=== PATIENT | male | born 1940 | race Caucasian/White ===

== ENCOUNTER → 2020-07-05 11:55 | Outpatient (CLI) | payer MEDICARE, SELFPAY ==
--- NOTE | ~2020-07-05 | XR_ITS ---
EXAMINATION: XR hip RT min 2V DATE: 07/05/2020 12:54 INDICATION: Right hip pain. TECHNIQUE: 2 views of right hip were obtained. COMPARISON: None. FINDINGS: Bone alignment is normal. No fracture. There is mild right hip osteoarthritis. Osteitis pub is is noted. There is a penile prosthesis. IMPRESSION: 1. Mild right hip osteoarthritis. Reviewed, dictated and finalized at location A. 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
== END ==
PROVIDERS: Visit Provider Physician Assistant
DX: M16.11 Unilateral primary osteoarthritis, right hip (principal)
CPT/HCPCS: 73502

== ENCOUNTER 2020-10-23 08:02 | Outpatient (CLI) | payer MEDICARE, SELFPAY | END 2020-10-23 08:03 | disposition home or self-care (01) | LOC: ANHCOVIDVC 08:02 | DX: Z23 Encounter for immunization (principal) | CPT/HCPCS: 0001A; 91300 ==

== ENCOUNTER 2020-11-13 08:30 | Outpatient (CLI) | payer MEDICARE, SELFPAY | END 2020-11-13 08:31 | LOC: ANHCOVIDVC 08:30 | DX: Z23 Encounter for immunization (principal) | CPT/HCPCS: 0002A; 91300 ==

== ENCOUNTER → 2021-04-08 10:25 | Outpatient (CLI) | payer MEDICARE, SELFPAY ==
--- NOTE | ~2021-04-08 | DEXA_ITS ---
Bone Density Report Name: Bigg Gonzalez Age: 80 Sex: Male Ethnicity: White Date of : 1940 Indication: screening for osteoporosis; history of glucocorticoids; Referring Provider: Drew, [place] Study: Bone densitometry was performed. Exam Date: April 08, 2021 Accession number: [id number] Bone Density: Region BMD T-score Z-score Classification AP Spine (L1, L2, L4) 0.947 -1.3 -0.1 Osteopenia Femoral Neck (Left) 0.877 -0.4 1.2 Normal Total Hip (Left) 1.067 0.2 1.3 Normal Femoral Neck (Right) 0.856 -0.5 1.0 Normal Total Hip (Right) 1.022 -0.1 1.0 Normal Total Hip Mean 1.045 0.1 1.2 Normal World Health Organization criteria for BMD impression classify patients as: Normal (T-score at or above -1.0), Osteopenia (T-score between -1.0 and -2.5), or Osteoporosis (T-score at or below -2.5). 10-year Fracture Risk(1): Major Osteoporotic Fracture 7.0% Hip Fracture 2.0% Reported Risk Factors: [place] (), Neck BMD=0.856, BMI=37.4, glucocorticoids (1) FRAX(R) Version 3.08. Fracture probability calculated for an untreated patient. Fracture probability may be lower if the patient has received treatment. Previous Exams: Region Exam Age BMD T-score BMD Change BMD Change Date g/cm2 vs Baseline vs Previous AP Spine(L1, L2, L4) 04/08/2021 80 0.947 -1.3 -0.097* -0.097* 09/30/2018 78 1.044 -0.4 Total Hip(Left) 04/08/2021 80 1.067 0.2 -0.014 -0.014 09/30/2018 78 1.081 0.3 Total Hip(Right) 04/08/2021 80 1.022 -0.1 -0.010 -0.010 09/30/2018 78 1.032 0.0 *Denotes significance at 95% confidence level, LSC for AP Spine = 0.022 g/cm2, LSC for Total Hip = 0.027 g/cm2 Clinical Information Provided by Patient: Has taken Glucocorticoids Has used the following medications: Vitamin D, Calcium, PREDNIZONE Patient maximum height was 71 No regular weight bearing exercise Does not regularly consume dairy products Drinks caffeinated beverages Impression: The patient has low bone mass, based on the Total Spine T-score. The patient has an estimated ten-year risk of hip fracture of 2% and an estimated ten-year risk of major fracture of 7%, based on the WHO FRAX algorithm. The patient has risk factors, including: history of glucocorticoid therapy. The BMD for the AP Spine(L1, L2, L4) decreased, changing by -0.097 since the last DXA exam. Discussion: BONE DENSITY I
== END ==
PROVIDERS: Visit Provider Physician Assistant
DX: Z51.81 Encounter for therapeutic drug level monitoring (principal); Z79.52 Long term (current) use of systemic steroids
CPT/HCPCS: 77080

== ENCOUNTER → 2021-05-09 08:38 | Outpatient (CLI) | payer MEDICARE, SELFPAY ==
--- NOTE | ~2021-05-09 | XR_ITS ---
EXAMINATION: XR lumbar spine 2-3V EXAM DATE: 05/09/2021 09:04 INDICATION: Chronic bilateral low back pain without sciatica. Right hip and right buttock pain. TECHNIQUE: Lumber spine frontal, lateral, lateral L5-S1 projections for interpretation. There is no prior study for comparison. FINDINGS: There is mild thoracolumbar dextrocurvature, lumbar levocurvature. Sacrum, sacroiliac joint s, sacral arcuate lines are intact. There is moderate abdominal aortic arteriosclerosis. Mild diffuse lumbar disc disease. The vertebral body heights appear maintained. There is moderate mid and lower l umbar facet arthropathy. Sacrum, sacroiliac joints, sacral arcuate lines are intact. IMPRESSION: 1. Moderate lumbar facet arthropathy. 2. Mild thoracolumbar scoliosis. Reviewed, dictated and finalized at location B.
== END ==
PROVIDERS: Visit Provider Physician Assistant
DX: M47.816 Spondylosis without myelopathy or radiculopathy, lumbar region (principal); M41.9 Scoliosis, unspecified; I70.0 Atherosclerosis of aorta
CPT/HCPCS: 72100

== ENCOUNTER 2023-09-08 05:42 | Inpatient (IN) | payer MEDICARE, SELFPAY ==
[2023-09-08] VITALS (31 sets, daily range): BP systolic 118–178; BP diastolic 65–109; PULSE 82–113; RESP 16–26; TEMP 36.5–37.3; O2SAT 90–97; BMI 33.7
--- NOTE | ~2023-09-08 | CT_ITS ---
EXAMINATION: CT chst ab clementine nazario w DATE: 09/08/2023 08:32 INDICATION: Left-sided chest pain and abdominal pain TECHNIQUE: Computed tomography (CT) of the chest, abdomen, pelvis, thoracic and lumbar spine was perf ormed with 100 cc Omnipaque 350 intravenous contrast. The dose-length product was 1627.95 mGy-cm. Aut omated exposure control and iterative reconstruction technique were employed. COMPARISON: None FINDINGS: CHEST: There is atherosclerosis of the aorta without aneurysm or dissection. Large hiatal hernia. The re is borderline mediastinal lymphadenopathy, likely reactive. No significant pleural or pericardial effusion. Heart there is dependent atelectasis. There is bilateral lower lobe consolidation, left gre ater than right, most likely atelectasis although superimposed pneumonia is not excluded. No endobron chial lesions. No pneumothorax. No suspicious pulmonary nodules or masses. Abdomen/pelvis: Fatty infiltration of the liver. The spleen, pancreas, adrenal glands and right kidne y are unremarkable. There is a small subcentimeter left renal cyst. Nonobstructive bowel pattern. No lymphadenopathy. There is a penile prosthetic reservoir in the right pelvis. There is a fat-containin g periumbilical hernia. Thoracic/lumbar spine: Vertebral body heights are maintained. There is disc narrowing at L5-S1. There is multilevel facet hypertrophy. No acute fracture or traumatic malalignment. There is mild symmetri c degenerative change of the sacroiliac joints. There are wedge compression deformities of T6-T10 wit h accentuated kyphosis, likely chronic. There is dextroscoliosis of the thoracic spine centered at T1 2. No significant paraspinal soft tissue abnormality. IMPRESSION: 1. Dependent consolidation lower lobes, left greater than right, atelectasis versus pneumonia. 2: No acute abnormality of the abdomen or pelvis. 3: Moderate thoracic and lumbar spondylosis with chronic appearing wedge compression deformities of T6-T10. Reviewed, dictated and finalized at location B. ING SPECIALIST IMPRESSION: 1. Dependent consolidation lower lobes, left greater than right, atelectasis ve rsus pneumonia. 2: No acute abnormality of the abdomen or pelvis. 3: Moderate thoracic and lumbar spondylosis with chronic appearing wedge compr ession deformities of T6-T10.
--- NOTE | ~2023-09-08 | CT_ITS ---
CT head without contrast Indication: Head injury Technique: Serial scans were obtained through the brain without the administration of contrast. Dose reduction technique was used on this scan by utilizing automated exposure control and iterative recon struction technique. The dose-length product (DLP) was 756.67 mGy-cm. Findings: There is no evidence of intracranial hemorrhage, mass lesion, or acute infarct. The ventri cles and subarachnoid spaces are dilated, consistent with mild atrophy. Low attenuation regions are seen within the periventricular white matter bilaterally, likely representing changes from chronic mi crovascular ischemic disease. There is no evidence of edema, mass effect or midline shift. The visu alized paranasal sinuses and mastoid air cells are clear. Impression: No intracranial hemorrhage, mass, or acute infarct. Atrophy and chronic white matter changes, as above. Reviewed, dictated and finalized at location . AL FRONT OFFICE ASSISTANT Impression: No intracranial hemorrhage, mass, or acute infarct. Atrophy and chronic white matter changes, as above.
--- NOTE | ~2023-09-08 | XR_ITS ---
Right Knee Technique: AP, lateral, and sunrise views were obtained. Clinical History: Pain Findings: No fracture or dislocation is seen. Osseous alignment is anatomic. There is mild to moderat e tricompartmental degenerative spurring. Chondrocalcinosis of the menisci noted. Moderate to large j oint effusion noted. Impression: No acute fracture or dislocation seen. [id number] degenerative change with moderate to large joint effusion. Chondrocalcinosis of the menisci. Reviewed, dictated and finalized at location M. D CARE Impression: No acute fracture or dislocation seen. [id number] degenerative change with moderate to large joint effusion. Chondrocalcinosis of the menisci.
--- NOTE | ~2023-09-08 | XR_ITS ---
Left Knee Technique: AP, lateral, and sunrise views were obtained. Clinical History: Pain Findings: No fracture or dislocation is seen. Osseous alignment is anatomic. There is mild spurring o f the patella and lateral joint line. Chondrocalcinosis of the menisci noted. No joint effusion is se en. Impression: Mild degenerative change, as above. Chondrocalcinosis of the menisci. Reviewed, dictated and finalized at location M. WOOD CONTRACTOR Impression: Mild degenerative change, as above. Chondrocalcinosis of the menisci.
--- NOTE | ~2023-09-08 | CT_ITS ---
Noncontrast CT scan of the cervical spine Technique: Multiple contiguous axial [address] images of the cervical spine were obtained and rec onstructed in 2D sagittal and coronal planes on the acquisition scanner. Dose reduction technique was used on this scan by utilizing automated exposure control, adjustment of the mA and/or kV according to patient size. The dose-length product (DLP) was 633.31 mGy-cm. Clinical History: Pain Findings: No fractures or dislocations. There are minimal degenerative changes in the cervical spine . The intervertebral disc spaces are preserved. No prevertebral soft tissue swelling. Impression: No fracture or subluxation of the cervical spine. Reviewed, dictated and finalized at location . ITY MAINTENANCE WORKER Impression: No fracture or subluxation of the cervical spine.
--- NOTE | ~2023-09-08 | XR_ITS ---
AP and oblique views of the left ribs Clinical History: Pain Findings: No rib fracture is seen. Osseous alignment is anatomic. Probable retrocardiac consolidation present. Cardiomediastinal contour is enlarged, with pacemaker device. Soft tissues are unremarkable . Impression: No rib fracture is seen. Probable retrocardiac consolidation. Correlate for pneumonia, atelectasis, or possibly mass lesion. C onsider chest CT as indicated. Cardiomegaly with pacemaker device. Reviewed, dictated and finalized at location M. P MANAGER Impression: No rib fracture is seen. Probable retrocardiac consolidation. Correlate for pneumonia, atelectasis, or p ossibly mass lesion. Consider chest CT as indicated. Cardiomegaly with pacemaker device.
--- NOTE | 2023-09-08 05:50 | ECG_ITS ---
Measurements Intervals [place] Rate: 81 P: OR: 0 QRS: -61 QRSD: 142 T: 83 QT: 391 QTc: 454 Interpretive Statements ATRIAL FIBRILLATION WITH NORMAL VENTRICULAR RESPONSE FREQUENT VENTRICULAR PREMATURE COMPLEXES LEFT BUNDLE BRANCH BLOCK ABNORMAL ECG NO PREVIOUS ECG AVAILABLE FOR COMPARISON Electronically Signed On 09-08-2023 6:52:18 TOOL AND DIE TECHNICIAN by Eleazar España D.O.
--- NOTE | 2023-09-08 07:33 | ED.FALL ---
HPI - Fall General Chief Complaint: Fall Stated Complaint: LEFT SIDE & BILATERAL KNEE PAIN S/P FALL Time Seen by Provider: 09/08/23 06:53 History of Present Illness HPI Narrative: 83-year-old male presenting to the emergency department for evaluation after having a ground level fall on Wednesday. Patient slipped on the ice. Patient is complaining of left-sided chest and abdominal pain along with right hip and right knee pain. Patient did strike his head but denies any loss of consciousness. Patient does have history of atrial fibrillation and is on Eliquis. Related Data Home Medications Medication Instructions Recorded Confirmed allopurinol 300 mg tablet 300 mg PO BID 09/08/23 09/08/23 apixaban 5 mg tablet (Eliquis) 5 mg PO BID 09/08/23 09/08/23 ascorbate calcium (vitamin C) 500 1,000 mg PO BID 09/08/23 09/08/23 mg capsule aspirin 81 mg capsule 81 mg PO DAILY 09/08/23 09/08/23 atorvastatin 20 mg tablet 20 mg PO BID 09/08/23 09/08/23 cholecalciferol (vitamin D3) 25 1,000 unit PO BID 09/08/23 09/08/23 mcg (1,000 unit) tablet (Vitamin D3) furosemide 20 mg tablet 20 mg PO BID 09/08/23 09/08/23 gabapentin 600 mg tablet 600 mg PO TID 09/08/23 09/08/23 glipizide 5 mg tablet 5 mg PO BID 09/08/23 09/08/23 insulin glargine 100 unit/mL (3 100 unit subcut BID 09/08/23 09/08/23 mL) subcutaneous pen (Lantus Solostar U-100 Insulin) metformin 500 mg tablet 500 mg PO BID 09/08/23 09/08/23 omega 5-yam-yat-fish oil 1,200 mg 1 cap PO BID 09/08/23 09/08/23 (144 mg-216 mg) capsule (Fish Oil) omeprazole 40 mg capsule,delayed 40 mg PO BID 09/08/23 09/08/23 release oxybutynin chloride 10 mg 10 mg PO BID 09/08/23 09/08/23 tablet,extended release 24 hr pen needle, diabetic 31 gauge x 09/08/23 09/08/23/ (BD Ultra-Fine Mini Pen Needle) potassium chloride 10 mEq 10 meq PO BID 09/08/23 09/08/23 tablet,extended release(part/cryst) sitagliptin phosphate 100 mg 100 mg PO DAILY 09/08/23 09/08/23 tablet (Januvia) Allergies Allergy/AdvReac Type Severity Reaction Status Date / Time No Known Allergies Allergy Verified 09/08/23 05:58 Review of Systems Review of Systems: All systems reviewed & are unremarkable except as noted in HPI and below [facility] Family History Family History (Updated 09/08/23 @ 17:40 by Jenny Thornton RN) Other Breast cancer Social History Social History Smoking status: Never smoker Alcohol intake: never Substance use: never Do You Feel Safe in your Home?: Yes Lack of Transportation: No Lack of Food: Never True Current Housing: I Have Housing Concerned About Future Housing: No Difficulty Paying Gas/Electric Bills: No Difficulty Paying for Meds: No Currently Unemployed: No Education: Associate Degree Difficulty w/ Childcare or Family Care: No Spiritual care concerns: No Exam Narrative: APPEARANCE: Ill-appearing HEAD: normocephalic, atraumatic. EYES: PERRLA/EOMI, conjunctivae clear. NOSE: Normal no drainage NECK: Supple. No adenopathy, no masses. RESPIRATORY: Decreased breath sounds bilaterally CARDIOVASCULAR: Regular rate and rhythm without murmurs rubs or gallops. ABDOMINAL: Soft, nontender, nondistended, normal bowel sounds MUSCULOSKELETAL: Bilateral knee effusions with no overlying erythema, no midline back tenderness to palpation NEURO: Alert. Cranial nerves II through XII intact. Good gait. Good coordination SKIN: Warm, dry. Normal Color Course Course Emergency Course: 83-year-old male presenting to the emergency department for evaluation after a fall on Wednesday. Patient was increasingly lethargic today. Patient had negative head cervical spine thoracic spine and lumbar spine imaging. Patient had no abnormalities his CTA chest abdomen pelvis other than possible pneumonia. Patient had negative imaging of his knees bilaterally. Patient and family are updated on the results of the possible pneumonia and patient prefers to be dischar
[2023-09-08 08:02] LABS: Basophils Percent Auto 0.2 % (0.2-1.2); Hematocrit 43.7 % (42.0-52.0); Hemoglobin 14.1 g/dL (14.0-18.0); Immature Granulocyte Absolute 0.06 K/mm3 (0.00-0.031); Immature Granulocyte Percent A 0.4 % (0-0.5); Immature Platelet Fraction Pct 11.1 % (0.9-11.2); Lymphocytes Absolute Auto 0.85 K/mm3 (0.9-3.2); Lymphocytes Percent Auto 6.3 % (18.3-44.2); Mean Corpuscular HGB Conc 32.3 g/dl (32-36); Mean Corpuscular Hemoglobin 31.4 pg (26-34); Mean Corpuscular Volume 97.3 fl (80-100); Mean Platelet Volume 12.9 fl (7.4-10.4); Monocytes Absolute Auto 1.6 K/mm3 (0.1-0.6); Monocytes Percent Auto 11.9 % (2.6-8.5); Neutrophils Percent Auto 81.2 % (45.5-73.1); Platelet Count Result 113 k/mm3 (150-375); Red Blood Count 4.49 M/mm3 (4.6-6.20); Red Cell Distribution Width 14.7 % (11.5-14.5); White Blood Count 13.5 K/mm3 (4.5-10.0)
[2023-09-08 08:08] LABS: Alanine Aminotransferase 19 U/L (6-50); Albumin Level 4.4 g/dL (3.5-5.1); Alkaline Phosphatase 105 U/L (38-126); Anion Gap 13 mmol/L (8-16); Aspartate Amino Transferase 24 U/L (17-59); Bilirubin,Total 1.9 mg/dL (0.2-1.3); Blood Urea Nitrogen 21 mg/dL (9-20); Calcium 9.7 mg/dL (8.4-10.2); Carbon Dioxide 26 mmol/L (22-30); Chloride 98 mmol/L (98-107); Estimated CRCL calculation 56 ml/min; Estimated Glomerular Filt Rate > 60; Glucose 176 mg/dL (65-110); Lipase 35 U/L (23-300); Potassium 3.7 mmol/L (3.4-5.0); Sodium 137 mmol/L (137-145)
[2023-09-08 08:16] LABS: INR 1.5; Partial Thromboplastin Time 39.6 SECONDS (22.3-36.8); Prothrombin Time 18.4 Seconds (11.1-14.7)
[2023-09-08 08:34] LABS: Influenza A QL RT-PCR Negative (Negative); Influenza B QL RT-PCR Negative (Negative); RSV RNA, RT-PCR Negative (Negative); SARS-CoV-2 RNA PCR Negative (Negative)
--- NOTE | 2023-09-08 10:45 | PC.NURSE ---
Unsuccessful attempt at ambulating pt
[2023-09-08 12:05] LABS: Troponin I 0.049 ng/mL (0.000-0.034)
--- NOTE | 2023-09-08 12:06 | PC.NURSE ---
Pt unable to urinate to provide urine sample at this time.
--- NOTE | 2023-09-08 12:08 | ECG_ITS ---
Measurements Intervals [place] Rate: 85 P: [place]: 0 QRS: -60 QRSD: 125 T: 87 QT: 390 QTc: 465 Interpretive Statements ATRIAL FIBRILLATION WITH NORMAL VENTRICULAR RESPONSE VENTRICULAR PREMATURE COMPLEXES LEFT ANTERIOR FASCICULAR BLOCK BORDERLINE ST-T WAVE ABNORMALITY- HIGH LATERAL LEADS ABNORMAL ECG COMPARED TO ECG 09/08/2023 06:03:54 LEFT ANTERIOR FASCICULAR BLOCK NOW PRESENT Electronically Signed On 09-08-2023 12:45:04 PUNCH OPERATOR by Eleazar España D.O.
[2023-09-08] MEDS: AZITHROMYCIN 500 MG/NS 250 ML 500 MG/250 ML BAG 250 MG IVPB (12:17)
[2023-09-08 12:50] LABS: NT Pro B Type Natriuretic Pept 3190 pg/mL (19.9-100)
[2023-09-08 13:19] LABS: Troponin I 0.058 ng/mL (0.000-0.034)
[2023-09-08] MEDS: FUROSEMIDE INJ 40 MG/4 ML VIAL IV PUSH (13:45)
[2023-09-08 14:02] LABS: Appearance Urine Clear (Clear); Bacteria Urine None Seen /hpf; Bilirubin Urine Negative (Negative); Blood Urine Negative (Negative); Color Urine Yellow (Yellow); Glucose Urine UA Negative (Negative); Ketones Urine Trace mg/dL (Negative); Leukocyte Esterase Ur Negative LEU/UL (Negative); Nitrate Urine Negative (Negative); Protein Urine 2+ mg/dL (Negative); RBC Urine 0-2 /hpf (0-2); Squamous Epithelial Cell Urine None seen /hpf (Few); WBC Urine 0-5 /hpf; pH Urine 5.5 (5.0-9.0)
[2023-09-08 14:10] LABS: Add Urine Microscopic? YES
[2023-09-08 16:34] LABS: Troponin I 0.058 ng/mL (0.000-0.034)
--- NOTE | 2023-09-08 17:00 | ADMGEN ---
This patient, Bigg Gonzalez, was admitted to IMU Room 201-01. Patient/family oriented to hospital policies and general routines including ID bracelet, bed and alarms, visiting hours, pain management, procedures, bathroom and other care routines, personal items, smoking policy, room service/diet, and visiting hours. Information on how to activate the Rapid Response Team has been discussed. Patient/Family are encouraged to report perceived risks to care and to ask questions if they do not understand what they are told or what they should do.
--- NOTE | 2023-09-08 21:05 | PM.IMHP ---
H&P: HPI History of Present Illness Date/Time: 09/08/23 14:30 Chief Complaint: Left chest and knee pain after fall. Narrative: This is a very pleasant 83-year-old gentleman with paroxysmal atrial fibrillation on chronic anticoagulation, coronary artery disease with history of coronary artery bypass graft, valvular heart disease status post valve replacement, cardiomyopathy status post ICD insertion, hypertension, hyperlipidemia, and type 2 diabetes mellitus who presented to the emergency department via EMS from home for evaluation of left chest and knee pain after a fall. The patient provides the following history. On Wednesday he went outside to get something out of the car when he slipped on the ice and fell to the ground, striking his right hip and knee before rolling over and hitting the left side of his chest and then his head on the ground. He was able to get himself up into the house though he has had increasing pain and stiffness since that time. His knees hurt, right much worse than the left, and he has significant swelling in that knee. He also has left-sided chest pain and is barely even able to sit himself up as it makes that pain worse. His oral intake has not been good since yesterday. Overall he feels weak and unwell. Family members report that he seems to be a bit lethargic. While I was in the room he was noted to have a bit of a cough. With further questioning he has had a cough productive of yellowish phlegm and some congestion. He denies loss of consciousness in the fall, fever, chills, sweats, sore throat, exertional chest pain, pleuritic pain, vomiting, diarrhea, and dysuria. He was afebrile on arrival to the emergency department. Labs were significant for WBC count of 13.5, platelet 113, troponin 0.049, proBNP 3190. He tested negative for influenza, RSV, and COVID. Brain and cervical spine CT showed no acute findings. Chest and rib x-rays showed no fracture. CT of this chest, abdomen, and pelvis showed nothing chronic but did note dependent consolidation the lower lobes which could represent atelectasis versus pneumonia. Right knee x-ray showed a moderate to large joint effusion. He was started on antibiotics for possible pneumonia he is being admitted in this setting for further treatment and supportive care. Review of Systems Review of Systems: Twelve systems were reviewed and are negative except for as per HPI. PMFSH Past Medical History Medical History (Updated 09/08/23 @ 21:22 by Enedelia Diehl PA-C) Arthritis Atrial fibrillation Chronic anticoagulation Congestive heart failure Coronary artery disease Hypertension Insulin dependent type 2 diabetes mellitus Obstructive sleep apnea on CPAP Surgical History Surgical History (Updated 09/08/23 @ 21:15 by Enedelia Diehl PA-C) History of ankle surgery History of cardiac defibrillator placement History of coronary artery bypass graft History of heart valve replacement Family History Family History Other Breast cancer Social History Social History (Updated 09/08/23 @ 21:16 by Enedelia Diehl PA-C) Social History: Surrogate medical decision maker: Tennille Gonzalez, spouse. Code status: Full code. Smoking status: Never smoker Alcohol intake: never Substance use: never Do You Feel Safe in your Home?: Yes Lack of Transportation: No Lack of Food: Never True Current Housing: I Have Housing Concerned About Future Housing: No Difficulty Paying Gas/Electric Bills: No Difficulty Paying for Meds: No Currently Unemployed: No Education: Associate Degree Difficulty w/ Childcare or Family Care: No Additional living arrangements comments: Lives with spouse in [place]. Additional occupation/education comments: Continues to work. 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 Spiritual care concerns: No Meds Home Medications and Allergies Home Me
[2023-09-08 22:09] LABS: Hemoglobin A1C 6.4 % (<5.7)
[2023-09-09] VITALS (17 sets, daily range): BP systolic 123–160; BP diastolic 56–78; PULSE 60–108; RESP 16–28; TEMP 36.4–37.8; O2SAT 93–98
[2023-09-09 05:14] LABS: Hematocrit 39.8 % (42.0-52.0); Hemoglobin 12.9 g/dL (14.0-18.0); Mean Corpuscular HGB Conc 32.4 g/dl (32-36); Mean Corpuscular Hemoglobin 31.4 pg (26-34); Mean Corpuscular Volume 96.8 fl (80-100); Mean Platelet Volume 12.8 fl (7.4-10.4); Platelet Count Result 118 k/mm3 (150-375); Red Blood Count 4.11 M/mm3 (4.6-6.20); Red Cell Distribution Width 14.9 % (11.5-14.5); White Blood Count 13.2 K/mm3 (4.5-10.0)
[2023-09-09 05:33] LABS: Anion Gap 9 mmol/L (8-16); Blood Urea Nitrogen 30 mg/dL (9-20); Calcium 9.3 mg/dL (8.4-10.2); Carbon Dioxide 27 mmol/L (22-30); Chloride 101 mmol/L (98-107); Estimated CRCL calculation 44 ml/min; Estimated Glomerular Filt Rate 48; Glucose 151 mg/dL (65-110); Magnesium 1.9 mg/dL (1.6-2.3); Potassium 3.5 mmol/L (3.4-5.0); Sodium 137 mmol/L (137-145)
[2023-09-09] MEDS: AZITHROMYCIN 500 MG/NS 250 ML 500 MG/250 ML BAG 250 MG IVPB ×2 (06:04→12:14)
[2023-09-09] MEDS: INSULIN ASPART (*BKC) 100 UNITS/ML SUB-Q (08:24)
[2023-09-09] MEDS: ASPIRIN 81 MG ENTERIC TABLET PO (08:35)
[2023-09-09] MEDS: CHOLECALCIFEROL 1,000 UNITS TABLET 1000 UNITS PO ×2 (08:35→17:52)
[2023-09-09] MEDS: OMEGA 3 POLYUNSAT FATTY ACIDS 1 GM CAP PO ×2 (08:35→17:51)
[2023-09-09] MEDS: GABAPENTIN 300 MG CAPSULE 600 MG PO ×3 (08:36→17:51)
[2023-09-09] MEDS: allopurinoL 300 MG TABLET PO ×2 (08:37→17:52)
[2023-09-09] MEDS: ASCORBIC ACID 500 MG TABLET 1000 MG PO ×2 (08:40→17:51)
[2023-09-09] MEDS: POTASSIUM CHLORIDE 10 MEQ ER TABLET PO ×2 (08:42→17:52)
[2023-09-09] MEDS: PANTOPRAZOLE 40 MG TABLET PO ×2 (08:42→20:03)
[2023-09-09] MEDS: APIXABAN 5 MG TABLET PO ×2 (08:43→20:03)
[2023-09-09] MEDS: FUROSEMIDE 20 MG TABLET PO (08:46)
[2023-09-09 08:51] LABS: Glucose Point of Care 211 mg/dl (65-105)
[2023-09-09] MEDS: INSULIN GLARGINE (*BKC) 100 UNITS/ML 10 UNITS SUB-Q ×2 (09:00→17:58)
[2023-09-09] MEDS: oxyBUTYnin CHLORIDE XL 5 MG TAB.ER.24 10 MG PO (10:49)
[2023-09-09] MEDS: ATORVASTATIN 20 MG TABLET PO (10:50)
[2023-09-09 11:41] LABS: Glucose Point of Care 99 mg/dl (65-105)
--- NOTE | 2023-09-09 11:41 | PM.IMPN ---
Progress Note: A&P Assessment and Plan (1) Pneumonia: Code(s): J18.9 - Pneumonia, unspecified organism Status: Acute Assessment and Plan: Acute; CAP Azithromycin, Ceftriaxone (2) Elevated troponin: Code(s): R79.89 - Other specified abnormal findings of blood chemistry Status: Acute Assessment and Plan: maybe 2/2 underlying CAD or stress of acute illness Will consult Cardiology (3) Knee effusion: Code(s): M25.469 - Effusion, unspecified knee Status: Acute Assessment and Plan: Traumatic, post-fall Post-tap. Seemed hemorrhagic will consult orthopedic surgery (4) Insulin dependent type 2 diabetes mellitus: Code(s): E11.9 - Type 2 diabetes mellitus without complications; Z79.4 - prison (current) use of insulin Status: Acute Assessment and Plan: Insulin, Basal+correctional (5) Obstructive sleep apnea on CPAP: Code(s): G47.33 - Obstructive sleep apnea (adult) (pediatric) Status: Acute (6) Hypertension: Code(s): I10 - Essential (primary) hypertension Status: Acute (7) Atrial fibrillation: Code(s): I48.91 - Unspecified atrial fibrillation Status: Acute Assessment and Plan: on Eliquis (8) Chronic anticoagulation: Code(s): Z79.01 - intermediate school teacher (current) use of anticoagulants Status: Acute (9) Congestive heart failure: Code(s): I50.9 - Heart failure, unspecified Status: Acute Assessment and Plan: Elevated BNP IV Lasix; Cardiology consulted (10) Physical deconditioning: Code(s): R53.81 - Other malaise Status: Acute Assessment and Plan: PT/OT eval and Rx (11) Chest pain: Code(s): R07.9 - Chest pain, unspecified Status: Acute Plan The patient presented to the emergency department via EMS from home for evaluation of left-sided knee pain after a fall on Wednesday as detailed in HPI. Labs, imaging, EKG, and all reports were personally reviewed. Multiple CTs and imaging were taken and did not show any acute fractures. He has reproducible tenderness to palpation over the left anterior chest wall which is likely related to the fall. Right knee is swollen due to an effusion from the fall as well. Analgesics available as needed. He was encouraged to elevate that right knee. Cooling pad ordered. In addition to pain from the falls, he has had congestion and cough with generalized malaise and he has evidence of pneumonia thus he has been started on azithromycin and ceftriaxone. Incidentally his troponin is elevated. Again, his chest pain is likely musculoskeletal in etiology it is unlikely related to acute coronary syndrome. Given his cardiac history, troponin will be trended to peak. He is clinically compensated with regards to a CHF standpoint and we will avoid over-hydration. Monitor volume status closely. He is in chronic atrial fibrillation is rate controlled. Continue apixaban for stroke prophylaxis. Continue basal insulin. Initiate sliding scale insulin, Accu-Cheks, and hypoglycemic protocol. Check hemoglobin A1c. CPAP will be provided for the patient to use while hospitalized. Blood pressures were reviewed and they are stable. His home medications will be reviewed and resumed as appropriate. Assessment and plan (1) Pneumonia: ?Code(s): J18.9 - Pneumonia, unspecified organism ?Status:?Acute (2) Elevated troponin: ?Code(s): R79.89 - Other specified abnormal findings of blood chemistry ?Status:?Acute (3) Knee effusion: ?Code(s): M25.469 - Effusion, unspecified knee ?Status:?Acute (4) Insulin dependent type 2 diabetes mellitus: ?Code(s): E11.9 - Type 2 diabetes mellitus without complications; Z79.4 - prison (current) use of insulin ?Status:?Acute (5) Obstructive sleep apnea on CPAP: ?Code(s): G47.33 - Obstructive sleep apnea (adult) (pediatric) ?Status:?Acute (6) Hypertension: ?Code(
[2023-09-09] MEDS: CYCLOBENZAPRINE HCL 10 MG TABLET PO (12:06)
[2023-09-09] MEDS: KETOROLAC 15 MG/ML VIAL (*BKC) IV PUSH (12:09)
[2023-09-09 12:52] LABS: Troponin I 0.065 ng/mL (0.000-0.034)
--- NOTE | 2023-09-09 13:24 | PM.CNCAR ---
Assessment and Plan Assessment and plan (1) Elevated troponin: Code(s): R79.89 - Other specified abnormal findings of blood chemistry Status: Acute Assessment and Plan: Troponin levels are 0.049, 0.058, 0.058, and 0.065. Mildly elevated and flat. This may represent direct cardiac injury as a result of recent chest trauma with his fall. This does not represent ACS/acute plaque rupture. His chest pain is atypical and clearly related to recent injury. Will order echo, but aside from this no further cardiac workup indicated or recommended. (2) Congestive heart failure: Code(s): I50.9 - Heart failure, unspecified Status: Acute Assessment and Plan: He does not appear to be in any decompensated heart failure. Would shift him back to his home dose of furosemide. (3) Chronic anticoagulation: Code(s): Z79.01 - halfway (current) use of anticoagulants Status: Acute Assessment and Plan: Continue apixaban. No significant bleeding following his fall. (4) Hypertension: Code(s): I10 - Essential (primary) hypertension Status: Acute Assessment and Plan: Generally above goal. Will start lisinopril 5mg daily. (5) Atrial fibrillation: Code(s): I48.91 - Unspecified atrial fibrillation Status: Acute Assessment and Plan: Chronic atrial fibrillation. On apixaban. (6) Pacemaker: Code(s): Z95.0 - Presence of cardiac pacemaker Status: Acute Assessment and Plan: Will have device interrogated History of Present Illness History of Present Illness Consult date/time: 09/09/23 13:24 Requesting physician: David Ignacio MD Consult reason: Other (elevated troponin) Reason For Visit: LEFT SISDED CHEST PAIN,ELEVATED TROPONIN,HEAD INJU Narrative: Bigg Gonzalez is an 83-year-old male with hypertension, hyperlipidemia, diabetes mellitus type 2, atrial fibrillation with symptomatic bradycardia and now with permanent pacemaker in place, and history of severe aortic stenosis status post bioprosthetic aortic valve replacement. This is a patient who comes to the hospital after sustaining a ground level fall. Patient slipped on the ice on Wednesday and according to patient's daughter he landed directly on his chest. He also injured his knee. His workup has been negative for any fractures. He does endorse left-sided chest pain which is reproducible. He does not have any chest pain at rest. Denies any chest pain or pressure prior to his fall but does note that intermittently he will feel a zap in his chest. Prior to the fall on Wednesday he was in his usual state of health and despite his age is still very active and still works every day. Review of Systems Review of Systems: All systems reviewed & are unremarkable except as noted in HPI and below PMFSH Past Medical History Medical History Arthritis Atrial fibrillation Chronic anticoagulation Congestive heart failure Coronary artery disease Hypertension Insulin dependent type 2 diabetes mellitus Obstructive sleep apnea on CPAP Surgical History Surgical History History of ankle surgery History of cardiac defibrillator placement History of coronary artery bypass graft History of heart valve replacement Family History Family History Other Breast cancer Social History Social History Social History: Surrogate medical decision maker: Tennille Gonzalez, spouse. Code status: Full code. Smoking status: Never smoker Alcohol intake: never Substance use: never Do You Feel Safe in your Home?: Yes Lack of Transportation: No Lack of Food: Never True Current Housing: I Have Housing Concerned About Future Housing: No Difficulty Paying Gas/Electric
--- NOTE | 2023-09-09 16:10 | PM.PNORT ---
Progress Note: A&P Assessment and Plan (1) Osteoarthritis of right knee: Code(s): M17.11 - Unilateral primary osteoarthritis, right knee Status: Acute Assessment and Plan: Patient has an arthritic right knee. I believe he probably contused did when he fell. He has degenerative changes. I will see him as an outpatient after his other symptoms have resolved. If the knee still hurts could consider an injection. He is mainly complaining of left rib pain at this point. Subjective Subjective Date/Time Seen: 09/09/23 16:10 Principal diagnosis: Painful swollen right knee. Review of Systems Review of Systems: All systems reviewed & are unremarkable except as noted in HPI and below Exam Narrative: Patient has pain with manipulation of his right knee. I can easily moved from 10? lacking short of straight to 90? without too much pain. He does have swelling in the knee. He is quite somnolent and unable to stand at this point. Objective Data Vital Signs Vital Signs: Vital Signs - 24 hr 09/08/23 17:14 09/08/23 18:00 09/08/23 17:15 Temperature 99.2 F Pulse Rate 93 93 Respiratory Rate 20 Blood Pressure 145/81 H Pulse Oximetry 96 Oxygen Delivery Room Air 09/08/23 19:44 09/08/23 22:50 09/08/23 23:11 Temperature 98.6 F 97.7 F Pulse Rate 82 108 H Respiratory Rate 20 20 Blood Pressure 150/65 H 145/79 H Pulse Oximetry 96 96 97 Oxygen Delivery 09/08/23 20:00 09/08/23 20:00 09/08/23 22:00 Temperature Pulse Rate 90 108 H 98 Respiratory Rate 20 Blood Pressure Pulse Oximetry 97 Oxygen Delivery Room Air 09/09/23 00:00 09/09/23 00:00 09/09/23 03:31 Temperature 97.7 F Pulse Rate 100 108 H 93 Respiratory Rate 20 20 Blood Pressure 160/76 H Pulse Oximetry 97 94 Oxygen Delivery Room Air 09/09/23 04:00 09/09/23 02:00 09/09/23 04:00 Temperature Pulse Rate 93 97 96 Respiratory Rate 20 Blood Pressure Pulse Oximetry 94 Oxygen Delivery Room Air 09/09/23 06:00 09/09/23 07:38 09/09/23 11:42 Temperature 100.0 F H 98.3 F Pulse Rate 94 94 89 Respiratory Rate 16 24 H Blood Pressure 136/70 140/78 Pulse Oximetry 93 95 Oxygen Delivery 09/09/23 08:00 09/09/23 08:00 09/09/23 10:00 Temperature Pulse Rate 101 H 98 Respiratory Rate Blood Pressure Pulse Oximetry Oxygen Delivery Room Air Intake/Output Intake/Output: Intake & Output 09/06/23 09/07/23 09/08/23 09/09/23 23:59 23:59 23:59 23:59 Intake Total 300 970 Output Total 500 Balance 300 470 Meds/Results Medications: Active Medications Generic Name Dose Route Start Last Admin Trade Name Freq PRN Reason Stop Dose Admin Acetaminophen 650 mg 09/08/23 13:38 Acetaminophen 325 Mg Tablet PO Q4H PRN Mild Pain (1-3) or Fever Allopurinol 300 mg 09/09/23 09:00 09/09/23 08:37 Allopurinol 300 Mg Tablet PO 300 mg BID DAYSI Administration Apixaban 5 mg 09/09/23 09:00 09/09/23 08:43 Apixaban 5 Mg Tablet PO 5 mg Q12HR DAYSI Administration Ascorbic Acid 1,000 mg 09/09/23 09:00 09/09/23 08:40 Ascorbic Acid 500 Mg Tablet PO 10/09/23 08:59 1,000 mg BID DAYSI Administration Aspirin 81 mg 09/09/23 09:00 09/09/23 08:35 Aspirin 81 Mg Enteric Tablet PO 10/09/23 08:59 81 mg DAILY DAYSI Administration Atorvastatin Calcium 20 mg 09/09/23 09:00 09/09/23 10:50 Atorvastatin 20 Mg Tablet PO 20 mg DAILY DAYSI Administration Dextrose 12.5 gm 09/08/23 21:25 Dextrose 50% 25 Gm/50 Ml Syringe IV PUSH PRN PRN Hypoglycemia Protocol Fish Oil 1 gm 09/09/23 09:00 09/09/23 08:35 Uvalda 3 Polyunsat Fatty Acids 1 Gm Cap PO 1 gm BID DAYSI Administration Furosemide 20 mg 09/09/23 09:00 09/09/23 08:46 Furosemide 20 Mg Tablet PO 20 mg BID DAYSI Administration Furosemide 20 mg 09/09/23 17:00 Furosemide Inj 40 Mg/4 Ml Vial IV PUSH BID DAYSI Gabapentin 600 mg
--- NOTE | 2023-09-09 16:24 | PCOTNOTE ---
Attempted occupational therapy evaluation, RN cleared however patient was asleep and daughter was present stating that the medication he is on knocked him out and she prefers for therapy to check in tomorrow. Following.
--- NOTE | 2023-09-09 16:30 | PC.NURSE ---
On 09/09/23, the student, [ Ghassan Dhaliwal], provided care and completed [facility] documentation on this patient. I have reviewed the student's documentation and agree with the findings.
[2023-09-09 16:51] LABS: Glucose Point of Care 84 mg/dl (65-105)
[2023-09-09] MEDS: DOCUSATE SODIUM 100 MG CAPSULE PO (17:51)
[2023-09-09] MEDS: FUROSEMIDE INJ 40 MG/4 ML VIAL 20 MG IV PUSH (17:52)
[2023-09-09] MEDS: polyethylene glycoL 3350 17 GM POWD.PACK PO (17:52)
[2023-09-09] MEDS: ACETAMINOPHEN 325 MG TABLET 650 MG PO (20:15)
[2023-09-09 20:22] LABS: Glucose Point of Care 135 mg/dl (65-105)
[2023-09-10] VITALS (17 sets, daily range): BP systolic 102–134; BP diastolic 53–90; PULSE 77–100; RESP 18–20; TEMP 36.1–36.8; O2SAT 93–97; BMI 10.0
--- NOTE | 2023-09-10 | ECHO_ITS ---
Patient Info Name: Bigg Gonzalez Age: 83 years : 1940 Gender: Male Ht: 71 in Wt: 235 lbs BSA: 2.34 m2 HR: 79 bpm BP: 126 / 85 mmHg Heart Rhythm: Sinus Rhythm Technical Quality: Fair Exam Date: 09/10/2023 9:41 AM Exam Location: Echo Lab Patient Status: Inpatient Admit Date: 09/09/2023 Staff Ordering Physician: Mily Callahan Technical Photographer: Beth Bender RDCS Attending Provider: Veronica Martinez MD Referring Physician: Sindy LAY; Exam Type: CA echo dop color flow w con Study Info Indications - chest tramua Complete two-dimensional, color flow and Doppler transthoracic echocardiogram is performed with contrast to opacify the left ventricle and to improve the deliniation of the left ventricle endocardial borders. Contrast/Agitated Saline Contrast/Ag. Saline: Definity Amount: 3.00 ml Summary 1. Technically somewhat challenging echocardiogram. 2. Moderate biatrial dilation. 3. Left ventricular hypertrophy with normal LV size and overall normal systolic function. 4. Abnormal septal motion likely related to bundle branch block. 5. Normally functioning bioprosthetic aortic valve(valve type and size not specified). Left Ventricle Left ventricular chamber dimension is normal. Left ventricular systolic function is normal, estimated at 55-60%. There is mild concentric increased left ventricular wall thickness. Left ventricular septal wall motion is abnormal with septal motion related to bundle branch block. The left ventricular diastolic function is indeterminate. Right Ventricle Right ventricular chamber dimension is normal. Left Atria Left atrial chamber dimension is moderately enlarged. Right Atria Right atrial chamber dimension is moderately enlarged. Pulmonic Valve The pulmonic valve is not well visualized. Mitral Valve The mitral valve has normal leaflets. The mitral valve annulus is mildly calcified. Tricuspid Valve The tricuspid valve leaflets are normal. Pericardium/Pleural The pericardium appears normal. Aorta The aortic root size at the sinus of Valsalva is normal. Left Ventricular Outflow Tract Name Value Normal LVOT 2D LVOT Diameter 2.13 cm LVOT Doppler LVOT Peak Gradient 4 mmHg LVOT Mean Gradient 2 mmHg LVOT VTI 22.62 cm LVOT VTI/AV VTI Ratio 0.50 LVOT Stroke Volume 80.40 ml LVOT CO 2.51 l/min LVOT CI 1.07 L/min/m2 Pulmonic Valve Name Value Normal RVOT Doppler RVOT Peak Gradient 2 mmHg PV Doppler PV Peak Gradient 4 mmHg Mitral Valve Name Valu
[2023-09-10] MEDS: WATER FOR IRRIGATION, STERILE 1,000 ML BOTTLE 1000 ML (04:00)
[2023-09-10] MEDS: ACETAMINOPHEN 325 MG TABLET 650 MG PO (04:02)
[2023-09-10 04:59] LABS: Basophils Absolute Auto 0.1 K/mm3 (0.0-0.1); Basophils Percent Auto 0.5 % (0.2-1.2); Eosinophils Absolute Auto 0.2 K/mm3 (0-0.3); Eosinophils Percent Auto 1.9 % (0-4.4); Hematocrit 37.5 % (42.0-52.0); Hemoglobin 11.9 g/dL (14.0-18.0); Immature Granulocyte Absolute 0.05 K/mm3 (0.00-0.031); Immature Granulocyte Percent A 0.5 % (0-0.5); Lymphocytes Percent Auto 17.4 % (18.3-44.2); Mean Corpuscular HGB Conc 31.7 g/dl (32-36); Mean Corpuscular Hemoglobin 30.9 pg (26-34); Mean Corpuscular Volume 97.4 fl (80-100); Mean Platelet Volume 12.4 fl (7.4-10.4); Monocytes Percent Auto 10.7 % (2.6-8.5); Neutrophils Absolute Auto 6.7 K/mm3 (1.3-6.7); Platelet Count Result 122 k/mm3 (150-375); Red Blood Count 3.85 M/mm3 (4.6-6.20); Red Cell Distribution Width 14.8 % (11.5-14.5); White Blood Count 9.8 K/mm3 (4.5-10.0)
[2023-09-10 05:23] LABS: Alanine Aminotransferase 21 U/L (6-50); Albumin Level 3.3 g/dL (3.5-5.1); Alkaline Phosphatase 82 U/L (38-126); Anion Gap 9 mmol/L (8-16); Aspartate Amino Transferase 50 U/L (17-59); Bilirubin,Total 1.5 mg/dL (0.2-1.3); Blood Urea Nitrogen 44 mg/dL (9-20); Calcium 9.2 mg/dL (8.4-10.2); Carbon Dioxide 26 mmol/L (22-30); Chloride 101 mmol/L (98-107); Estimated CRCL calculation 40 ml/min; Estimated Glomerular Filt Rate 41; Glucose 124 mg/dL (65-110); Potassium 3.6 mmol/L (3.4-5.0); Sodium 136 mmol/L (137-145)
[2023-09-10 08:54] LABS: Glucose Point of Care 141 mg/dl (65-105)
[2023-09-10] MEDS: PERFLUTREN LIPID MICROSPHERES 1.5 ML VIAL DILUTED TO 10 ML TOTAL VOLUME IV PUSH (09:20)
[2023-09-10] MEDS: INSULIN GLARGINE (*BKC) 100 UNITS/ML 10 UNITS SUB-Q ×2 (10:33→17:52)
[2023-09-10] MEDS: PANTOPRAZOLE 40 MG TABLET PO ×2 (10:38→20:31)
[2023-09-10] MEDS: POTASSIUM CHLORIDE 10 MEQ ER TABLET PO ×2 (10:38→17:51)
[2023-09-10] MEDS: APIXABAN 5 MG TABLET PO ×2 (10:38→20:31)
[2023-09-10] MEDS: allopurinoL 300 MG TABLET PO ×2 (10:38→17:51)
[2023-09-10] MEDS: ASCORBIC ACID 500 MG TABLET 1000 MG PO ×2 (10:38→17:51)
[2023-09-10] MEDS: ASPIRIN 81 MG ENTERIC TABLET PO (10:38)
[2023-09-10] MEDS: GABAPENTIN 300 MG CAPSULE 600 MG PO ×3 (10:39→17:52)
[2023-09-10] MEDS: ATORVASTATIN 20 MG TABLET PO (10:39)
[2023-09-10] MEDS: oxyBUTYnin CHLORIDE XL 5 MG TAB.ER.24 10 MG PO (10:39)
[2023-09-10] MEDS: OMEGA 3 POLYUNSAT FATTY ACIDS 1 GM CAP PO ×2 (10:39→17:51)
[2023-09-10] MEDS: lisinopriL 5 MG TABLET PO (10:39)
[2023-09-10] MEDS: CHOLECALCIFEROL 1,000 UNITS TABLET 1000 UNITS PO ×2 (10:39→17:52)
[2023-09-10] MEDS: FUROSEMIDE INJ 40 MG/4 ML VIAL 20 MG IV PUSH ×2 (10:40→17:52)
[2023-09-10 11:46] LABS: Glucose Point of Care 267 mg/dl (65-105)
--- NOTE | 2023-09-10 11:48 | IVDEFINITY ---
Prior to administration of IV Definity the patient was educated on the risks and benefits of the imaging enhancing agent including potential adverse side effects. The patient verbalized understanding. Allergies were verified. No exclusion criteria were identified and at least one of the following inclusion criteria were met: 1) physician request, 2) patient technically difficult to image (per the [employer]chocardi[employer] guidelines of two or more segments not discernable within the apical view), or 3) questionable left ventricular function. ?
[2023-09-10] MEDS: AZITHROMYCIN 500 MG/NS 250 ML 500 MG/250 ML BAG 250 MG IVPB (13:25)
[2023-09-10] MEDS: INSULIN ASPART (*BKC) 100 UNITS/ML SUB-Q (13:26)
--- NOTE | 2023-09-10 14:51 | PM.IMPN ---
Progress Note: A&P Assessment and Plan (1) Pneumonia: Code(s): J18.9 - Pneumonia, unspecified organism Status: Acute Assessment and Plan: Acute; CAP Azithromycin, Ceftriaxone (2) Elevated troponin: Code(s): R79.89 - Other specified abnormal findings of blood chemistry Status: Acute Assessment and Plan: maybe 2/2 underlying CAD or stress of acute illness Will consult Cardiology Per Cardiology: Troponin levels are 0.049, 0.058, 0.058, and 0.065.? Mildly elevated and flat.? This may represent direct cardiac injury as a result of recent chest trauma with his fall.? This does not represent ACS/acute plaque rupture.? His chest pain is atypical and clearly related to recent injury.? Will order echo, but aside from this no further cardiac workup indicated or recommended. (3) Knee effusion: Code(s): M25.469 - Effusion, unspecified knee Status: Acute Assessment and Plan: Traumatic, post-fall Post-tap. Seemed hemorrhagic will consult orthopedic surgery Orthopedic surgery: Patient has an arthritic right knee.? I believe he probably contused did when he fell.? He has degenerative changes.? I will see him as an outpatient after his other symptoms have resolved.? If the knee still hurts could consider an injection.? He is mainly complaining of left rib pain at this point.? (4) Insulin dependent type 2 diabetes mellitus: Code(s): E11.9 - Type 2 diabetes mellitus without complications; Z79.4 - termite helper (current) use of insulin Status: Acute Assessment and Plan: Insulin, Basal+correctional (5) Obstructive sleep apnea on CPAP: Code(s): G47.33 - Obstructive sleep apnea (adult) (pediatric) Status: Acute Assessment and Plan: nightly CPAP PRN (6) Hypertension: Code(s): I10 - Essential (primary) hypertension Status: Acute (7) Atrial fibrillation: Code(s): I48.91 - Unspecified atrial fibrillation Status: Acute Assessment and Plan: on Eliquis (8) Chronic anticoagulation: Code(s): Z79.01 - termite helper (current) use of anticoagulants Status: Acute Assessment and Plan: Eliquis due to A-fiib (9) Congestive heart failure: Code(s): I50.9 - Heart failure, unspecified Status: Acute Assessment and Plan: Elevated BNP IV Lasix; Cardiology consulted (10) Physical deconditioning: Code(s): R53.81 - Other malaise Status: Acute Assessment and Plan: PT/OT eval and Rx (11) Chest pain: Code(s): R07.9 - Chest pain, unspecified Status: Acute Assessment and Plan: Will provide analgesia; PRN Plan The patient presented to the emergency department via EMS from home for evaluation of left-sided knee pain after a fall on Wednesday as detailed in HPI. Labs, imaging, EKG, and all reports were personally reviewed. Multiple CTs and imaging were taken and did not show any acute fractures. He has reproducible tenderness to palpation over the left anterior chest wall which is likely related to the fall. Right knee is swollen due to an effusion from the fall as well. Analgesics available as needed. He was encouraged to elevate that right knee. Cooling pad ordered. In addition to pain from the falls, he has had congestion and cough with generalized malaise and he has evidence of pneumonia thus he has been started on azithromycin and ceftriaxone. Incidentally his troponin is elevated. Again, his chest pain is likely musculoskeletal in etiology it is unlikely related to acute coronary syndrome. Given his cardiac history, troponin will be trended to peak. He is clinically compensated with regards to a CHF standpoint and we will avoid over-hydration. Monitor volume status closely. He is in chronic atrial fibrillation is rate controlled. Continue apixaban for stroke prophylaxis. Continue basal insulin. Initiate sliding scale insulin, Accu-Cheks, and hypoglycemic protocol. Check hemogl
[2023-09-10 16:22] LABS: Glucose Point of Care 139 mg/dl (65-105)
[2023-09-10] MEDS: KETOROLAC 15 MG/ML VIAL (*BKC) IV PUSH (17:50)
[2023-09-10] MEDS: DOCUSATE SODIUM 100 MG CAPSULE PO (20:33)
[2023-09-10 20:38] LABS: Glucose Point of Care 150 mg/dl (65-105)
[2023-09-11] VITALS (16 sets, daily range): BP systolic 107–131; BP diastolic 64–77; PULSE 69–91; RESP 16–18; TEMP 36.4–37.1; O2SAT 93–97
[2023-09-11 04:09] LABS: Basophils Percent Auto 0.5 % (0.2-1.2); Eosinophils Absolute Auto 0.2 K/mm3 (0-0.3); Eosinophils Percent Auto 2.3 % (0-4.4); Hemoglobin 11.8 g/dL (14.0-18.0); Immature Granulocyte Absolute 0.04 K/mm3 (0.00-0.031); Immature Granulocyte Percent A 0.5 % (0-0.5); Immature Platelet Fraction Pct 7.1 % (0.9-11.2); Lymphocytes Absolute Auto 1.54 K/mm3 (0.9-3.2); Lymphocytes Percent Auto 18.8 % (18.3-44.2); Mean Corpuscular HGB Conc 31.9 g/dl (32-36); Mean Corpuscular Volume 97.1 fl (80-100); Monocytes Absolute Auto 0.8 K/mm3 (0.1-0.6); Monocytes Percent Auto 9.7 % (2.6-8.5); Neutrophils Absolute Auto 5.6 K/mm3 (1.3-6.7); Neutrophils Percent Auto 68.2 % (45.5-73.1); Platelet Count Result 128 k/mm3 (150-375); Red Blood Count 3.81 M/mm3 (4.6-6.20); Red Cell Distribution Width 14.8 % (11.5-14.5); White Blood Count 8.2 K/mm3 (4.5-10.0)
[2023-09-11 04:17] LABS: Alanine Aminotransferase 26 U/L (6-50); Albumin Level 3.3 g/dL (3.5-5.1); Alkaline Phosphatase 82 U/L (38-126); Anion Gap 7 mmol/L (8-16); Aspartate Amino Transferase 44 U/L (17-59); Bilirubin,Total 0.9 mg/dL (0.2-1.3); Blood Urea Nitrogen 53 mg/dL (9-20); Calcium 8.9 mg/dL (8.4-10.2); Carbon Dioxide 27 mmol/L (22-30); Chloride 102 mmol/L (98-107); Estimated CRCL calculation 35 ml/min; Estimated Glomerular Filt Rate 36; Glucose 131 mg/dL (65-110); Potassium 3.6 mmol/L (3.4-5.0); Sodium 136 mmol/L (137-145)
[2023-09-11 08:20] LABS: Glucose Point of Care 163 mg/dl (65-105)
[2023-09-11] MEDS: ASCORBIC ACID 500 MG TABLET 1000 MG PO ×2 (09:19→17:11)
[2023-09-11] MEDS: lisinopriL 5 MG TABLET PO (09:19)
[2023-09-11] MEDS: allopurinoL 300 MG TABLET PO ×2 (09:19→17:13)
[2023-09-11] MEDS: oxyBUTYnin CHLORIDE XL 5 MG TAB.ER.24 10 MG PO (09:19)
[2023-09-11] MEDS: POTASSIUM CHLORIDE 10 MEQ ER TABLET PO ×2 (09:19→17:12)
[2023-09-11] MEDS: OMEGA 3 POLYUNSAT FATTY ACIDS 1 GM CAP PO ×2 (09:19→17:12)
[2023-09-11] MEDS: APIXABAN 5 MG TABLET PO ×2 (09:19→20:43)
[2023-09-11] MEDS: CHOLECALCIFEROL 1,000 UNITS TABLET 1000 UNITS PO ×2 (09:19→17:11)
[2023-09-11] MEDS: GABAPENTIN 300 MG CAPSULE 600 MG PO ×3 (09:19→17:12)
[2023-09-11] MEDS: PANTOPRAZOLE 40 MG TABLET PO ×2 (09:19→20:43)
[2023-09-11] MEDS: ASPIRIN 81 MG ENTERIC TABLET PO (09:20)
[2023-09-11] MEDS: ATORVASTATIN 20 MG TABLET PO (09:20)
[2023-09-11] MEDS: FUROSEMIDE INJ 40 MG/4 ML VIAL 20 MG IV PUSH (09:20)
[2023-09-11] MEDS: INSULIN GLARGINE (*BKC) 100 UNITS/ML 10 UNITS SUB-Q ×2 (09:20→17:13)
[2023-09-11] MEDS: polyethylene glycoL 3350 17 GM POWD.PACK PO (09:45)
[2023-09-11 12:01] LABS: Glucose Point of Care 185 mg/dl (65-105)
[2023-09-11] MEDS: AZITHROMYCIN 500 MG/NS 250 ML 500 MG/250 ML BAG 250 MG IVPB (12:47)
[2023-09-11 16:59] LABS: Glucose Point of Care 139 mg/dl (65-105)
--- NOTE | 2023-09-11 18:07 | PM.IMPN ---
Progress Note: A&P Assessment and Plan (1) Pneumonia: Code(s): J18.9 - Pneumonia, unspecified organism Status: Acute Assessment and Plan: Acute; CAP Azithromycin, Ceftriaxone (2) Elevated troponin: Code(s): R79.89 - Other specified abnormal findings of blood chemistry Status: Acute Assessment and Plan: maybe 2/2 underlying CAD or stress of acute illness Will consult Cardiology Per Cardiology: Troponin levels are 0.049, 0.058, 0.058, and 0.065.? Mildly elevated and flat.? This may represent direct cardiac injury as a result of recent chest trauma with his fall.? This does not represent ACS/acute plaque rupture.? His chest pain is atypical and clearly related to recent injury.? Will order echo, but aside from this no further cardiac workup indicated or recommended. (3) Knee effusion: Code(s): M25.469 - Effusion, unspecified knee Status: Acute Assessment and Plan: Traumatic, post-fall Post-tap. Seemed hemorrhagic will consult orthopedic surgery Orthopedic surgery: Patient has an arthritic right knee.? I believe he probably contused did when he fell.? He has degenerative changes.? I will see him as an outpatient after his other symptoms have resolved.? If the knee still hurts could consider an injection.? He is mainly complaining of left rib pain at this point.? (4) Insulin dependent type 2 diabetes mellitus: Code(s): E11.9 - Type 2 diabetes mellitus without complications; Z79.4 - extermination inspector (current) use of insulin Status: Acute Assessment and Plan: Insulin, Basal+correctional (5) Obstructive sleep apnea on CPAP: Code(s): G47.33 - Obstructive sleep apnea (adult) (pediatric) Status: Acute Assessment and Plan: nightly CPAP PRN (6) Hypertension: Code(s): I10 - Essential (primary) hypertension Status: Acute (7) Atrial fibrillation: Code(s): I48.91 - Unspecified atrial fibrillation Status: Acute Assessment and Plan: on Eliquis (8) Chronic anticoagulation: Code(s): Z79.01 - extermination inspector (current) use of anticoagulants Status: Acute Assessment and Plan: Eliquis due to A-fiib (9) Congestive heart failure: Code(s): I50.9 - Heart failure, unspecified Status: Acute Assessment and Plan: Elevated BNP IV Lasix; Cardiology consulted (10) Physical deconditioning: Code(s): R53.81 - Other malaise Status: Acute Assessment and Plan: PT/OT eval and Rx (11) Chest pain: Code(s): R07.9 - Chest pain, unspecified Status: Acute Assessment and Plan: Will provide analgesia; PRN Plan The patient presented to the emergency department via EMS from home for evaluation of left-sided knee pain after a fall on Wednesday as detailed in HPI. Labs, imaging, EKG, and all reports were personally reviewed. Multiple CTs and imaging were taken and did not show any acute fractures. He has reproducible tenderness to palpation over the left anterior chest wall which is likely related to the fall. Right knee is swollen due to an effusion from the fall as well. Analgesics available as needed. He was encouraged to elevate that right knee. Cooling pad ordered. In addition to pain from the falls, he has had congestion and cough with generalized malaise and he has evidence of pneumonia thus he has been started on azithromycin and ceftriaxone. Incidentally his troponin is elevated. Again, his chest pain is likely musculoskeletal in etiology it is unlikely related to acute coronary syndrome. Given his cardiac history, troponin trended and now back to baseline. 2D echo was done which showed preserved left ventricular function with EF 55-60%. Cardiology evaluated patient and to not recommend any further cardiac work up. He is clinically compensated with regards to a CHF standpoint and we will avoid over-hydration. Monitor volume status closely. He is in chronic atrial fibrillati
[2023-09-11] MEDS: SODIUM CHLORIDE 0.9% IV 1,000 ML 100 ML IV CONT (19:25)
--- NOTE | 2023-09-11 19:50 | PC.NURSE ---
This patient, Bigg Gonzalez, was transferred to [facility] on 09/11/23 at 1614. Personal belongings sent with patient. Report given to Simona. Appropriate documentation sent with patient.
[2023-09-11 20:10] LABS: Pneumococcal Antigen Urine Not Detected (Not Detected)
[2023-09-11 21:04] LABS: Glucose Point of Care 168 mg/dl (65-105)
[2023-09-12] VITALS (12 sets, daily range): BP systolic 123–141; BP diastolic 66–72; PULSE 7–84; RESP 18–20; TEMP 36.5–36.7; O2SAT 95–100
[2023-09-12 05:53] LABS: Basophils Percent Auto 0.3 % (0.2-1.2); Eosinophils Absolute Auto 0.2 K/mm3 (0-0.3); Eosinophils Percent Auto 2.8 % (0-4.4); Hematocrit 36.5 % (42.0-52.0); Hemoglobin 11.6 g/dL (14.0-18.0); Immature Granulocyte Absolute 0.05 K/mm3 (0.00-0.031); Immature Granulocyte Percent A 0.7 % (0-0.5); Lymphocytes Absolute Auto 1.17 K/mm3 (0.9-3.2); Lymphocytes Percent Auto 15.4 % (18.3-44.2); Mean Corpuscular HGB Conc 31.8 g/dl (32-36); Mean Corpuscular Hemoglobin 31.2 pg (26-34); Mean Corpuscular Volume 98.1 fl (80-100); Mean Platelet Volume 11.7 fl (7.4-10.4); Monocytes Absolute Auto 0.8 K/mm3 (0.1-0.6); Monocytes Percent Auto 10.1 % (2.6-8.5); Neutrophils Absolute Auto 5.4 K/mm3 (1.3-6.7); Neutrophils Percent Auto 70.7 % (45.5-73.1); Platelet Count Result 150 k/mm3 (150-375); Red Blood Count 3.72 M/mm3 (4.6-6.20); Red Cell Distribution Width 14.6 % (11.5-14.5); White Blood Count 7.6 K/mm3 (4.5-10.0)
[2023-09-12 06:11] LABS: Alanine Aminotransferase 31 U/L (6-50); Albumin Level 3.4 g/dL (3.5-5.1); Alkaline Phosphatase 91 U/L (38-126); Anion Gap 10 mmol/L (8-16); Aspartate Amino Transferase 48 U/L (17-59); Bilirubin,Total 0.8 mg/dL (0.2-1.3); Blood Urea Nitrogen 49 mg/dL (9-20); Carbon Dioxide 23 mmol/L (22-30); Chloride 102 mmol/L (98-107); Estimated CRCL calculation 45 ml/min; Estimated Glomerular Filt Rate 48; Glucose 143 mg/dL (65-110); Phosphorus 3.8 mg/dL (2.5-4.5); Potassium 3.6 mmol/L (3.4-5.0); Sodium 135 mmol/L (137-145)
[2023-09-12 06:16] LABS: Legionella pneumophila Ag Ur Not Detected (Not Detected)
[2023-09-12 08:35] LABS: Glucose Point of Care 133 mg/dl (65-105)
[2023-09-12] MEDS: allopurinoL 300 MG TABLET PO ×2 (08:44→17:35)
[2023-09-12] MEDS: ASCORBIC ACID 500 MG TABLET 1000 MG PO ×2 (08:44→17:36)
[2023-09-12] MEDS: APIXABAN 5 MG TABLET PO ×2 (08:44→20:28)
[2023-09-12] MEDS: ATORVASTATIN 20 MG TABLET PO (08:45)
[2023-09-12] MEDS: GABAPENTIN 300 MG CAPSULE 600 MG PO ×3 (08:45→17:35)
[2023-09-12] MEDS: CHOLECALCIFEROL 1,000 UNITS TABLET 1000 UNITS PO ×2 (08:45→17:35)
[2023-09-12] MEDS: ASPIRIN 81 MG ENTERIC TABLET PO (08:45)
[2023-09-12] MEDS: PANTOPRAZOLE 40 MG TABLET PO ×2 (08:46→20:28)
[2023-09-12] MEDS: OMEGA 3 POLYUNSAT FATTY ACIDS 1 GM CAP PO ×2 (08:46→17:36)
[2023-09-12] MEDS: lisinopriL 5 MG TABLET PO (08:46)
[2023-09-12] MEDS: oxyBUTYnin CHLORIDE XL 5 MG TAB.ER.24 10 MG PO (08:46)
[2023-09-12] MEDS: POTASSIUM CHLORIDE 10 MEQ ER TABLET PO ×2 (08:47→17:36)
[2023-09-12] MEDS: INSULIN GLARGINE (*BKC) 100 UNITS/ML 10 UNITS SUB-Q ×2 (08:49→17:37)
[2023-09-12] MEDS: FUROSEMIDE 20 MG TABLET PO ×2 (10:21→17:36)
[2023-09-12 12:05] LABS: Glucose Point of Care 194 mg/dl (65-105)
[2023-09-12] MEDS: AZITHROMYCIN 500 MG/NS 250 ML 500 MG/250 ML BAG 250 MG IVPB (12:18)
[2023-09-12 12:21] LABS: Magnesium 2.3 mg/dL (1.6-2.3)
--- NOTE | 2023-09-12 16:13 | PM.IMPN ---
Progress Note: A&P Assessment and Plan (1) Pneumonia: Code(s): J18.9 - Pneumonia, unspecified organism Status: Acute Assessment and Plan: Acute; CAP Azithromycin, Ceftriaxone Leukocytosis resolved (2) Elevated troponin: Code(s): R79.89 - Other specified abnormal findings of blood chemistry Status: Acute Assessment and Plan: maybe 2/2 underlying CAD or stress of acute illness Will consult Cardiology Per Cardiology: Troponin levels are 0.049, 0.058, 0.058, and 0.065.? Mildly elevated and flat.? This may represent direct cardiac injury as a result of recent chest trauma with his fall.? This does not represent ACS/acute plaque rupture.? His chest pain is atypical and clearly related to recent injury.? Will order echo, but aside from this no further cardiac workup indicated or recommended. (3) Knee effusion: Code(s): M25.469 - Effusion, unspecified knee Status: Acute Assessment and Plan: Traumatic, post-fall Post-tap. Seemed hemorrhagic will consult orthopedic surgery Orthopedic surgery: Patient has an arthritic right knee.? I believe he probably contused did when he fell.? He has degenerative changes.? I will see him as an outpatient after his other symptoms have resolved.? If the knee still hurts could consider an injection.? He is mainly complaining of left rib pain at this point.? (4) Insulin dependent type 2 diabetes mellitus: Code(s): E11.9 - Type 2 diabetes mellitus without complications; Z79.4 - rodent exterminator (current) use of insulin Status: Acute Assessment and Plan: Insulin, Basal+correctional (5) Obstructive sleep apnea on CPAP: Code(s): G47.33 - Obstructive sleep apnea (adult) (pediatric) Status: Acute Assessment and Plan: nightly CPAP PRN (6) Hypertension: Code(s): I10 - Essential (primary) hypertension Status: Acute (7) Atrial fibrillation: Code(s): I48.91 - Unspecified atrial fibrillation Status: Acute Assessment and Plan: on Eliquis (8) Chronic anticoagulation: Code(s): Z79.01 - rodent exterminator (current) use of anticoagulants Status: Acute Assessment and Plan: Eliquis due to A-fiib (9) Congestive heart failure: Code(s): I50.9 - Heart failure, unspecified Status: Acute Assessment and Plan: Elevated BNP IV Lasix; Cardiology consulted (10) Physical deconditioning: Code(s): R53.81 - Other malaise Status: Acute Assessment and Plan: PT/OT eval and Rx (11) Chest pain: Code(s): R07.9 - Chest pain, unspecified Status: Acute Assessment and Plan: Will provide analgesia; PRN Plan The patient presented to the emergency department via EMS from home for evaluation of left-sided knee pain after a fall on Wednesday as detailed in HPI. Labs, imaging, EKG, and all reports were personally reviewed. Multiple CTs and imaging were taken and did not show any acute fractures. He has reproducible tenderness to palpation over the left anterior chest wall which is likely related to the fall. Right knee is swollen due to an effusion from the fall as well. Analgesics available as needed. He was encouraged to elevate that right knee. Cooling pad ordered. In addition to pain from the falls, he has had congestion and cough with generalized malaise and he has evidence of pneumonia thus he has been started on azithromycin and ceftriaxone. Incidentally his troponin is elevated. Again, his chest pain is likely musculoskeletal in etiology it is unlikely related to acute coronary syndrome. Given his cardiac history, troponin trended and now back to baseline. 2D echo was done which showed preserved left ventricular function with EF 55-60%. Cardiology evaluated patient and to not recommend any further cardiac work up. He is clinically compensated with regards to a CHF standpoint and we will avoid over-hydration. Monitor volume status closely. He is in
[2023-09-12 17:30] LABS: Glucose Point of Care 135 mg/dl (65-105)
[2023-09-12 21:24] LABS: Glucose Point of Care 156 mg/dl (65-105)
[2023-09-13] VITALS: PULSE 69
[2023-09-13 04:00] VITALS: PULSE 85
[2023-09-13 04:51] VITALS: BP 144/83; PULSE 75; RESP 20; TEMP 36.7; O2SAT 97
[2023-09-13 06:13] LABS: Basophils Percent Auto 0.4 % (0.2-1.2); Eosinophils Absolute Auto 0.2 K/mm3 (0-0.3); Eosinophils Percent Auto 1.7 % (0-4.4); Hematocrit 40.2 % (42.0-52.0); Hemoglobin 13.3 g/dL (14.0-18.0); Immature Granulocyte Absolute 0.05 K/mm3 (0.00-0.031); Immature Granulocyte Percent A 0.5 % (0-0.5); Lymphocytes Absolute Auto 0.99 K/mm3 (0.9-3.2); Lymphocytes Percent Auto 9.7 % (18.3-44.2); Mean Corpuscular HGB Conc 33.1 g/dl (32-36); Mean Corpuscular Hemoglobin 31.9 pg (26-34); Mean Corpuscular Volume 96.4 fl (80-100); Mean Platelet Volume 11.6 fl (7.4-10.4); Monocytes Percent Auto 9.9 % (2.6-8.5); Neutrophils Percent Auto 77.8 % (45.5-73.1); Platelet Count Result 172 k/mm3 (150-375); Red Blood Count 4.17 M/mm3 (4.6-6.20); Red Cell Distribution Width 14.5 % (11.5-14.5); White Blood Count 10.2 K/mm3 (4.5-10.0)
[2023-09-13 06:31] LABS: Alanine Aminotransferase 37 U/L (6-50); Albumin Level 3.6 g/dL (3.5-5.1); Alkaline Phosphatase 109 U/L (38-126); Anion Gap 9 mmol/L (8-16); Aspartate Amino Transferase 46 U/L (17-59); Bilirubin,Total 0.8 mg/dL (0.2-1.3); Blood Urea Nitrogen 42 mg/dL (9-20); Calcium 9.3 mg/dL (8.4-10.2); Carbon Dioxide 22 mmol/L (22-30); Chloride 104 mmol/L (98-107); Estimated CRCL calculation 51 ml/min; Estimated Glomerular Filt Rate 58; Glucose 167 mg/dL (65-110); Potassium 3.7 mmol/L (3.4-5.0); Sodium 135 mmol/L (137-145)
[2023-09-13 08:00] VITALS: BP 138/85; PULSE 62; PULSE 85; RESP 17; TEMP 36.6; O2SAT 96
[2023-09-13 08:25] LABS: Glucose Point of Care 157 mg/dl (65-105)
[2023-09-13] MEDS: ASCORBIC ACID 500 MG TABLET 1000 MG PO ×2 (10:32→17:13)
[2023-09-13] MEDS: lisinopriL 5 MG TABLET PO (10:32)
[2023-09-13] MEDS: ASPIRIN 81 MG ENTERIC TABLET PO (10:32)
[2023-09-13] MEDS: ATORVASTATIN 20 MG TABLET PO (10:32)
[2023-09-13] MEDS: oxyBUTYnin CHLORIDE XL 5 MG TAB.ER.24 10 MG PO (10:33)
[2023-09-13] MEDS: OMEGA 3 POLYUNSAT FATTY ACIDS 1 GM CAP PO ×2 (10:33→17:13)
[2023-09-13] MEDS: GABAPENTIN 300 MG CAPSULE 600 MG PO ×3 (10:33→17:13)
[2023-09-13] MEDS: CHOLECALCIFEROL 1,000 UNITS TABLET 1000 UNITS PO ×2 (10:34→17:13)
[2023-09-13] MEDS: allopurinoL 300 MG TABLET PO ×2 (10:34→17:13)
[2023-09-13] MEDS: APIXABAN 5 MG TABLET PO (10:34)
[2023-09-13] MEDS: FUROSEMIDE 20 MG TABLET PO ×2 (10:34→17:13)
[2023-09-13] MEDS: POTASSIUM CHLORIDE 10 MEQ ER TABLET PO ×2 (10:34→17:13)
[2023-09-13] MEDS: INSULIN GLARGINE (*BKC) 100 UNITS/ML 10 UNITS SUB-Q ×2 (10:35→17:18)
[2023-09-13] MEDS: PANTOPRAZOLE 40 MG TABLET PO (10:38)
[2023-09-13 11:40] LABS: Mycoplasma IgM Antibody Titer 11 U/mL (<770)
[2023-09-13 11:55] LABS: Glucose Point of Care 167 mg/dl (65-105)
[2023-09-13 12:00] VITALS: PULSE 90
--- NOTE | 2023-09-13 15:32 | PM.DS ---
DS: Admitting Diagnosis Discharge Date 09/13/2023: Admitting Diagnosis Community-acquired pneumonia Elevated troponins DS: Discharge Diagnosis Discharge Diagnosis (1) Osteoarthritis of right knee: Code(s): M17.11 - Unilateral primary osteoarthritis, right knee Status: Acute (2) Chest pain: Code(s): R07.9 - Chest pain, unspecified Status: Acute (3) Physical deconditioning: Code(s): R53.81 - Other malaise Status: Acute (4) Pacemaker: Code(s): Z95.0 - Presence of cardiac pacemaker Status: Acute (5) Elevated troponin: Code(s): R79.89 - Other specified abnormal findings of blood chemistry Status: Acute (6) Congestive heart failure: Code(s): I50.9 - Heart failure, unspecified Status: Acute (7) Insulin dependent type 2 diabetes mellitus: Code(s): E11.9 - Type 2 diabetes mellitus without complications; Z79.4 - intermediate manager (current) use of insulin Status: Acute (8) Obstructive sleep apnea on CPAP: Code(s): G47.33 - Obstructive sleep apnea (adult) (pediatric) Status: Acute (9) Hypertension: Code(s): I10 - Essential (primary) hypertension Status: Acute (10) Chronic anticoagulation: Code(s): Z79.01 - longterm (current) use of anticoagulants Status: Acute (11) Atrial fibrillation: Code(s): I48.91 - Unspecified atrial fibrillation Status: Acute (12) Head injury: Code(s): S09.90XA - Unspecified injury of head, initial encounter Status: Acute (13) Pneumonia: Code(s): J18.9 - Pneumonia, unspecified organism Status: Acute (14) Acute chest wall pain: Code(s): R07.89 - Other chest pain Status: Acute (15) Weakness: Code(s): R53.1 - Weakness Status: Acute DS: Summary Hospital Course Reason for hospitalization: Patient admitted with left chest and knee pain after fall Hospital Course: H&P: HPI History of Present Illness Date/Time: 09/08/23? 14:30 Chief Complaint: Left chest and knee pain after fall. Narrative: This is a very pleasant 83-year-old gentleman with paroxysmal atrial fibrillation on chronic anticoagulation, coronary artery disease with history of coronary artery bypass graft, valvular heart disease status post valve replacement, cardiomyopathy status post ICD insertion, hypertension, hyperlipidemia, and type 2 diabetes mellitus who presented to the emergency department via EMS from home for evaluation of left chest and knee pain after a fall. The patient provides the following history. On Wednesday he went outside to get something out of the car when he slipped on the ice and fell to the ground, striking his right hip and knee before rolling over and hitting the left side of his chest and then his head on the ground. He was able to get himself up into the house though he has had increasing pain and stiffness since that time. His knees hurt, right much worse than the left, and he has significant swelling in that knee. He also has left-sided chest pain and is barely even able to sit himself up as it makes that pain worse. His oral intake has not been good since yesterday. Overall he feels weak and unwell.? Family members report that he seems to be a bit lethargic. While I was in the room he was noted to have a bit of a cough. With further questioning he has had a cough productive of yellowish phlegm and some congestion. He denies loss of consciousness in the fall, fever, chills, sweats, sore throat, exertional chest pain, pleuritic pain, vomiting, diarrhea, and dysuria. He was afebrile on arrival to the emergency department. Labs were significant for WBC count of 13.5, platelet 113, troponin 0.049, proBNP 3190. He tested negative for influenza, RSV, and COVID. Brain and cervical spine CT showed no acute findings. Chest and rib x-rays showed no fracture. CT of this chest, abdomen, and pelvis showed nothing chronic but did note dependent consolidatio
[2023-09-13 16:00] VITALS: BP 136/81; PULSE 84; PULSE 89; RESP 17; TEMP 36.4; O2SAT 95
[2023-09-13 16:40] LABS: SARS-CoV-2 RNA PCR Negative (Negative)
[2023-09-13 17:04] LABS: Glucose Point of Care 132 mg/dl (65-105)
[2023-09-13] MEDS: ACETAMINOPHEN 325 MG TABLET 650 MG PO (17:22)
== END 2023-09-13 17:45 | DRG 195 ==
LOC: ANHED 12:11 → ANHIMU 17:14 → ANH2MED 09-11 15:57
PROVIDERS: Internal Medicine; Physician Assistant; Admitting Provider Family Medicine; Emergency Provider Emergency Medicine; Visit Provider Family Medicine
DX: J18.9 Pneumonia, unspecified organism (principal); I48.0 Paroxysmal atrial fibrillation; I11.0 Hypertensive heart disease with heart failure; I50.9 Heart failure, unspecified; I25.10 Atherosclerotic heart disease of native coronary artery without angina pectoris; E78.5 Hyperlipidemia, unspecified; E11.9 Type 2 diabetes mellitus without complications; M25.461 Effusion, right knee; M17.11 Unilateral primary osteoarthritis, right knee; R07.89 Other chest pain; S29.9XXA Unspecified injury of thorax, initial encounter; W00.0XXA Fall on same level due to ice and snow, initial encounter; G47.33 Obstructive sleep apnea (adult) (pediatric); Z20.822 Contact with and (suspected) exposure to COVID-19; Z11.52 Encounter for screening for COVID-19; Z79.01 Long term (current) use of anticoagulants; Z79.82 Long term (current) use of aspirin; Z95.1 Presence of aortocoronary bypass graft; Z79.4 Long term (current) use of insulin; Z95.2 Presence of prosthetic heart valve; Z95.0 Presence of cardiac pacemaker
CPT/HCPCS: 36415; 70450; 71101; 71260; 72125; 72129; 72132; 73562; 74177; 80048; 80053; 81001; 82948; 83036; 83690; 83735; 83880; 84100; 84484; 85025; 85027; 85055; 85610; 85730; 86738; 87040; 87449; 87635; 87637; 87899; 93005; 96365; 96367; 96375; 96376; 97110; 97161; 97165; 97530; 97535; 99285; A9270; C8929; G0378; J0456; J0696; J1815; J1885; J1940; J7030; Q9957; Q9967

== ENCOUNTER 2024-10-06 11:06 | Emergency (ER) | payer MEDICARE, SELFPAY ==
--- NOTE | ~2024-10-06 | XR_ITS ---
EXAMINATION: XR pelvis 1-2V DATE: 10/06/2024 12:04 INDICATION: Suprapubic pain post fall 4 weeks prior. TECHNIQUE: An anteroposterior view of the pelvis was obtained. COMPARISON: Right hip radiographs dated 07/05/[address] dated 09/08/2023 FINDINGS: Bone alignment is normal. Then curvilinear sclerosis projecting over the medial left inferior pubic r amus which appears unchanged from the prior radiograph and corresponds to a chronic buckle fracture o n the intervening CT. No acute fractures identified. Moderate osteitis pubis. Polyarticular osteoarth ritis which is mild to moderate severity at the bilateral hip and sacroiliac joints. Penile prosthesi s with reservoir in the right pelvis. Moderate to severe lower lumbar facet osteoarthritis. IMPRESSION: 1. 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 No acute osse ous abnormality. Reviewed, dictated and finalized at location A. ANALYST IMPRESSION: 1. Degenerative skeletal change in the pelvis and lower lumbar spine as detaile d above. No acute osseous abnormality.
[2024-10-06 11:25] VITALS: BP 142/63; PULSE 90; RESP 18; TEMP 36.3; O2SAT 98
--- NOTE | 2024-10-06 11:28 | ED.GENADULT ---
HPI - General Adult General Chief complaint: Extremity Problem,Nontraumatic Stated complaint: Xray Time Seen by Provider: 10/06/24 11:29 Source: patient Mode of arrival: ambulatory Limitations: no limitations History of Present Illness HPI narrative: 84 yo M presents with c/o pain to pubic, groin area for approx. 4 wks. Pt slipped on ice and landed on his butt and then land on his back for 1 hr before neighbors saw him outside and called ambulance. Pt states after slipping and falling he was not able to get up on his own. did not hit his head, no LOC. ambulance came and helped him up. He had no pain at that time so he refused transport to hospital. Pain started next day when getting up out of bed. Since then has had pain to pubic/groin when walking. Saw his urologist because he thought it might be a urinary or kidney issue and was cleared by his urlogist. Called PCP office for appt and was told if you hurt then go to an for an xray . Pt ambulatory with steady gait. all systems reviewed and negative except as noted above. Related Data Home Medications ?Medication ?Instructions ?Recorded ?Confirmed ?Last Taken ?Type allopurinol 300 mg tablet 300 mg PO BID 09/08/23 09/16/23 Unknown History apixaban 5 mg tablet (Eliquis) 5 mg PO BID 09/08/23 09/16/23 Unknown History ascorbate calcium (vitamin C) 500 1,000 mg PO BID 09/08/23 09/16/23 Unknown History mg capsule aspirin 81 mg capsule 81 mg PO DAILY 09/08/23 09/16/23 Unknown History atorvastatin 20 mg tablet 20 mg PO DAILY 09/08/23 09/16/23 Unknown History cholecalciferol (vitamin D3) 25 1,000 unit PO BID 09/08/23 09/16/23 Unknown History mcg (1,000 unit) tablet (Vitamin D3) furosemide 20 mg tablet 20 mg PO BID 09/08/23 09/16/23 Unknown History gabapentin 600 mg tablet 600 mg PO TID 09/08/23 09/16/23 Unknown History glipizide 5 mg tablet 5 mg PO BID 09/08/23 09/16/23 Unknown History insulin glargine 100 unit/mL (3 10 unit subcut BID 09/08/23 09/16/23 Unknown History mL) subcutaneous pen (Lantus Solostar U-100 Insulin) metformin 500 mg tablet 500 mg PO BID 09/08/23 09/16/23 Unknown History omega 3-wli-cmm-fish oil 1,200 mg 1 cap PO BID 09/08/23 09/16/23 Unknown History (144 mg-216 mg) capsule (Fish Oil) omeprazole 40 mg capsule,delayed 40 mg PO BID 09/08/23 09/16/23 Unknown History release oxybutynin chloride 10 mg 10 mg PO DAILY 09/08/23 09/16/23 Unknown History tablet,extended release 24 hr pen needle, diabetic 31 gauge x 09/08/23 09/16/23 Unknown History 3/16 (BD Ultra-Fine Mini Pen Needle) potassium chloride 10 mEq 10 meq PO BID 09/08/23 09/16/23 Unknown History tablet,extended release(part/cryst) sitagliptin phosphate 100 mg 100 mg PO DAILY 09/08/23 09/16/23 Unknown History tablet (Januvia) Allergies Allergy/AdvReac Type Severity Reaction Status Date / Time No Known Allergies Allergy Verified 10/06/24 11:10 Review of Systems Review of Systems: CONSTITUTIONAL: Denies fever, chills, or sweats. EYES: Denies visual changes, redness, or discharge. ENT: Denies rhinorrhea, congestion, sore throat, or otalgia. CARDIOVASCULAR: Denies chest pain, palpitations, or edema. RESPIRATORY: Denies cough or dyspnea. GASTROINTESTINAL: Denies abdominal pain, nausea, vomiting, or diarrhea. GENITOURINARY: Denies dysuria or hematuria. SKIN: Denies rash or itching. MUSCULOSKELETAL: Denies back pain, joint pain, or myalgia. Reports pubic/groin pain. NEUROLOGIC: Denies headache, numbness, or weakness. PSYCHIATRIC: Denies anxiety or depression. All other systems reviewed are negative, except as documented in HPI. [facility] Past Medical History Medical History Arthritis Atrial fibrillation Chronic anticoagulation Congestive heart failure Coronary artery disease Hypertension Insulin dependent type 2 diabetes mellitus Obstructive sleep apnea on CPAP Surgical History Surgical History History of ankle surgery History of cardiac defibrillator placement History of coronary artery bypass graft History of heart valve replacement Family History Family History Other Breast cancer Social History Social History Social History: Surrogate medical decision maker: Tennille Gonzalez, spouse. Code status: Full code. Smoking status: Never smoker Alcohol intake: never Substance use: never Do You Feel Safe in your Home?: Yes Lack of Transportation: No Lack of Food: Never True Current Housing: I Have Housing Concerned About Future Housing: No Difficulty Paying Gas/Electric Bills: No Difficulty Paying for Meds: No Currently Unemployed: No Education: Associate Degree Difficulty w/ Childcare or Family Care: No Additional living arrangements comments: Lives with spouse in [place]. Additional occupation/education comments: Continues to work. 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 Spiritual care concerns: No Comments At time of signature, agree with nursing past medical, surgical, social and family history. There is no relevant family history pertinent to the presenting complaint. Exam Narrative: GENERAL: This is a well-nourished, well-developed patient, in no apparent distress. HEAD: normocephalic, atraumatic. EYES: PERRL. Sclera clear/white. Vision is grossly intact. EARS: External ears normal NOSE: External nose normal NECK: Neck supple, non-tender without lymphadenopathy, masses or thyromegaly. CARDIOVASCULAR: Regular rate and rhythm without murmurs, gallops, or rubs. RESPIRATORY: Clear to auscultation. Breath sounds equal bilaterally. No wheezes, rales, or rhonchi. SKIN: warm, Dry, intact with no suspicious lesions or rash, good texture and turgor. NEURO: awake, alert, and oriented to person, place and time. There were no obvious focal neurologic abnormalities. EXTREMITIES: No tenderness to bilateral hips. Full range of motion to hips. tenderness to bilateral grion, pubic bone BACK: No midline tenderness or deformity. No tenderness to SI joints. Course Course Level of Care: Express Care Visit Vital Signs Vital signs: Vital Signs Temperature 36.3 C L 10/06/24 11:25 Pulse Rate 90 10/06/24 11:25 Respiratory Rate 18 10/06/24 11:25 Blood Pressure 142/63 H 10/06/24 11:25 Pulse Oximetry 98 10/06/24 11:25 Oxygen Delivery Room Air 10/06/24 11:25 Temperature 36.3 C L 10/06/24 11:25 Pulse Rate 90 10/06/24 11:25 Respiratory Rate 18 10/06/24 11:25 Blood Pressure 142/63 H 10/06/24 11:25 Pulse Oximetry 98 10/06/24 11:25 Oxygen Delivery Room Air 10/06/24 11:25 Reviewed Medical Decision Making MDM Narrative Medical decision making narrative: discussed x-ray results with patient and his . x-ray shows osteitis pubis which could be causining pt's symptoms. REcommend follow up wtih PCP. Will prescribe tylenol. Recommend ice and rest. Please be advised this is a medical document. It is intended for xrqr-[id number] communication. It is written in medical language and may contain unfamiliar abbreviations or verbiage. Medical documents are intended to carry relevant information, facts as evident, and the clinical opinion of the practitioner at the time of the encounter. This report may have been done utilizing a voice recognition system. Attempts have been made to correct errors. However, there may be uncorrected grammatical, spelling, and recognition errors present. The file time of this note does not necessarily represent the time of service. Vital Signs Vital Signs: Vital Signs Temperature 36.3 C L 10/06/24 11:25 Pulse Rate 90 10/06/24 11:25 Respiratory Rate 18 10/06/24 11:25 Blood Pressure 142/63 H 10/06/24 11:25 Pulse Oximetry 98 10/06/24 11:25 Oxygen Delivery Room Air 10/06/24 11:25 Temperature 36.3 C L 10/06/24 11:25 Pulse Rate 90 10/06/24 11:25 Respiratory Rate 18 10/06/24 11:25 Blood Pressure 142/63 H 10/06/24 11:25 Pulse Oximetry 98 10/06/24 11:25 Oxygen Delivery Room Air 10/06/24 11:25 Imaging Data My impression: agree with radiologist Radiologist's impression: EXAMINATION: XR pelvis 1-2V DATE: 10/06/2024 12:04 INDICATION: Suprapubic pain post fall 4 weeks prior. TECHNIQUE: An anteroposterior view of the pelvis was obtained. COMPARISON: Right hip radiographs dated 07/05/[address] dated 09/08/2023 FINDINGS: Bone alignment is normal. Then curvilinear sclerosis projecting over the medial left inferior pubic ramus which appears unchanged from the prior radiograph and corresponds to a chronic buckle fracture on the intervening CT. No acute fractures identified. Moderate osteitis pubis. Polyarticular osteoarthritis which is mild to moderate severity at the bilateral hip and sacroiliac joints. Penile prosthesis with reservoir in the right pelvis. Moderate to severe lower lumbar facet osteoarthritis. IMPRESSION: 1. 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 No acute osseous abnormality. Discharge Plan Discharge Clinical Impression: Osteitis pubis Patient Disposition: Home, Self-Care Condition: Stable Instructions: General Patient Instructions Patient Language: Macedonian Prescriptions: New acetaminophen 325 mg capsule 650 mg PO Q6H PRN (Reason: pain) Qty: 60 0RF No Action metformin 500 mg tablet 500 mg PO BID gabapentin 600 mg tablet 600 mg PO TID atorvastatin 20 mg tablet 20 mg PO DAILY oxybutynin chloride 10 mg tablet extended release 24hr 10 mg PO DAILY omeprazole 40 mg capsule,delayed release(DR/EC) 40 mg PO BID allopurinol 300 mg tablet 300 mg PO BID furosemide 20 mg tablet 20 mg PO BID glipizide 5 mg tablet 5 mg PO BID potassium chloride 10 mEq tablet,ER particles/crystals 10 meq PO BID (DME) pen needle, diabetic [BD Ultra-Fine Mini Pen Needle] 31 gauge x 3/16 needle MISCELLANEOUS Januvia 100 mg tablet 100 mg PO DAILY insulin glargine [Lantus Solostar U-100 Insulin] 100 unit/mL (3 mL) insulin pen 10 unit SUBCUT BID Eliquis 5 mg tablet 5 mg PO BID aspirin 81 mg Capsule 81 mg PO DAILY ascorbate calcium (vitamin C) 500 mg Capsule 1,000 mg PO BID cholecalciferol (vitamin D3) [Vitamin D3] 25 mcg (1,000 unit) Tablet 1,000 unit PO BID omega 1-uvd-zqp-fish oil [Fish Oil] 1,200 (144-216) mg Capsule 1 cap PO BID Follow-up/Referrals: UNKNOWN,DOCTOR [Non-Staff] - Time of Disposition: 12:33
--- OUTSIDE RECORDS SUMMARY | 2024-10-06 11:37 | XMS_ITS | Encounter Summary ---
Author Organization [facility] Address [address] [place] [address] Care Team Providers Care Lab Systems Analyst Name Role Phone Ant Meyer MD Primary Care Provider [phone] Reason for Visit * Reason Comments Clinical Consult Before Scheduling Clinical Consult Before Scheduling Encounter Details Date Type Department Care Team (Late st Contact Info) Description 09/18/2024 Telephone [facility] Primary Care - [address] [facility] [address] [address] Ant Meyer MD [address] [place] [address] Clinical Consult Before Scheduling; Clinical Consult Before Scheduling Social History Tobacco Use Types Packs/Day Years Used Date Smoking Tobacco: Never Smokeless Tobacco: Never Alcohol Use Standard Drinks/Week Comments No 0 (1 standard drink = 0.6 oz pur e alcohol) Financial Resource Strain Answer Date R ecorded How hard is it for you to pa y for the very basics like food, housing, medical care, and heating? Not hard at all 12/29/2021 Food Insecurity Answer Date Recorded In the past 12 months, have you worried that your food would run out before you had money to buy more? Never true 12/29/2021 In the past 12 months, did y ou run out of food and didn't have money to buy more? Never true 12/29/2021 Transportation Needs Answer Date Record ed In the past 12 months, has l ack of transportation kept you from medical appointments or from getting medications? 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 Topic: Symptomatic Care >> Sep 18, 2024 2:11 PM Eneida Sorensen wrote: Caller has new symptoms and is seeking care. Age Range/Symptom: Adult: 18+ - Breathing difficulty, any, OR Shortness of Breath (does not includecongestion) Caller Name: Bigg Gonzalez Callback Number: [phone] Call Notes: Breathing difficulties Transferred to PCN line and Whitney answered call. BALL MOLDER * Telephone Encounter - Padmini Castro - 09/18/2024 2:10 PM CST Copied from [facility] #[id number]. Topic: Symptomatic Care >> Sep 18, 2024 2:08 PM Padmini East wrote: Caller has new symptoms and is seeking care. Age Range/Symptom: Adult: 18+ - Fall, Trauma, Injury - recent Does patient have any of the following other urgent symptoms: Chest pain, heaviness or discomfort -active (having it now) Caller Name: Bigg Gonzalez Callback Number: Telephone Information: Call Notes: Patient fell and is having chest pains, patient hung up. Attempted transfer to PCN line and no answer, message routed to [place]. BALL MOLDER documented in this encounter Plan of Treatment Upcoming Encounters Date Type Department Care Team (Late st Contact Info) Description 10/23/2024 3:30 PM CDT Procedure visit [facility] Heart and Vascular - [address] [facility] [address] [address] [facility] [address] [place] [address] 11/14/2024 11:15 AM CDT Office Visit [facility] Heart and Vascular - [address] [place] [address] Jaime Miner ANP [address] [facility] [address] [place] [address] [place] [address] [facility] [address] [place] [address] 12/05/2024 11:30 AM CDT Office Visit [facility] Neurology [address] [place] [address] [address] [place] [address] [place] [address] [facility] [address] [place] [address] 12/26/2024 11:00 AM CDT Appointment [facility] Blood Flow [address] [place] [address] Johanny Khan APN [address] [facility] [address] [place] [address] 12/26/2024 11:45 AM CDT Office Visit [facility] [address] [facility] [address] [place] [phone] Johanny Khan APN [address] [facility] [address] [place] [address] Jerel Caruso MD [address] [facility] [address] [place] [address] 01/18/2025 1:30 PM CDT Procedure visit [facility] Heart and Vascular - [address] [facility] [address] [address] [facility] [address] [place] [address] documented as of this encounter Visit Diagnoses Not on filedocumented in this encounter Care Teams Lab Systems Analyst Relationship Specialty Start Date End Date Ant Meyer MD PCP - General Family Practice 03/30/14 documented as of this encounter
--- OUTSIDE RECORDS SUMMARY | 2024-10-06 11:37 | XMS_ITS | Continuity of Care Document ---
Author Organization [facility] Address [address] [facility] [address] [place] [address] Phone Care Team Providers Care Senior Customer Service Representative Name Role Phone Frannie Lamar MD Unavailable Unavailable Allergies, Adverse Reactions, Alerts Substance Reaction Status Criticality No Known Allergies Active No Inform ation Medications Medication Instructions Dosage Effective Dates (start - stop) Status Comments atorvastatin 20 mg tablet take 1 tablet by oral route every day 20 MG - Active Aspir-81 81 mg tablet,delayed release take 1 tablet by oral route every day - Active FISH OIL ORAL CAPSULE - Active Chewable-Guerline tablet - Active metformin 500 mg tablet take 1 tablet by oral route 2 times every day with morning and evening meals 500 MG - Active sotalol 80 mg tablet take 1 tablet by or al route 2 times every day 80 MG - Active omeprazole 40 mg capsule,delayed release take 1 capsule by oral route every day before a meal 40 MG - Active glipizide 5 mg tablet take 1 tablet by o ral route 2 times every day before meals 5 MG - Active allopurinol 300 mg tablet take 1 tablet by oral route every day 300 MG - Active gabapentin 600 mg tablet take 1 tablet by oral route 3 times every day 600 MG - Active Eliquis 5 mg tablet take 1 tablet by ora l route 2 times every day 5 MG - Active oxybutynin chloride ER 10 mg tablet,extended release 24 hr take 1 tablet by oral route every day 10 MG - Active potassium chloride ER 10 mEq capsule,extended release take 2 capsule by oral route every day with food 20 MEQ - Active furosemide 20 mg tablet take 1 tablet by oral route every day 20 MG - Active Januvia 100 mg tablet take 1 tablet by o ral route every day 100 MG - Active ferrous sulfate 325 mg (65 mg iron) tablet,delayed release - Active Procedures Procedure Date OFFICE/OUTPATIENT VISIT EST OFFICE/OUTPATIENT VISIT EST OFFICE/OUTPATIENT VISIT NEW X-RAY EXAM HIP UNI W PELVIS 2-3 VIEWS Ma OFFICE/OUTPATIENT VISIT NEW Advance Directives Directive Yes / No Effective Date File Name No Information Encounters Encounter Description Practice Location Reason(s) For Visit Diagnoses Date Provider Providers Copied on Encounter OFFICE/OUTPAT IENT VISIT EST [facility] , [address] [address], [place], [address], [place] [phone] [facility] Right hip painPrimary osteoarthritis of right hip 8 [facility] Frannie. [address], [place], [place], [id number] . tel: [phone] OFFICE/OUTPAT IENT VISIT EST [facility] , [address], [address], [phone] [facility] Primary osteoarthritis of right hip 8 Oanh Cameron. [address] [facility], [place], [place], [id number] . tel:[phone] Referring Provider: Ant Michael, [address] , [place], [address] . tel:[phone] OFFICE/OUTPAT IENT VISIT NEW [facility] , [address] [address], [place], [address], [place] [phone] [facility] Body mass index (BMI) 39.0-39.9, adultRight hip painPrimary osteoarthritis of right hip 8 [facility] Frannie. [address], [place], [place], [id number] . tel: [phone] Referring Provider: Rakesh Hugo, [address], [place], [address] . tel:[phone] OFFICE/OUTPAT IENT VISIT NEW [facility] , [address] [address], [place], [address], [place] tel:[phone] [facility] Right hip painPrimary osteoarthritis of right hipBody mass index (BMI) 39.0-39.9, adult 8 Oan[address] Cameron. [address], [place], [place], [address] . tel: [phone] Referring Provider: Ant Michael, [address], [place], [address] . tel:[phone] Family History Family Member Type Diagnosis Age At Onset No Information Immunizations Vaccine Date Status Comments Pneumo (2 yrs or older)(PPV) administered Source: Other Provider Payers Payer name Insurance type Covered republican ID Ursula bagley(s) Medicare E2 [id number] Social History Type Description Quantity Date Captured Comments Alcohol Use Details Unknown Caffeine Use Details Unknown Tobacco Use Status No Information Smoking Status No Information Sex Male Chief Complaint And Reason For Visit No Information Reason For Referral Reason For Referral No Information Plan Of Treatment Date Type Action Status Goal Lifestyle education regardin g diet completed Referral Ordered: INJECTION RT hip Appointment date/timeframe: 12/28/2017 ordered Referral Ordered: X-RAY EXAM HIP UNI W PELVIS 2-3 VIEWS RT hip ordered History Of Present Illness Encounter Date Complaint History Of Prese nt Illness No Information Functional Status Date Functional Assessmen t Pain Score 8/10 Instructions Date Instruction Additional Infor mation Discussed treatment options Rela ryne to Right hip pain Call for increase in pain Relate d to Right hip pain Home exercise program. Related t o Primary osteoarthritis of right hip Lifestyle education regarding di et Related to Body mass index (BMI) 39.0-39.9, adult Call for increase in pain Relate d to Right hip pain Giving encouragement to exercise Related to Body mass index (BMI) 39.0-39.9, adult Discussed treatment options Rela ryne to Right hip pain Assessments Type Assessment Date assessment Right hip pain assessment Primary osteoarthritis of right hip Patient Care Teams Name Effective Dates (start - stop) Status Members No Information
--- OUTSIDE RECORDS SUMMARY | 2024-10-06 11:37 | XMS_ITS | Encounter Summary ---
Author Organization [facility] Address [address] [place] [address] Care Team Providers Care Accounting Machine Operator Name Role Phone Ant Meyer MD Primary Care Provider [phone] Reason for Visit * Reason Comments Patient Communication Encounter Details Date Type Department Care Team ([facility] st Contact Info) Description 09/29/2024 Telephone [facility] Primary Care - [phone] [address] Ant Meyer MD [address] [place] [address] Patient Communication Social History Tobacco Use Types Packs/Day Years [...] on file Legal Sex Male 3:05 AM DIRECTOR EXECUTIVE COMMUNICATIONS Gender Identity Not on file Sexual Orientation Not on file 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 CTOR EXECUTIVE COMMUNICATIONS * Telephone Encounter - Shawna Shetty - 09/29/2024 2:41 PM DIRECTOR EXECUTIVE COMMUNICATIONS Copied from [facility] #[id number]. Topic: CPA Information Request >> Sep 29, 2024 2:38 PM Shawna Oliva wrote: Caller is returning phone call from clinic. Caller Name: Bigg Gonzalez Patient/Caregiver Callback Number: [phone] (mobile) Patient Has Additional Questions Are the credentials of the caregiver who talked to the patient jewel bearing polisher? No Call Notes: Patient/Caller requires a call back to discuss disconnection CTOR EXECUTIVE COMMUNICATIONS documented in this encounter Plan of Treatment Upcoming Encounters Date Type Department Care Team (Late st Contact Info) Description 10/23/2024 3:30 PM CDT Procedure visit [facility] Heart and Vascular - [address] [facility] [address] [address] [facility] [address] [place] [address] 11/14/2024 11:15 AM CDT Office Visit [facility] Heart [facility] - [address] [place] [address] Jaime Miner ANP [address] [facility] [address] [place] [address] [place] [address] [facility] [address] [place] [address] 12/05/2024 11:30 AM CDT Office Visit [facility] Neurology [address] [facility] [address] [facility] [address] [place] [address] [place] [address] [facility] [address] [place] [address] 12/26/2024 11:00 AM CDT Appointment [facility] Supp [facility] Blood Flow [address] [place] [phone] Johanny Khan, FABRICATION AND ASSEMBLY SUPERVISOR [address] [facility] [address] [place] [address] 12/26/2024 11:45 AM CDT Office Visit [facility] Glass Blower Heart [facility] [address] [facility] [address] [place] [address] Johanny Khan, FABRICATION AND ASSEMBLY SUPERVISOR [address] [facility] [address] [place] [address] Jerel Caruso MD [address] [facility] [address] [place] [address] 01/18/2025 1:30 PM CDT Procedure visit [facility] Heart [facility]ascular - [address] [facility] [address] [address] [facility] [address] [place] [address] documented as of this encounter Visit Diagnoses Not on filedocumented in this encounter Care Teams Accounting Machine Operator Relationship Specialty Start Date End Date Ant Meyer MD PCP - General Family Practice 03/30/14 documented as of this encounter
--- OUTSIDE RECORDS SUMMARY | 2024-10-06 11:37 | XMS_ITS | Referral Summary ---
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 Name Role Phone Ant Meyer MD Primary Care Provider [phone] Wilmer Sanchez MD Unavailable [phone] Williams Chavarria MD Unavailable [phone] Allergies Active Allergy Reactions Criticality Noted Date Comments Lidocaine Other (See comments) Low 03/14/2018 Naproxen Other (See comments) Low 03/14/2018 Medications allopurinol (ZYLOPRIM) 300 mg tablet TK 1 T PO QD 0 8 Active amLODIPine (NORVASC) 5 mg tablet TK 1 T PO QD 5 8 Active aspirin 81 mg tablet Take 1 tablet (81 mg total) by mouth Active ELIQUIS 5 mg tablet TK 1 T PO BID 5 8 Active furosemide (LASIX) 20 mg tablet TK 1 T PO QD 0 8 Active gabapentin (NEURONTIN) 600 mg tablet Take 1 tablet (600 mg total) by mouth Active glipiZIDE (GLUCOTROL) 5 mg tabletIndicatio ns:type 2 diabetes mellitus TK 1/2 T PO IN THE MORNING AND 1/2 T IN EVENING 1 8 Active metFORMIN (GLUCOPHAGE) 500 mg tablet Take 1 tablet (500 mg total) by mouth Active omega-3 fatty acids-fish oil 360-1,200 mg capsule Take by mouth. Activ e omeprazole (PriLOSEC) 40 mg capsule Take 1 capsule (40 mg total) by mouth Active POTASSIUM CHLORIDE ER 10 mEq CR capsule TK ONE C PO BID 1 8 Active SITagliptin (JANUVIA) 100 mg tabletIndicatio ns:type 2 diabetes mellitus Take 1 tablet (100 mg total) by mouth Active calcium carbonate-vitam in D3 (CALTRATE 600 + D) 1500 mg (600 mg elemental) -400 units per tablet Take by mouth. Activ e atorvastatin (LIPITOR) 20 mg tablet Take 1 tablet (20 mg total) by mouth daily Active oxybutynin XL (DITROPAN-XL) 10 mg 24 hr tablet Take 1 tablet (10 mg total) by mouth daily Active LANTUS 100 unit/mL (3 mL) pen for injection INJECT 10 UNITS UNDER THE SKIN DAILY WITH BREAKFAST 2 Active metoprolol tartrate (LOPRESSOR) 25 mg immediate release tablet Take 1 tablet (25 mg total) by mouth 2 (two) times a day 2 Active pen needle, diabetic 31 gauge x 3/16 needle USE DAILY WITH LANTUS 2 Active ascorbic acid (VITAMIN C) 100 mg tablet Take 1 tablet (100 mg total) by mouth daily Active fish oil-dha-epa 1,200-144-216 mg capsule Take 2 capsules by mouth daily Active sotaloL (BETAPACE) 80 mg tablet Take 1 tablet (80 mg total) by mouth 2 (two) times a day Active Active Problems Problem Noted Date Diagnosed Date Peripheral vascular disease, unspecified 023 Assessment & Plan (01/20/2023 4:21 PM CDT): Impression: Patient denies any symptoms suggestive of claudication or ischemic rest pain. Patient has an open ulceration to the right 2nd toe that is being monitored by Podiatry. Arterial Doppler reveals triphasic waveforms to bilateral lower extremities with normal ABIs. Plan: No surgical interventions needed at this time. -patient to follow-up on an as-needed basis. Encouraged patient to make a follow-up appointment if he experiences new symptoms of claudication to his lower extremities. Open wound of toe 01/01/2023 Assessment & Plan (01/20/2023 4:21 PM CDT): Impression: Patient has a small, nearly healed open wound to the tip of his right 2nd toe that is currently being monitored by Podiatry. 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 No surrounding signs of soft tissue skin infection. There is no exposed bone. Foot is warm with palpable pulses. Seen with Dr. Washington. Plan: Obtain a lower extremity arterial Doppler. He may need an angiogram for nonhealing ulceration to his 2nd toe. AROLDO (iron deficiency anemia) 11/10/2022 Overview (11/10/2022): etiology XK Dehydration 11/10/2022 Congestive heart failure (CMS/HCC) 11/10/2022 Acute on chronic renal failure 11/10/2022 Numbness and tingling in right hand 04/15/2021 Assessment & Plan (10/13/2021 10:00 AM SPA ATTENDANT): Continues to note numbness and tingling in the right hand 1-5 digits. Mild benefit with cock-up wrist splint in the evening. Will obtain EMG to evaluate further. Assessment & Plan (04/15/2021 12:17 PM CDT): Has numbness and tingling in the right hand 1 through 5 digit finger tips. Recommended cock-up wrist splint at night. Symptoms persists, consider EMG. Chronic bilateral low back pain without sciatica 04/15/2021 Overview (05/12/2021): L-spine x-ray 04/2021: Moderate lumbar facet OA, mild thoracolumbar scoliosis Assessment & Plan (01/05/2022 9:26 AM CDT): L-spine x-ray 04/2021: Moderate lumbar facet OA, mild thoracolumbar scoliosis As discussed above, primary issue is persistent chronic lower back pain. PT previously worsened symptoms. Continues to defer injections per pain management. Could reconsider this if symptoms worsen. Assessment & Plan (10/13/2021 9:57 AM SPA ATTENDANT): L-spine x-ray 04/2021: Moderate lumbar facet OA, mild thoracolumbar scoliosis As discussed above, primary issue is persistent chronic lower back pain. PT previously worsened symptoms. Continues to defer injections per pain management. Could reconsider this if symptoms worsen. Assessment & Plan (07/15/2021 12:36 PM SPA ATTENDANT): L-spine x-ray 04/2021: Moderate lumbar facet OA, mild thoracolumbar scoliosis As discussed above, primary issue is persistent chronic lower back pain. PT previously worsened symptoms. He has deferred injections per pain management. Could reconsider this if symptoms worsen. Assessment & Plan (04/15/2021 12:20 PM CDT): As discussed above, primary issue is persistent chronic lower back pain. PT previously worsened symptoms. He defers injections per pain management. Will obtain baseline imaging. Could reconsider these options if symptoms worsen. Neck pain 06/01/2019 Overview (06/06/2019): Xray C spine 06/02/2019: mild loss of anterior vertebral height of C6 Assessment & Plan (10/03/2019 11:22 AM SPA ATTENDANT): Xray C spine 06/02/2019: mild loss of anterior vertebral height of C6 Patient continues to defer PT. Could reconsider this if symptoms worsen. Assessment & Plan (08/01/2019 11:00 AM SPA ATTENDANT): Xray C spine 06/02/2019: mild loss of anterior vertebral height of C6 Patient continues to defer PT. Could reconsider this if symptoms worsen. Assessment & Plan (06/01/2019 11:03 AM CDT): Right sided neck pain and tenderness x 2 days. Likely muscular strain. Given C spine xray and PT orders. H/O calcium pyrophosphate deposition disease (CP PD) 01/25/2019 Assessment & Plan (11/10/2022 9:32 AM CDT): Prior CT hip without contrast 11/2020 revealed mild right hip CPPD arthropathy, advanced pubic symphysis CPPD arthropathy. CPPD crystals seen on prior right knee fluid analysis, as well. Will continue to monitor off all anti-inflammatory medications, including prednisone. Assessment & Plan (08/04/2022 10:00 AM SPA ATTENDANT): Prior CT hip without contrast 11/2020 revealed mild right hip CPPD arthropathy, advanced pubic symphysis CPPD arthropathy. CPPD crystals seen on prior right knee fluid analysis, as well. Monitor off prednisone. Assessment & Plan (04/06/2022 2:56 PM CDT): Prior CT hip without contrast 11/2020 revealed mild right hip CPPD arthropathy, advanced pubic symphysis CPPD arthropathy. CPPD crystals seen on prior right knee fluid analysis, as well. Monitor off prednisone. Assessment & Plan (01/05/2022 9:26 AM CDT): Suspect this is contributing to some of his residual chronic pain complaints. Prior CT hip without contrast 11/2020 revealed mild right hip CPPD arthropathy, advanced pubic symphysis CPPD arthropathy. CPPD crystals seen on prior right knee fluid analysis, as well. Continue prednisone 3 mg daily, as joint symptoms do exacerbate with tapering Assessment & Plan (10/13/2021 9:56 AM SPA ATTENDANT): Suspect this is contributing to some of his residual chronic pain complaints. Prior CT hip without contrast 11/2020 revealed mild right hip CPPD arthropathy, advanced pubic symphysis CPPD arthropathy. CPPD crystals seen on prior right knee fluid analysis, as well. Continue prednisone 3 mg daily, as joint symptoms do exacerbate with tapering Assessment & Plan (07/15/2021 12:35 PM SPA ATTENDANT): Suspect this is contributing to some of his residual chronic pain complaints. Prior CT hip without contrast 11/2020 revealed mild right hip CPPD arthropathy, advanced pubic symphysis CPPD arthropathy. CPPD crystals seen on prior right knee fluid analysis, as well. Continue prednisone 3 mg daily, as joint symptoms do exacerbate with tapering Assessment & Plan (04/15/2021 12:17 PM CDT): Suspect this is contributing to some of his residual chronic pain complaints. Prior CT hip without contrast 11/2020 revealed mild right hip CPPD arthropathy, advanced pubic symphysis CPPD arthropathy. CPPD crystals seen on prior right knee fluid analysis, as well. Continue prednisone 3 mg daily. Assessment & Plan (01/02/2021 9:27 AM CDT): Suspect this is contributing to some of his residual chronic pain complaints. Prior CT hip without contrast 11/2020 revealed mild right hip CPPD arthropathy, advanced pubic symphysis CPPD arthropathy. CPPD crystals seen on prior right knee fluid analysis, as well. Continue prednisone 3 mg daily. Assessment & Plan (10/03/2020 10:18 AM SPA ATTENDANT): Suspect this is contributing to some of his chronic pain complaints, primarily in the right knee and posterior hip. CPPD crystals seen on prior right knee fluid analysis. Currently on prednisone 3 mg daily. Taper, as discussed above. Assessment & Plan (07/04/2020 12:08 PM SPA ATTENDANT): Suspect this is contributing to some of his chronic pain complaints, primarily in the right knee and posterior hip. CPPD crystals seen on prior right knee fluid analysis. Continue prednisone 3 mg daily. Assessment & Plan (04/03/2020 11:46 AM CDT): Calcium pyrophosphate crystals seen on prior R knee fluid analysis. Continue prednisone 3 mg daily. Symptoms well controlled. Assessment & Plan (12/26/2019 11:43 AM CDT): Calcium pyrophosphate crystals seen on prior R knee fluid analysis. Continue prednisone 3 mg daily. Assessment & Plan (11/14/2019 10:04 AM CDT): Calcium pyrophosphate crystals seen on right knee fluid analysis few visits prior. Likely contributing to his musculoskeletal pain complaints. Will taper prednisone to 3 mg daily, as above. Assessment & Plan (10/03/2019 11:22 AM SPA ATTENDANT): Calcium pyrophosphate crystals seen on right knee fluid analysis few visits prior. Denies any new pain, swelling, or stiffness. Increase prednisone to 4 mg daily, as above. Assessment & Plan (08/01/2019 10:59 AM SPA ATTENDANT): Calcium pyrophosphate crystals seen on right knee fluid analysis few visits prior. Denies any new pain, swelling, or stiffness. Increase prednisone to 3 mg daily, as above. Assessment & Plan (06/01/2019 11:02 AM CDT): Calcium pyrophosphate crystals seen on right knee fluid analysis few visits prior. Denies any new pain, swelling, or stiffness. Will continue prednisone taper, as discussed above Assessment & Plan (03/01/2019 10:21 AM CDT): Calcium pyrophosphate crystals seen on right knee fluid analysis few visits prior. Denies any new pain, swelling, or stiffness. Will continue prednisone taper, as above. Assessment & Plan (01/25/2019 10:10 AM CDT): Calcium pyrophosphate crystals seen on right knee fluid analysis at last visit. Symptoms have resolved with current prednisone taper. Denies any symptoms at this time. Will continue with prednisone taper, as above. Chronic pain of left knee 01/03/2019 Assessment & Plan (11/10/2022 9:33 AM CDT): Received a repeat left knee ultrasound-guided steroid injection on 08/27/2022 with resolution of previous knee complaints. Assessment & Plan (08/04/2022 10:01 AM SPA ATTENDANT): He received a left knee intra-articular ultrasound-guided Kenalog injection 03/2022 with significant benefit. Symptoms have exacerbated recently with increased discomfort in the left knee. Is requesting a repeat Kenalog injection. Will order ultrasound-guided left knee Kenalog injection. Discussed risks versus benefits of the injection. Assessment & Plan (04/06/2022 2:58 PM CDT): He reports last knee injection was ?40 years ago with good response. Returns today with increased L knee pain and swelling without erythema or warmth. Will arrange for ultrasound guided aspiration/injection and monitor response. Assessment & Plan (01/03/2019 5:07 PM CDT): Last week, patient developed acute onset pain, stiffness, as well as significant swelling in the right knee/lower extremity, which prompted him to go to [facility] for further evaluation. 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 No evidence for uric acid crystals, per his report. Patient unsure if any steroid was injected at time of recent joint aspiration. Since that time, patient has developed significant right knee swelling, which has returned. Notable tenderness to the touch in the knee. After her right knee was cleaned and prepped with Betadine swabs x3, alcohol swabs x3, 15 cc of blood tinged fluid was aspirated from the R knee by Dr. Sanchez. Sample was sent for crystal analysis, culture/gram stain, cell count. Patient was also given prednisone taper 50 mg q.d. X4 days, 40 mg q.d. Scans 4 days, 30 mg q.d. X4 days, 20 mg q.d. X4 days, 10 mg q.d. X4 days followed by resuming current 8 mg q.d. Dosing. Unsure on the etiology of this acute swelling, although more suspicious for crystal induced arthritis given the acute onset nature and notable swelling/tenderness. Will obtain records from [facility]. Fu 4 weeks. Sooner if needed. Seen with Dr. Sanchez. CKD (chronic kidney disease) 11/25/2018 Osteoarthritis of right hip 10/24/2018 Overview (07/08/2020): Recent x-ray 07/05/2020: Mild right hip OA Assessment & Plan (01/05/2022 9:23 AM CDT): Recent x-ray 07/05/2020: Mild right hip OA CT hip without contrast 11/2020 revealed mild right hip CPPD arthropathy, advanced pubic symphysis CPPD arthropathy. Prior radiographs in 2017 displayed evidence for CPPD in the right hip. Following with Dr. Chavarria, orthopedics. He did receive R hip intra-articular injection per orthopedics few visits prior with no benefit. At most recent office visit with Dr. Chavarria, he recommended follow-up with spine surgery to see if you would be a candidate for an DAHIANA, which he has deferred. He is unable to have a lumbar spine MRI Assessment & Plan (10/13/2021 9:56 AM SPA ATTENDANT): Recent x-ray 07/05/2020: Mild right hip OA CT hip without contrast 11/2020 revealed mild right hip CPPD arthropathy, advanced pubic symphysis CPPD arthropathy. Prior radiographs in 2017 displayed evidence for CPPD in the right hip. Following with Dr. Chavarria, orthopedics. He did receive R hip intra-articular injection per orthopedics prior to last visit with no benefit. At most recent office visit with Dr. Chavarria, he recommended follow-up with spine surgery to see if you would be a candidate for an DAHIANA, which he has deferred. He is unable to have a lumbar spine MRI Assessment & Plan (07/15/2021 12:37 PM SPA ATTENDANT): Recent x-ray 07/05/2020: Mild right hip OA CT hip without contrast 11/2020 revealed mild right hip CPPD arthropathy, advanced pubic symphysis CPPD arthropathy. Prior radiographs in 2017 displayed evidence for CPPD in the right hip. Following with Dr. Chavarria, orthopedics. He did receive R hip intra-articular injection per orthopedics prior to last visit with no benefit. At most recent office visit with Dr. Chavarria, he recommended follow-up with spine surgery to see if you would be a candidate for an DAHIANA, which he has deferred. He is unable to have a lumbar spine MRI Assessment & Plan (04/15/2021 12:17 PM CDT): Recent x-ray 07/05/2020: Mild right hip OA CT hip without contrast 11/2020 revealed mild right hip CPPD arthropathy, advanced pubic symphysis CPPD arthropathy. Prior radiographs in 2017 displayed evidence for CPPD in the right hip. Following with Dr. Chavarria orthopedics. He did receive R hip intra-articular injection per orthopedics prior to last visit with no benefit. At most recent office visit with Dr. Chavarria, he recommended follow-up with spine surgery to see if you would be a candidate for an DAHIANA. Tavo has deferred this and epidural injections. He is unable to have a lumbar spine MRI Assessment & Plan (01/02/2021 12:30 PM CDT): Recent x-ray 07/05/2020: Mild right hip OA CT hip without contrast 11/2020 revealed mild right hip CPPD arthropathy, advanced pubic symphysis CPPD arthropathy. Prior radiographs in 2017 displayed evidence for CPPD in the right hip. Following with Dr. Chavarria, orthopedics. He did receive R hip intra-articular injection per orthopedics prior to last visit with no benefit. At most recent office visit with Dr. Toribio, he recommended follow-up with spine surgery to see if you would be a candidate for an DAHIANA. He is unable to have a lumbar spine MRI Assessment & Plan (10/03/2020 10:17 AM SPA ATTENDANT): Recent x-ray 07/05/2020: Mild right hip OA Prior radiographs in 2017 displayed evidence for CPPD in the right hip. Following with Dr. Chavarria, orthopedics. He did receive R hip intra-articular injection per orthopedics after last visit, although notes that this only offered benefit for 2 days. Is scheduling a follow up with ortho. Continues to defer PT. Assessment & Plan (07/04/2020 12:08 PM SPA ATTENDANT): Primary complaint continues to be persistent pain in the right posterior hip with limited internal/external rotation. Symptoms are manageable on prednisone 3 mg daily. Prior radiographs in 2017 displayed evidence for CPPD in the right hip. Will continue prednisone 3 mg daily. Obtain repeat right hip x-ray and given referral to fu with ortho. Continues to defer PT. Assessment & Plan (12/26/2019 11:20 AM CDT): Continues to note persistent pain in the right hip at times. With apixaban seen OA in the hip, per his report. Did not obtain right hip x-ray, as ordered at last visit. Again, recommended follow-up with orthopedics for possible repeat injection, if symptoms persist. Assessment & Plan (11/14/2019 10:03 AM CDT): Continues to note persistent pain in the R hip. Prior noted OA in this hip per orthopedics, per patient report. Will obtain R hip x-ray. Recommended fu with orthopedics for possible repeat injection. Assessment & Plan (10/24/2018 11:39 AM CDT): Minimal complaints. Prior injection per orthopedics. Would reconsider follow up with orthopedics, if symptoms progress. Chronic right shoulder pain 09/26/2018 Overview (10/03/2018): XR 09/30/2018: R shoulder: mild AC OA. Assessment & Plan (07/04/2020 12:09 PM SPA ATTENDANT): X-ray 09/30/2018 displayed mild AC OA Suspect OA/rotator cuff tendinitis and/or CPPD is contributing to the majority of his chronic residual shoulder symptoms. Patient has continue to defer physical therapy. Saw Dr. Yoo, which recommended PT. Patient continues to defer. Symptoms manageable at this time. Assessment & Plan (04/03/2020 11:48 AM CDT): X-ray 09/30/2018 displayed mild AC OA Suspect OA/rotator cuff tendinitis and/or CPPD is contributing to the majority of his chronic residual shoulder symptoms. Patient has continue to defer physical therapy. Saw Dr. Yoo, which recommended PT. Patient continues to defer. Symptoms manageable at this time. Assessment & Plan (12/26/2019 11:21 AM CDT): X-ray 09/30/2018 displayed mild AC OA Suspect OA/rotator cuff tendinitis and or CPPD is contributing to the majority of his chronic residual shoulder symptoms. Patient has continue to defer physical therapy. Given right shoulder MRI, which patient will obtain if right shoulder symptoms persist. Assessment & Plan (11/14/2019 10:02 AM CDT): XR 09/30/2018: mild AC OA As above, suspect OA/rotator cuff tendinitis and/or cppd is contributing to the majority of his chronic residual shoulder symptoms. Patient continues to defer PT. Could consider MRI in the future. Assessment & Plan (10/24/2018 11:45 AM CDT): Rt should symptoms minimal today. Patient does not believe that he obtained R shoulder MRI after last visit. Did not begin PT, as discussed. Will reconsider MRI and possible PT, if symptoms worsen. Assessment & Plan (09/26/2018 12:39 PM SPA ATTENDANT): Does have a mild degree of persistent right shoulder pain, which is worse with lying on at night and does have some mild pain elicited with resisted abduction. Suspicious for possible rotator cuff etiology and/or OA. Will check right shoulder x-ray. Discussed possible physical therapy, although patient defers, as denied any benefit with PT in the past. Depending on findings, if persists, may consider possible mri. DM2 (diabetes mellitus, type 2) 09/26/2018 Assessment & Plan (01/20/2023 4:19 PM CDT): Impression: Diabetes mellitus with good glucose control. Plan: Continue insulin, metformin and glipizide. Assessment & Plan (03/01/2019 10:22 AM CDT): Following with PCP. Limit carbohydrate intake while on prednisone. 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 Recheck in two years. Assessment & Plan (11/10/2022 9:34 AM CDT): DEXA 04/08/2021: L-spine-1.3 (osteopenia) left femoral neck-0.4, left total hip 0.2, right femoral neck-0.5, right total hip -0.1; normal; FRAX 7/2 Assessment & Plan (08/04/2022 10:02 AM SPA ATTENDANT): DEXA 04/08/2021: L-spine-1.3 (osteopenia) left femoral neck-0.4, left total hip 0.2, right femoral neck-0.5, right total hip -0.1; normal; FRAX 7/2 Recheck in 2 years Assessment & Plan (01/05/2022 9:27 AM CDT): DEXA 04/08/2021: L-spine-1.3 (osteopenia) left femoral neck-0.4, left total hip 0.2, right femoral neck-0.5, right total hip -0.1; normal; FRAX 7/2 Recheck in 2 years Assessment & Plan (10/13/2021 9:57 AM SPA ATTENDANT): DEXA 04/08/2021: L-spine-1.3 (osteopenia) left femoral neck-0.4, left total hip 0.2, right femoral neck-0.5, right total hip -0.1; normal; FRAX 7/2 Recheck in 2 years Assessment & Plan (07/15/2021 12:37 PM SPA ATTENDANT): DEXA 04/08/2021: L-spine-1.3 (osteopenia) left femoral neck-0.4, left total hip 0.2, right femoral neck-0.5, right total hip -0.1; normal; FRAX 7/2 Recheck in 2 years Assessment & Plan (04/15/2021 12:19 PM CDT): DEXA 04/08/2021: L-spine-1.3 (osteopenia) left femoral neck-0.4, left total hip 0.2, right femoral neck-0.5, right total hip -0.1; normal; FRAX 7/2 Recheck in 2 years Assessment & Plan (01/02/2021 9:28 AM CDT): Normal dexa 09/2018. Recheck in two years. Recheck DXA today Assessment & Plan (12/26/2019 11:42 AM CDT): Normal dexa 09/2018. Continue calcium and vitamin d supplementation. Assessment & Plan (11/14/2019 10:05 AM CDT): Normal dexa 09/2017. Recheck at next visit. Continue ca and vit d supplementation. Assessment & Plan (11/24/2018 9:42 AM CDT): Normal dexa 09/2017. Continue otc ca and vit d supplementation. Assessment & Plan (10/24/2018 11:44 AM CDT): Normal dexa 09/2017. Continue otc ca and vit d supplementation. Assessment & Plan (09/26/2018 12:38 PM SPA ATTENDANT): Patient did not obtain DEXA scan ordered at last visit. Obtain at this time. Continue [id number] calcium and vitamin-D supplementation. Assessment & Plan (08/23/2018 4:32 PM SPA ATTENDANT): Continue otc calcium and vitamin D. Proceed with dexa scan. Assessment & Plan (07/05/2018 12:41 PM SPA ATTENDANT): Denies any recent dexa. 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 Advised OTC calcium and vit d supplementation. Encounter for long-term (current) use of medicat ions 07/05/2018 Assessment & Plan (11/10/2022 9:33 AM CDT): Routine labs today. Assessment & Plan (08/04/2022 10:00 AM SPA ATTENDANT): Routine labs today. Assessment & Plan (01/05/2022 9:27 AM CDT): Routine labs today. Assessment & Plan (10/13/2021 9:57 AM SPA ATTENDANT): Routine labs today. Assessment & Plan (07/15/2021 12:36 PM SPA ATTENDANT): Routine labs today. Assessment & Plan (04/15/2021 12:19 PM CDT): Routine labs today. Assessment & Plan (01/02/2021 9:28 AM CDT): Routine labs today. Assessment & Plan (10/03/2020 10:18 AM SPA ATTENDANT): Routine labs today. Assessment & Plan (07/04/2020 12:08 PM SPA ATTENDANT): Routine labs today. Assessment & Plan (04/03/2020 11:48 AM CDT): Routine labs today. Assessment & Plan (12/26/2019 11:21 AM CDT): Routine labs today. Assessment & Plan (11/14/2019 10:05 AM CDT): Routine labs in 2-4 weeks. Assessment & Plan (10/03/2019 11:22 AM SPA ATTENDANT): Routine labs today. Assessment & Plan (08/01/2019 11:00 AM SPA ATTENDANT): Routine labs today. Assessment & Plan (06/01/2019 11:03 AM CDT): Routine labs today. Assessment & Plan (03/01/2019 10:21 AM CDT): Routine labs today. Assessment & Plan (01/25/2019 10:10 AM CDT): Routine labs today. Assessment & Plan (01/03/2019 5:07 PM CDT): Routine labs today. Synovial fluid analysis of R knee, as above. Assessment & Plan (11/24/2018 9:42 AM CDT): Routine labs today. Assessment & Plan (10/24/2018 11:45 AM CDT): Routine labs today. Assessment & Plan (09/26/2018 12:39 PM SPA ATTENDANT): Routine labs today. Assessment & Plan (08/23/2018 4:32 PM SPA ATTENDANT): Routine labs today. Assessment & Plan (07/05/2018 12:45 PM SPA ATTENDANT): Routine labs today. Acute blood loss anemia 05/30/2018 Polymyalgia rheumatica (CMS/HCC) 05/20/2018 Overview (07/08/2020): US right hand/wrist (05/27/18): Moderate effusions and power doppler on examination which will have to be correlated clinically. Grade 2 effusions and grade 2 power doppler in the long view of the wrist and radial/scaphoid joint. Grade 1 effusion and grade 1 power doppler in the ulnar styloid and 3rd PIP joint. Grade 1 effusion in the 4th MCP and 2nd PIP joints. Moderate synovial thickening in the wrist, 3rd MCP and 3rd PIP joints. Mild synovial thickening in the 2nd MCP and 2nd PIP joints Initial serologies: ESR 44, CRP 70.4, MILADY 1:160, WBC 11 x-ray ( 05/2018): right /left hand polyarticular OA, which is worse at the [facility], C-spine: Mild cervical spondylosis; Recent x-ray 07/05/2020: Mild right hip OA History of acute onset polyarthralgia 1 month prior, primarily involving the bilateral shoulders (right greater than left ) with radiation into the right wrist/CMC region. Also notes pain in the bilateral hips (primarily involving the right hip). Symptoms worse in the morning, which takes approximately 1-1.5 hr to loosen up. Placed on prednisone 10 mg q.d. Approximately 1 week prior with some mild improvement of symptoms, although continues to have some significant stiffness in the morning. Denies other symptoms for CTD. Denies family history for autoimmune disease. Reduced range of motion of the bilateral shoulders with abduction approximately 70 with TTP over the bilateral shoulder girdles. Swelling right wrist, as well as TTP over the right CMC joint, but otherwise no synovitis noted. Inability to make a full fist.Minimal tenderness over the external hips right internal and external hip rotation. No TTP over the bilateral hips. Symptoms are suspicious for early onset rheumatoid arthritis versus polymyalgia rheumatica. Will trial increased dose of prednisone to 15 mg q.d. At this time. If no improvement with this, will then increase to 20 mg q.d.. Patient was advised of the potential side effects of the medication, including but not limited to increased blood sugar, weight gain, avascular necrosis, glaucoma, cataracts, and/or osteoporosis. If no response with this, unlikely due to PMR and more likely possible inflammatory arthritis, such as RA. Further evaluate with appropriate serologies. Follow-up 2 weeks. Sooner if needed. Seen with Dr. Sanchez. Of note, patient does have a history of right hip osteoarthritis, which she has received injections in the past. This may be the cause for his right hip pain. On prednisone 20 mg QD. If doing poorly, consider addition of mtx. Assessment & Plan (11/10/2022 9:31 AM CDT): Overall, has continued to do well since last visit. Remains tapered off steroids without any recurrence of PMR symptoms. Remain off steroids and monitor. Follow- up 6 months. Sooner if needed Assessment & Plan (08/04/2022 9:59 AM SPA ATTENDANT): Overall, has done very well since last visit. He remains tapered off steroids without any recurrence of PMR symptoms. No evidence to suggest active PMR. Will remain off steroids and monitor. Routine labs today. Follow-up 3-4 months. Sooner if needed. Assessment & Plan (04/06/2022 2:55 PM CDT): Overall, has done fairly well since last visit; he has successfully tapered off steroids without any recurrence of PMR symptoms. Will remain off steroids and monitor. Routine labs today. Follow-up 3 months or sooner as needed. Assessment & Plan (01/05/2022 9:22 AM CDT): Overall, has done fairly well since last visit. Has not had recurrence of PMR symptoms. It is noted that we have previously tried to taper off prednisone numerous times in the past with exacerbation of joint symptoms, primarily in the right shoulder and few joints in the hand. As has been previously mentioned, I do not suspect that this is related to his PMR. With that said, will maintain on low- dose prednisone 3 mg daily, as this does manage his CPPD and chronic joint complaints. Routine labs today. Follow-up 3 months. Sooner if needed. Assessment & Plan (10/13/2021 9:55 AM SPA ATTENDANT): Overall, has done fairly well since last visit. Has not had recurrence of PMR symptoms. It is noted that we have previously tried to taper off prednisone numerous times in the past with exacerbation of joint symptoms, primarily in the right shoulder and few joints in the hand. As has been previously mentioned, I do not this is related to his PMR. For this reason, will maintain on low-dose prednisone 3 mg daily, as this does manage his CPPD and chronic joint complaints. Routine labs today. Follow-up 3 months. Sooner if needed. Assessment & Plan (07/15/2021 12:34 PM SPA ATTENDANT): He again did try to taper off prednisone after last visit with exacerbation of symptoms with increased right shoulder pain and across few joints in the right hand. I do suspect this is unrelated to his PMR and there is no evidence to suggest active PMR present. Nonetheless, will maintain on low dose prednisone 3 mg daily, as this does manage his CPPD and chronic joint complaints. He is aware of the long-term side effect risks of prednisone, which has been discussed extensively on several occasions. Routine labs today. Follow-up 3 months. Sooner if needed. Assessment & Plan (04/15/2021 12:15 PM CDT): He has previously tried to taper prednisone from 3 mg daily with exacerbation of symptoms with increased shoulder girdle/upper extremity pain. For this reason, he has remained on prednisone 3 mg daily with improvement in symptoms. He has strong concerns with tapering further. Continues to have some persistent pain in the right lower back, right hip/groin into the buttocks, which I suspect is related to degenerative arthritis. He has followed with Dr. Chavarria, orthopedics, which feels the symptoms are more likely due to lower back degenerative arthritis. Overall, do feel that his PMR remains adequately controlled. Will maintain on prednisone 3 mg daily. Could reconsider tapering at some point in the future. Follow-up 3 months. Sooner if needed. Assessment & Plan (01/02/2021 9:26 AM CDT): After last visit, he did try to taper prednisone from 3 mg daily on 2 separate occasions. He subsequently experienced significant increased shoulder girdle/upper extremity pain. For this reason, he did resume prednisone 3 mg daily with improvement in symptoms. Continues to have some persistent pain in the right lower back, right hip/groin into the buttocks, which I suspect related to degenerative arthritis. He has followed with Dr. Chavarria, orthopedics, which feels the symptoms are more likely due to lower back degenerative arthritis. Will track down records. Overall, do feel that his PMR remains adequately controlled. Will maintain on prednisone 3 mg daily. Could reconsider tapering at some point in the future. Follow-up 3 months. Sooner if needed. Assessment & Plan (10/03/2020 10:16 AM SPA ATTENDANT): Since last visit, patient has remained on prednisone 3 mg daily. He continues to deny significant shoulder girdle/hip girdle pain. Does have some persistent pain in the right hip/groin into the buttocks, which suspect is related to OA/CPPD, as previously mentioned. Most recent labs 06/2020 displayed persistent normal CRP/ESR. No shoulder/girdle TTP on exam. Do feel that PMR continues to be adequately controlled. Has had hesitations with tapering below prednisone 3 mg daily in the past. Currently on prednisone 3 mg daily. At this time, would like to trial tapering prednisone very slowly by 1 mg every 4 weeks until off. Routine labs today. Follow-up 3 months. Sooner if needed. Assessment & Plan (07/04/2020 12:07 PM SPA ATTENDANT): Continues to deny significant shoulders girdle discomfort. Persistent pain in the right posterior hip with limited internal/external range of motion, which I suspect is related to CPPD/OA. Most recent ESR/CRP within normal limits. Do feel that his PMR is adequately controlled. Patient has strong concerns with tapering down on prednisone due to significant worsened symptoms in the past. He is aware the long-term risks of prednisone. At this time, will maintain on prednisone 3 mg daily, which will secondarily benefit his CPPD. Follow-up 3 months. Sooner if needed. Routine labs today. Assessment & Plan (04/03/2020 11:46 AM CDT): CDAI 3. Patient has remained on prednisone 3 mg daily since last visit. Again, notes that he tried to taper below 3 mg with increased pain in the shoulder/hip girdle. Symptoms very well controlled on the current prednisone dose. Does have some residual mild discomfort in the right shoulder, right hip, which I suspect is unrelated to his PMR. Symptoms improved with prednisone, as well. CPPD making me contributing to his difficulty with tapering and tired off prednisone. At this time, will maintain on prednisone 3 mg daily. Consider tapering the future. Follow-up 3 months. Sooner if needed. Routine labs today. Assessment & Plan (12/26/2019 11:19 AM CDT): Patient has remained on prednisone 3 mg daily since last visit. Notes that any time that he tries to taper below 3 mg daily, he been begins to experienced increased pain in the shoulder/hip girdle. Does have some residual mild discomfort in the right shoulder, right hip, which I suspect is unrelated to his PMR. At this time, notes to be doing fairly well with minimal pain in the shoulder/hip girdle and denies any pain in the peripheral joints. As he has had difficulty tapering off prednisone in the past, will maintain at prednisone 3 mg daily at this time. CPPD may be contributing to his difficulties with tapering entirely off prednisone. Follow-up 3 months. Sooner if needed. Will try to taper further at next visit. Assessment & Plan (11/14/2019 9:59 AM CDT): After last visit, patient increased prednisone to 4 mg daily with improvement in shoulder/hip symptoms. Overall, notes to be doing fairly well at this time. Does continue to note some residual discomfort in the R shoulder and R hip. Denies any pain or swelling in the anahi hands, although does note a mild generalized stiffness for up to 90 minutes in the morning. Initial labs displayed elevations in crp at 70.4 and esr at 44, which have been WNL for several months. At this time, suspect that his PMR is adequately controlled given this and the lack of anahi hip/shoulder symptoms. Suspect that OA/rotator cuff tendinitis and/or CPPD is contributing to some of his residual pain in the R shoulder and R hip. Will have patient taper the prednisone to 3 mg daily at this time. Routine labs in the next 2-4 weeks, which will be mailed to patient. FU 4 weeks. Sooner if needed. Assessment & Plan (10/03/2019 11:22 AM SPA ATTENDANT): Since last visit, patient increased prednisone to 3 mg daily. Has noted some increased pain in the bilateral proximal upper extremity, which is only mildly bothersome at night. Denies any pain or stiffness in the shoulder/hip girdle and/or hands/feet at present. Given the persistent shoulder girdle symptoms at night, will increase prednisone slightly to 4 mg daily. Patient is to call in 7 days if symptoms persist and will likely increased to 5 mg daily at that point. Otherwise, will maintain at prednisone 4 mg daily until next visit. Follow-up 6 weeks. Sooner if needed. Assessment & Plan (08/01/2019 10:59 AM SPA ATTENDANT): Since last visit, patient has tapered prednisone down to 2 mg daily. Was doing fairly well on prednisone 3 mg daily, although shoulder girdle symptoms have worsened slightly since reducing to 2 mg. Slight hip girdle discomfort, but denies any peripheral joint pain or stiffness. Shoulder girdle ttp on exam. Given the slightly worsened symptoms, will have patient increase prednisone back to 3 mg daily and remain at this dose until next visit. Will consider tapering further at next visit. Follow-up 2 months. Sooner if needed. Assessment & Plan (06/01/2019 11:01 AM CDT): CDAI 0. Since last visit, patient did try to taper prednisone to 4 mg daily with some return in hip girdle/shoulder girdle symptoms, so subsequently increased back to 5 mg daily. Has remained on this dose for the past 4 weeks. Denies any shoulder girdle/proximal upper extremity and or hip girdle/proximal lower extremity pain or tenderness. No tenderness on exam today. Appears well controlled. Will have patient taper prednisone to 4 mg daily at this time. Patient will call back in 7-14 days to notify us if symptoms again return. If symptoms do return, will have him increased back to 5 mg daily and maintain at this x3 months followed by further tapering at that point. Routine labs today. Follow-up 2 months. Sooner if needed. Seen with Dr. Sanchez. Assessment & Plan (03/01/2019 10:21 AM CDT): CDAI 2. Overall, patient continues to note to be doing well at this time with minimal complaints. Denies any new shoulder girdle/proximal upper extremity and/or hip girdle/proximal lower extremity pain or tenderness. Denies any peripheral joint pain or stiffness. No obvious peripheral synovitis and or hip girdle/shoulder girdle tenderness on exam. Has tapered prednisone to 8 mg q.d. At this time. Appears well controlled. Will continue tapering prednisone by 1 mg every 4 weeks until off. Follow-up 3 months. Sooner if needed. Routine labs today. Assessment & Plan (01/25/2019 10:09 AM CDT): Overall, patient notes to be doing very well at last visit. Notes full resolution of knee swelling and discomfort. Right knee fluid analysis displayed inflammatory cells, as well as calcium crystals. Currently has tapered prednisone to 10 mg q.d. At this time and is scheduled to reduce prednisone to 8 mg q.d. In one week. No obvious peripheral synovitis. No proximal upper extremity and or lower extremity tenderness on exam. Appears well controlled at this time. Will taper prednisone to 8 mg q.d. Next week, as scheduled. Will continue prednisone 8 mg q.d. Until next visit. Follow-up 5 weeks. Sooner if needed. Routine labs today. Assessment & Plan (01/03/2019 5:02 PM CDT): Continues to note full resolution shoulder girdle/proximal upper extremity and hip girdle/proximal lower extremity symptoms since tapering the prednisone down to 8 mg q.d.. Denies any peripheral joint complaints or tenderness. No tenderness in the shoulder girdle/proximal upper extremity and right hip oral/proximal lower extremity on exam today. No obvious peripheral synovitis. Given his significant right knee swelling, will prescribe a prednisone taper, as above, followed by resuming his dose of 8 mg QD. Not suspicious for PMR as the cause for his R knee swelling, although current prednisone taper should continue to suppress his pmr symptoms. Assessment & Plan (11/24/2018 9:46 AM CDT): Patient continues to note full resolution of shoulder girdle/proximal upper extremity and hip girdle/proximal lower extremity symptoms since tapering the prednisone down to 10 mg q.d.. Denies any peripheral joint complaints or tenderness. No tenderness in the shoulder girdle/proximal upper extremity or hip girdle/proximal lower extremity on exam today. No obvious peripheral synovitis. Appears well controlled. Most recent CRP and ESR labs much improved from initial. Currently on prednisone 10 mg q.d. At this time. Will taper prednisone by 1 mg every 4 weeks until off. Follow-up 2 months. Sooner if needed. Routine labs today. Assessment & Plan (10/24/2018 4:35 PM CDT): Patient notes that shoulder girdle/ proximal upper extremity and hip girdle/proximal lower extremity symptoms have remained resolved since tapering the prednisone down to 12.5 mg. Denies any peripheral joint complaints or tenderness. No tenderness in the shoulder girdle/proximal upper extremity or hip girdle/proximal lower extremity on exam today. No obvious peripheral synovitis. Appears well controlled. Will taper prednisone to 10 mg daily for the next 4 weeks. Follow-up 4 weeks. Sooner if needed. At that time, will likely taper prednisone by 1 mg every 4 weeks until off. Assessment & Plan (09/26/2018 12:41 PM SPA ATTENDANT): Patient notes that shoulder girdle/proximal upper extremity and hip girdle/proximal lower extremity symptoms pain symptoms has significantly improved since increasing the prednisone back to 15 mg q.d. At last visit. Does still have some mild residual right shoulder pain, which is worse with lying at night. Am suspicious that may have a secondary issues of possible rotator cuff tendinitis and/or OA, which may be contributing. Patient also notes significant improvement in joint pain and stiffness in the hands since he increased the prednisone. Will taper prednisone to 12.5 mg q.d. For the next 4 weeks. Routine labs today. Follow-up 4 weeks. Sooner if needed. Patient was advised monitor glucose levels closely on prednisone. Continue to follow with PCP. if symptoms begin to return with tapering on the prednisone again, would consider addition of oral DMARD therapy. Assessment & Plan (08/23/2018 4:31 PM SPA ATTENDANT): Patient had some confusion with prednisone tapering, which was discussed at last visit. Patient was tapering prednisone by 2.5 mg weekly, which she is currently on a prednisone 5 mg dose seen at this time. At last visit, had discussed tapering prednisone by 2.5 mg biweekly until down to 10 mg daily. For this reason, patient has noted significantly worsened symptoms, primarily involving the proximal upper extremity/shoulder girdle, as well as the hip girdle/proximal lower extremity. Tenderness elicited on exam, along with pain elicited with shoulder abduction. Appears to have an exacerbation of his PMR symptoms secondary to reducing the prednisone too quickly. Will increase prednisone at this time back to 15 mg q.d. For 4 days. If 90% improvement, will maintain at this dosage for the next month. If not, will further increase prednisone to 20 mg daily until next visit. At next visit, will then begin to taper prednisone at a slower rate. Routine labs today. Fu 4 weeks. Sooner if needed. Assessment & Plan (07/05/2018 12:39 PM SPA ATTENDANT): Full resolution of symptoms with prednisone 20 mg daily dosage. Denies any proximal UE/LE pain at this time. No TTP on exam with full ROM w/ 5/5 strength. As appears well controlled at this time, will begin to gradually taper the prednisone from 20 mg by 2.5 mg every two weeks until next visit. Routine labs today. Fu 2 months. Sooner if needed. Assessment & Plan (06/16/2018 12:30 PM CDT): US right hand/wrist (05/27/18): Moderate effusions and power doppler on examination which will have to be correlated clinically. Grade 2 effusions and grade 2 power doppler in the long view of the wrist and radial/scaphoid joint. Grade 1 effusion and grade 1 power doppler in the ulnar styloid and 3rd PIP joint. Grade 1 effusion in the 4th MCP and 2nd PIP joints. Moderate synovial thickening in the wrist, 3rd MCP and 3rd PIP joints. Mild synovial thickening in the 2nd MCP and 2nd PIP joints Initial serologies: ESR 44, CRP 70.4, MILADY 1:160, WBC 11 x-ray ( 05/2018): right /left hand polyarticular OA, which is worse at the [facility], C-spine: Mild cervical spondylosis; Initial sx: History of acute onset polyarthralgia 1 month prior, primarily involving the bilateral shoulders (right greater than left ) with radiation into the right wrist/CMC region. Also notes pain in the bilateral hips (primarily involving the right hip). Symptoms worse in the morning, which takes approximately 1-1.5 hr to loosen up. Placed on prednisone 10 mg q.d. Approximately 1 week prior with some mild improvement of symptoms, although continues to have some significant stiffness in the morning. Denies other symptoms for CTD. Denies family history for autoimmune disease. Patient continues to note pain and stiffness, primarily involving his shoulder girdle and proximal upper extremities, as well as a history of proximal lower extremity pain and stiffness prior to prednisone usage. Patient did not increase prednisone from 10 mg q.d., as discussed at last visit. Also continues to have some joint pains, primarily involving the right hand / wrist , as well as several other joints. TTP shoulder girdle /proximal upper extremities. Symptoms do sound compatible with polymyalgia rheumatica, which may also be the cause for his joint inflammation at this time. Has improved with prednisone 10 mg q.d., although not quite adequately controlled at this time. For this reason, will increase prednisone to 15 mg q.d. And have patient call on Wednesday. If symptoms not fully resolved, will get increased dosage to 20 mg q.d. temporarily and see if symptoms resolve. Patient was advised of the potential side effects of the medication, including but not limited to increased blood sugar, weight gain, avascular necrosis, glaucoma, cataracts, and/or osteoporosis. Other additional inflammatory arthritis does continue to remain on the differential at this time, although will see how patient responds to prednisone. Fu 4 weeks. Sooner if needed. Seen with Dr. Sanchez. Assessment & Plan (05/20/2018 12:43 PM CDT): History of acute onset polyarthralgia 1 month prior, primarily involving the bilateral shoulders (right greater than left ) with radiation into the right wrist/CMC region. Also notes pain in the bilateral hips (primarily involving the right hip). Symptoms worse in the morning, which takes approximately 1-1.5 hr to loosen up. Placed on prednisone 10 mg q.d. Approximately 1 week prior with some mild improvement of symptoms, although continues to have some significant stiffness in the morning. Denies other symptoms for CTD. Denies family history for autoimmune disease. Reduced range of motion of the bilateral shoulders with abduction approximately 70 with TTP over the bilateral shoulder girdles. Swelling right wrist, as well as TTP over the right CMC joint, but otherwise no synovitis noted. Inability to make a full fist.Minimal tenderness over the external hips right internal and external hip rotation. No TTP over the bilateral hips. Symptoms are suspicious for early onset rheumatoid arthritis versus polymyalgia rheumatica. Will trial increased dose of prednisone to 15 mg q.d. At this time. If no improvement with this, will then increase to 20 mg q.d.. Patient was advised of the potential side effects of the medication, including but not limited to increased blood sugar, weight gain, avascular necrosis, glaucoma, cataracts, and/or osteoporosis. If no response with this, unlikely due to PMR and more likely possible inflammatory arthritis, such as RA. Further evaluate with appropriate serologies. Follow-up 2 weeks. Sooner if needed. Seen with Dr. Sanchez. Of note, patient does have a history of right hip osteoarthritis, which she has received injections in the past. This may be the cause for his right hip pain. 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 Obstructive sleep apnea 05/05/2018 Hypertensive heart and chron ic kidney disease with heart failure and stage 1 through stage 4 chronic kidney disease, or chronic kidney disease (CMS/HCC) 05/05/2018 Chronic systolic HF (heart failure) ([facility]/HCC) S/P AVR (aortic valve replacement) 12/14/2014 CAD (coronary artery disease) 12/04/2014 (aortic stenosis) 12/04/2014 Pacemaker 10/17/2014 SSS (sick sinus syndrome) ([facility]) 06/27/2014 Peripheral venous insufficiency 06/06/2014 Hyperlipidemia 06/06/2014 Benign essential hypertension 06/06/2014 Assessment & Plan (01/20/2023 4:19 PM CDT): Impression: Chronic stable hypertension. Plan: Continue amlodipine and metoprolol. 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[facility]) 08/07 Endocarditis, subacute 08/04/2011 Immunizations Immunization Administration Dates Next Due Influenza, Quadrivalent, Spl it, Preservative Free, Intramuscular 06/07/2017 Influenza, Trivalent, High D ose, Split, Preservative Free, Intramuscular 08/11/2019,05/31/2018 Influenza, Trivalent, IM (MDV) 6,05/10/2015,04/26/2015,06/21 Pfizer SARS-CoV-2 Monovalent Vaccination (12+ Yrs) PURPLE 11/13/2020,10/23/2020 Pneumococcal Conjugate PCV 13 04/26/2015 Pneumococcal Polysaccharide PPV23 07/29/2017, Td, adsorbed 12/07/2011 ZOSTER Recombinant 08/11/2019 Social History Tobacco Use Types Packs/Day Years Used Date Smoking Tobacco: Never Assessed Sex and Gender Information Value Date Recorded Sex Assigned at Not on file Legal Sex Male 3:13 PM CDT Gender Identity Not on file Sexual Orientation Not on file Last Filed Vital Signs Vital Sign Reading Time Taken Comments Blood Pressure 140/87 12/30/2022 1:10 PM CDT Pulse 83 12/30/2022 1:10 PM CDT Temperature 36.4 C (97.6 F) 10/13/2021 9:17 AM SPA ATTENDANT Respiratory Rate - - Oxygen Saturation 94% 11/10/2022 9:12 AM CDT Inhaled Oxygen Concentration - - Weight 113.4 kg (250 lb) 01/20/2023 2:47 PM CDT Height 180.3 cm (5' 11 ) 01/20/2023 2:47 PM CDT Body Mass Index 34.87 01/20/2023 2:47 PM CDT Plan of Treatment Not on file Procedures Procedure Name Priority Date/Time Associated Diagnosis Comments COMPREHENSIVE METABOLIC PANEL Routine 08/04/2022 9:37 AM SPA ATTENDANT Polymyalgia rheumatica (CMS/HCC) (HCC) Encounter for long-term (current) use of medications from Last 3 Months or Most Recently Relevant to Health Maintenance Results * (ABNORMAL) Comprehensive metabolic panel (08/04/2022 9:37 AM SPA ATTENDANT) Glucose 116(H) 65 - 99 mg/dL [facility] Comment: Fasting reference interval For someone without known diabetes, a glucose value between 100 and 125 mg/dL is consistent with prediabetes and should be confirmed with a follow-up test. BUN 21 7 - 25 mg/dL [facility] Creatinine 1.15 0.70 - 1.22 mg/dL [facility] eGFR 63 > OR = 60 mL/min/1. 73m2 [facility] Comment: The eGFR is based on the CKD-EPI 2020 equation. To calculate the new eGFR from a previous Creatinine or Cystatin C result, go to https://www.kidney.org/professionals/ kdoqi/gfr%5Fcalculator BUN/creat ratio NOT APPLICABLE 6 - 22 (calc) [facility] Sodium 140 135 - 146 mmol/L [facility] Potassium, pl 3.9 3.5 - 5.3 mmol/L [facility] Chloride 100 98 - 110 mmol/L [facility] CO2 29 20 - 32 mmol/L [facility] Calcium 9.7 8.6 - 10.3 mg/dL [facility] Protein, sr 7.0 6.1 - 8.1 g/dL [facility] Albumin 4.3 3.6 - 5.1 g/dL [facility] GLOBULIN 2.7 1.9 - 3.7 g/dL (calc) [facility] Alb/glob ratio 1.6 1.0 - 2.5 (calc) [facility] Bilirubin, total 0.7 0.2 - 1.2 mg/dL [facility] Alk phos 95 35 - 144 U/L [facility] AST 15 10 - 35 U/L [facility] ALT (SGPT) 15 9 - 46 U/L [facility] Blood 08/04/2022 9:37 AM SPA ATTENDANT 08/04/2022 9:38 AM SPA ATTENDANT Marvin FELICIAN[facility] BLOOD ORDERABLES nal Result [facility] [id number] [place] [phone] from Last 3 Months or Most Recently Relevant to Health Maintenance Insurance MED[employer]ARE [employer] MEDICARE FOR[facility]LY [facility] Care Teams [employer] Relationship Specialty Start Date End Date Ant Meyer MD [address] [facility] [address] [place] [address] PCP - General Family Medicine 05/18/18 Wilmer Sanchez MD [address] [facility] [address] [place] [address] Consulting Physician Rheumatology 05/18/18 Williams Chavarria MD [address] [place] [id number] Referring Physician Orthopedic Surgery 01/02/21
--- OUTSIDE RECORDS SUMMARY | 2024-10-06 11:37 | XMS_ITS | Clinical Summary ---
Author Organization [facility] Address [address] [place] [address] Phone Care Team Providers Care Employee Benefits Attorney Name Role Phone Ant Meyer MD Primary Care Provider [phone] Allergies No known active allergies Medications aspirin (ECOTRIN EC) 81 mg Tablet, Delayed Release (E.C.) Take 81 mg by mouth daily. Active Fish Oil-DHA-EPA 1,200144-216 mg Capsule Take 2 Capsules by mouth daily. Active ascorbic acid, vitamin C, (VITAMIN C) 100 mg Tablet Take 500 mg by mouth daily. Active metoprolol tartrate (LOPRESSOR) 25 mg tablet Take 0.5 Tablets (12.5 mg) by mouth 2 times daily. 05/07/20 22 Active cholecalcifero l, Vitamin D3, (VITAMIN D3) 25 mcg (1,000 unit) Capsule Take by mouth daily. Active primidone (MYSOLINE) 50 mg tabletIndicati ons:Tremors of nervous system Take 1 Tablet (50 mg) by mouth every 8 hours. 60 Tablet 2 06/25/20 22 Active CPAP / BIPAP suppliesIndica tions:Obstruct jasmine sleep apnea Length of need: 99 months Mask Type: nasal with headgear every 6 months, mask only every 3 months,2 cushions per month. Tubing: heated 1 every 3 months, water chamber 1 every 6 months, chin strap 1 every 6 months, filters disposable 2 per month, filters reusable 1 per 6 months. 1 Each 09/01/19 24 Active lactobacillus rhamnosus, GG, (CULTURELLE) 10 billion cell CapsuleIndicat ions:Mucus in stool Take 1 Capsule by mouth daily. 90 Capsule 3 10/01/19 24 Active glipiZIDE (GLUCOTROL) 5 mg tabletIndicati ons:Type 2 diabetes mellitus with stage 3 chronic kidney disease, without long-term current use of insulin (CMS/HCC) TAKE 1/2 TABLET BY MOUTH IN THE MORNING AND IN THE EVENING 100 Tablet 3 11/04/19 24 Active oxyBUTYnin (DITROPAN XL) 10 mg Extended Release 24 hour tablet take 1 tablet by mouth every day 100 Tablet 3 11/04/19 24 Active omeprazole (PriLOSEC) 40 mg Capsule, Delayed Release(E.C.) TAKE 1 CAPSULE(40 MG) BY MOUTH TWICE DAILY 200 Capsule 3 11/04/19 24 Active furosemide (LASIX) 20 mg tabletIndicati ons:Edema of both legs TAKE 1 TABLET(20 MG) BY MOUTH TWICE DAILY 180 Tablet 3 01/03/20 24 Active metFORMIN (GLUCOPHAGE) 500 mg tablet take 1 tablet by mouth twice daily 180 Tablet 3 01/03/20 24 Active allopurinoL (ZYLOPRIM) 300 mg tablet take 1 tablet by mouth every day 90 Tablet 3 01/03/20 24 Active potassium chloride (KLOR-CON M10) 10 mEq Extended Release tablet TAKE 1 TABLET(10 MEQ) BY MOUTH TWICE DAILY WITH MEALS 180 Tablet 3 02/07/20 24 Active Januvia 100 mg Tablet take 1 tablet by mouth every day 90 Tablet 1 05/19/20 24 Active amoxicillin (AMOXIL) 500 mg capsule Take 4 Capsules (2,000 mg) by mouth one time for 1 dose. 4 Capsule 06/06/20 24 Active apixaban (Eliquis) 5 mg tablet TAKE 1 TABLET BY MOUTH TWICE DAILY 60 Tablet 4 06/19/20 24 Active gabapentin (NEURONTIN) 600 mg tablet TAKE 1 TABLET BY MOUTH THREE TIMES DAILY 270 Tablet 3 07/20/20 24 Active atorvastatin (LIPITOR) 40 mg tablet Take 1 Tablet (40 mg) by mouth daily. 30 Tablet 5 09/04/19 25 Active carbidopa-levo dopa (SINEMET) 25-100 mg tablet Titrate to a goal dose of 1 tab three times a day. Please follow instructions provided during appointment. 90 Tablet 2 09/04/19 25 Active Insulin [place], Disposable, (BD Ultra-Fine Mini Pen Needle) 31 gauge x 3/16 Needle USE DAILY WITH LANTUS DIRECTED 100 Each 3 09/05/19 25 Active predniSONE (DELTASONE) 20 mg tabletIndicati ons:Acute bronchitis, unspecified organism Take 2 Tablets (40 mg) by mouth daily. 10 Tablet 09/18/19 25 Active ciprofloxacin HCl (CIPRO) 500 mg tablet Take 1 Tablet (500 mg) by mouth 2 times daily. 14 Tablet 09/29/19 25 Active Lantus Solostar U-100 Insulin 100 unit/mL (3 mL) solution for injection INJECT 10 UNITS UNDER THE SKIN DAILY WITH BREAKFAST 15 mL 2 10/05/19 25 Active Lantus Solostar U-100 Insulin 100 unit/mL (3 mL) solution for injection INJECT 10 UNITS SUBCUTANEOUS DAILY WITH BREAKFAST 15 mL 2 06/04/20 23 025 Discontinued azithromycin (ZITHROMAX) 250 mg tabletIndicati ons:Acute bronchitis, unspecified organism Take 2 Tablets (500 mg) by mouth daily for 1 day, THEN 1 Tablet (250 mg) daily for 4 days. 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 05/16/2018 Chronic kidney disease, stage III (moderate) Chronic systolic HF (heart failure) 05/05/2018 Heart valve replaced 05/05/2018 Hypertensive heart and chron ic kidney disease with heart failure and stage 1 through stage 4 chronic kidney disease, or chronic kidney disease 05/05/2018 Obstructive sleep apnea 05/05/2018 Type 2 diabetes mellitus with chronic kidney dis ease 05/05/2018 Pacemaker 10/17/2014 Benign essential hypertension 06/06/2014 Chronic atrial fibrillation 06/06/2014 Aortic valve disorder 06/06/2014 Hyperlipidemia 06/06/2014 Peripheral venous insufficiency 06/06/2014 Hx of adenomatous polyp of colon 12/14/2005 Overview (07/25/2018): small AROLDO (iron deficiency anemia) Overview (05/23/2018): etiology XK CKD (chronic kidney disease) Obesity Melena Resolved Problems Problem Noted Date Diagnosed Date Resolved Date Severe obesity (BMI 35.0-39. 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 07/22/2015 05/30/2018 Atrial flutter 10/17/2014 10/09/2020 Sinoatrial node dysfunction 07/03/2014 11/14/2018 Respiratory symptoms 06/06/2014 018 Shortness of breath 06/06/2014 05/30/20 18 Cardiac conduction disorder 06/06/2014 05/30/2018 Erectile dysfunction 04/13/2014 018 Encounters Date Type Department Care Team Description 10/05/2024 Refill [facility] Primary Care - [address] [place] [address] Ant Meyer MD 10/04/2024 Orders Only [facility] Primary Care - [address] [place] [address] Ant Meyer MD Type 2 diabetes mellitus with stage 3a chronic kidney disease, with long-term current use of insulin ([facility]) 10/03/2024 Abstract [facility] Primary Care - [address] [place] [address] Ant Meyer MD 09/29/2024 Telephone [facility] Primary Care - [address] [place] [address] Ant Meyer MD Patient Communication 09/29/2024 Telephone [facility] Primary Care - [address] [place] [phone] Ant Meyer MD Clinical Consult Before Scheduling 09/18/2024 Telephone [facility] Primary Care - [address] [place] [phone] Ant Meyer MD Clinical Consult Before Scheduling 09/18/2024 Telephone [facility] Primary Care - [address] [place] [phone] Ant Meyer MD Clinical Consult Before Scheduling; Clinical Consult Before Scheduling 09/11/2024 Telephone [facility] Heart and Vascular - [address] [facility] [address] [address] [facility] [address] [place] [address] Timothy Burger MD fall 09/07/2024 External Device Data STL ABSTRACTION Provider, Abstract 09/07/2024 Orders Only [facility] Primary Care - [address] [place] [phone] Ant Meyer MD Type 2 diabetes mellitus with stage 3a chronic kidney disease, with long-term current use of insulin ([facility]) 09/05/2024 Refill [facility] Primary Care - [address] [place] [phone] Ant Meyer MD 09/04/2024 2:00 PM ACQUISITIONS LIBRARIAN Office Visit [facility] Neurology [address] [facility] [address] [facility] [address] [place] [address] Fatoumata Ramesh MD Pre-syncope (Primary Dx); Parkinsonian tremor ([facility]/HCC); Bilateral carotid artery stenosis; Obesity (BMI 30.0-34.9) 07/24/2024 7:00 AM ACQUISITIONS LIBRARIAN Procedure visit [facility] Heart and Vascular - [address] [facility] 202 [address] [facility] [address] [place] [address] SSS (sick sinus syndrome) (CMS/HCC) (Primary Dx); Pacemaker 07/20/2024 Refill [facility] Primary Care - [address] [place] [address] Ant Meyer MD from Last 3 Months Immunizations Immunization Administration Dates Next Due (PREVNAR 13)(6 WKS UP) PNEUM OCOCCAL CONJUGATE (PCV13) 0.5 ML, IM 04/26/2015 (PREVNAR 20)(6 WKS UP) PNEUM OCOCCAL CONJUGATE VACCINE 20-VALENT (PCV20), POLYSACCHARIDE [id number] CONJUGATE, ADJUVANT 0.5 ML (PF) IM 09/01/2023 (SHINGRIX)(50 YRS UP) ZOSTER VACCINE RECOMBINANT, 0.5 ML, IM 08/11/2019 (TDVAX)(7 YRS UP) TETANUS AN D DIPHTHERIA TOXOIDS, ADSORBED (2 LF OF TETANUS TOXOID AND 2 LF OF DIPHTHERIA TOXOID), 0.5ML (PF), IM 12/07/2011 INFLUENZA VACCINE HIGH DOSE QUADRIVALENT 65 YR UP PF IM 06/25/2022,05/10/2020 INFLUENZA VACCINE QUADRIVALE NT 6 MOS UP PF IM 06/07/2017 Influenza Seasonal Unspecifi ed Formulation IM 05/10/2015 Influenza Vaccine High Dose 65+ Yrs IM 9,05/31/2018 Influenza Vaccine Tri Split 4+ Im 07/15/2016,06/2015,06/21/2013 Pneumococcal Polysaccharide Vacc 23-sandhya IM SCHIP 07/29/2017,04/30/2011 Family History Medical History Relation Name Comments No Known Problems Brother Aneurysm Father Heart Disease Mother Hypertension Mother Migraines Mother Relation Name Status Comments Brother Father Mother Social History Tobacco Use Types Packs/Day Years Used Date Smoking Tobacco: Never Smokeless Tobacco: Never Tobacco Cessation:Counseling Given: Not Answered Alcohol Use Standard Drinks/Week Comments No 0 [...] on file Legal Sex Male 3:05 AM ACQUISITIONS LIBRARIAN Gender Identity Not on file Sexual Orientation Not on file 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 Not on file Not on file Not on file Last Filed Vital Signs Vital Sign Reading Time Taken Comments Blood Pressure 128/69 09/04/2024 2:11 PM ACQUISITIONS LIBRARIAN Pulse 78 09/04/2024 2:05 PM ACQUISITIONS LIBRARIAN Temperature 36.1 C (97 F) 01/06/2024 11:41 AM CDT Respiratory Rate 16 08/24/2022 1:00 PM ACQUISITIONS LIBRARIAN Oxygen Saturation 92% 09/04/2024 2:05 PM ACQUISITIONS LIBRARIAN Inhaled Oxygen Concentration - - Weight 107 kg (236 lb) 09/04/2024 2:05 PM ACQUISITIONS LIBRARIAN Height 180.3 cm (5' 11 ) 09/04/2024 2:05 PM ACQUISITIONS LIBRARIAN Body Mass Index 32.92 09/04/2024 2:05 PM ACQUISITIONS LIBRARIAN Plan of Treatment Upcoming Encounters Date Type Department Care Team (Late st Contact Info) Description 10/23/2024 3:30 PM CDT Procedure visit [facility] Heart and Vascular - [address] [facility] [address] [address] [facility] [address] [place] [address] 11/14/2024 11:15 AM CDT Office Visit [facility] Heart and Vascular - [address] [place] [address] Jaime Miner ANP [address] [facility] [address] [place] [address] [place] [address] [facility] [address] [place] [address] 12/05/2024 11:30 AM CDT Office Visit [facility] Neurology [address] [facility] [address] [facility] [address] [place] [address] [place] [address] [facility] [address] [place] [address] 12/26/2024 11:00 AM CDT Appointment [facility] Supp Svcs Blood Flow [address] [place] [address] Johanny Khan, SUSANNA [address] [facility] [address] [place] [address] 12/26/2024 11:45 AM CDT Office Visit [facility] [address] [facility] [address] [place] [address] Johanny Khan, SUSANNA [address] [facility] [address] [place] [address] Jerel Caruso MD [address] [facility] [address] [place] [address] 01/18/2025 1:30 PM CDT Procedure visit [facility] Heart and Vascular - [address] [facility] [address] [address] [facility] [address] [place] [address] Health Maintenance Due Date Last Done Comments DTAP/TDAP/TD VACCINES (1 - Tdap) 12/08/2011 12/07/19 12 RSV VACCINE (60+ or ) (1 - 1-dose 75+ series) 2014 ZOSTER VACCINE (2 of 2) 10/06/2019 08/11/2019 COLORECTAL SCREENING 05/24/2021 05/24/2018, 05/24/20 18 UPPER GI ENDOSCOPY 05/31/2021 05/31/2018, 05/24/2018 DIABETES ANNUAL RETINAL EXAM 09/16/202308/2022, 09/16/2022, 03/11/2021, Additional history exists DIABETES HBA1C Q 6 MONTHS 01/11/20242022, 06/29/2022, 06/29/2022, Additional history exists INFLUENZA VACCINE (#1) 2024 , 05/10/2020, 08/11/2019, Additional history exists COVID-19 Vaccine (2023-2 5 season) 2024 11/13/2020, 10/23/2020 DIABETES MICROALBUMIN ANNUAL SCREEN 07/13/2024 07/13/2023, 06/29/2022, 03/31/2022, Additional history exists DIABETES: A1C (Auto Order) 07/13/202407/13, 06/29/2022, 06/29/2022, Additional history exists LDL CHOLESTEROL ANNUAL 07/13/2024 , 03/31/2022, 12/29/2021, Additional history exists KHE eGFR (Auto Order) 08/16/2024 05/30/2024 , 04/19/2024, 01/06/2024, Additional history exists KHE uACR (Auto Order) 08/16/2024 07/13/2023 , 06/29/2022, 03/31/2022, Additional history exists Medicare Advantage ([place]) Preventative Visit/Annual Wellness Visit 08/16/2024 09/01/2023, 12/29/2021, 05/10/2020 DIABETES ANNUAL FOOT EXAM 01/05/20252023, 09/30/2023, 09/01/2023, Additional history exists PNEUMOCOCCAL VACCINE 65+ YEARS Completed 0 09/01/2023, 07/29/2017, 04/26/2015, Additional history exists Medical Devices Implanted Type Area Piece Meat Trimmer Device Identifier Shelf Expiration Date Model / Serial / Lot Pacemaker [place] Xt Surescan Dr Tang [id number] - [id number] Implanted:Qty: 1 on 08/24/2022 at [facility] Cardiac Pacemaker Left: Chest MEDTR[employer]IC- CRM - BULK BUY 12/28/2023 [id number] / [id number] / Hemostatic Surg Powder 3013sp - Sna Implanted:Qty: 1 on 08/24/2022 at [facility] Hemostatic Chest J[employer]J- [employer] [id number] / NA / Tyrx Antibacterial Envelope Med [id number] - [id number] Implanted:Qty: 1 on 08/24/2022 at [facility] Mesh Left: Chest [employer]- CARD RHYTHM MGMT 05/03/2023 [id number] / / [id number] Accry Iz Ams 800 [id number] - [id number] Implanted:Qty: 1 on 04/13/2014 by Anton Champion MD at [facility] Other N/A: Penis AMS [employer] 03/23/2019 [id number] / / [id number] Pros Penile Spectra Rte 3cm [id number] - [id number] Implanted:Qty: 1 on 04/13/2014 by Anton Champion MD at [facility] Penile N/A: Penis AMS [employer] 06/01/2018 [id number] / / [id number] Description:NO CHARGE Pacer Aortic Valve-Pig Valve Ams Cylinder 21cm W/Pump Implanted:Qty: 1 on 04/13/2014 by Anton Champion MD at [facility] N/A: Scrotum AMS [employer] 02/08/2015 [id number] / / [id number] Ams [place] 100ml Implanted:Qty: 1 on 04/13/2014 by Anton Champion MD at [facility] N/A: Penis AMS [employer] 11/18/2015 [id number] / / [id number] Explanted Type Area Piece Meat Trimmer Device Identifier Shelf Expiration Date Model / Serial / Lot Ams Cylinder Pump And Rte Explanted:Qty: 1 on 04/13/2014 by Anton Champion MD at [facility] N/A: Penis AMS [employer] Description:one 18cm AMS 700 cylinder pump set and two 3.0 rear tip extenders product #: [id number] serial #: [id number] Penile Prosthesis [place] Explanted:Qty: 1 on 07/22/2015 by Anton Champion MD at [facility] N/A: Abdomen Procedures Procedure Name Priority Date/Time Associated Diagnosis Comments PACER ANALYSIS REMOTE, UP TO 90 DAYS Routine 07/23/2024 6:25 PM ACQUISITIONS LIBRARIAN SSS (sick sinus syndrome) (CMS/HCC) Pacemaker COMPREHENSIVE METABOLIC PANEL Routine 04/19/2024 9:10 AM CDT Near syncope MICROALBUMIN/CREATINI NE RATIO, RANDOM UR Routine 07/13/2023 9:46 AM ACQUISITIONS LIBRARIAN LIPID RFLX Routine 07/13/2023 9:46 AM ACQUISITIONS LIBRARIAN Diabetic polyneuropathy associated with type 2 diabetes mellitus (CMS/HCC) Stage 3a chronic kidney disease (CMS/HCC) HEMOGLOBIN A1C Routine 07/13/2023 9:46 AM ACQUISITIONS LIBRARIAN Diabetic polyneuropathy associated with type 2 diabetes mellitus (CMS/HCC) Stage 3a chronic kidney disease (CMS/HCC) DIABETES EYE EXAM Routine 09/16/2022 COLONOSCOPY REPORT 05/24/2018 2: 49 PM CDT from Last 3 Months or Most Recently Relevant to Health Maintenance Results * PACER ANALYSIS REMOTE, UP TO 90 DAYS (07/23/2024 6:25 PM ACQUISITIONS LIBRARIAN) 07/23/2024 6:25 PM ACQUISITIONS LIBRARIAN Narrative INTERFACE SYSTEM - 07/27/2024 4:13 PM ACQUISITIONS LIBRARIAN Mr. Gonzalez had a remote follow up of his Medtronic dual chamber pacemaker. The device is functioning normally. The battery status is stable with an estimated longevity of 11.8 years. The lead impedances are stable. Atrial sensing thresholds are stable. Ventricular pacing and sensing thresholds stable. There were 3 nonsustained VT episode. Stored EGMs showed VT that was self abated. The device is programmed VVIR. He is currently taking Eliquis. 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 Clinic follow up in 3 months. Procedure Note Provider, Historical - 07/27/2024 Mr. Gonzalez had a remote follow up of his Medtronic dual chamberpacemaker. The device is functioning normally. The battery status is stable with an estimated longevity of 11.8years. The lead impedances are stable. Atrial sensing thresholds are stable. Ventricular pacing andsensing thresholds stable. There were 3 nonsustained VT episode. Stored EGMs showed VT that was selfabated. The device is programmed VVIR. He is currently taking Eliquis. 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 Clinic follow up in 3months. us Perez Richardson MD CARDIAC SERVICES ORDERABLE S Final Result Performing Organization Address City/[facility] Co de Phone Number INTERFACE SYSTEM Refer to clinic/hospital department * COMPREHENSIVE METABOLIC PANEL (04/19/2024 9:10 AM CDT) Blood 04/19/2024 9:10 AM CDT us Noel Casey PA-C CHEMISTRY ORDERABLES Final Result Performing Organization Address City/[facility] Co de Phone Number EXTERNAL LAB * LIPID RFLX (07/13/2023 9:46 AM ACQUISITIONS LIBRARIAN) CHOLESTEROL 159 <200 mg/dL [facility] HDL 47 > OR = 40 mg/dL [facility] TRIGLYCERIDE 140 <150 mg/dL [facility] LDL CALCULATED 88 mg/dL (calc) [facility] Comment: Reference range: <100 Desirable range <100 mg/dL for primary prevention; <70 mg/dL for patients with CHD or diabetic patients with > or = 2 CHD risk factors. LDL-C is now calculated using the Kody-Raquel calculation, which is a validated novel method providing better accuracy than the Friedewald equation in the estimation of LDL-C. Kody SS et al. DAVINA. 2013;310(19): 2355-1917 (http://education.tokia.lt/faq/WSX537) CHOL/HDL RATIO 3.4 <5.0 (calc) [facility] TOTAL NON-HDL CHOL(LDL+VLDL) 112 <130 mg/dL (calc) [facility] Comment: For patients with diabetes plus 1 major ASCVD risk factor, treating to a non-HDL-C goal of <100 mg/dL (LDL-C of <70 mg/dL) is considered a therapeutic option. Test Performed at: [facility] [place] [address] Goran Meek MD Blood 07/13/2023 9:46 AM ACQUISITIONS LIBRARIAN 07/13/2023 9:46 AM ACQUISITIONS LIBRARIAN Ant Meyer MD CHEMISTRY ORDERABLES Final Result Performing Organization Address [facility]/ZIP Co de Phone Number [facility] [phone] [facility] [address] * (ABNORMAL) MICROALBUMIN/CREATININE RATIO, RANDOM UR (07/13/2023 9:46 AM ACQUISITIONS LIBRARIAN) Pathologist [facility] Creatinine, Urine 42 20 - 320 mg/dL [facility] MICROALBUMIN, URINE 1.3 See Note: mg/dL [facility] Comment: Reference Range: Reference Range Not established MICROALBUMIN/CREAT RATIO, UR 31(H) <30 mcg/mg creat [facility] Comment: The ADA defines abnormalities in albumin excretion as follows: Albuminuria Category Result (mcg/mg creatinine) Normal to Mildly increased <30 Moderately increased 30-299 Severely increased > OR = 300 The ADA recommends that at least two of three specimens collected within a 3-6 month period be abnormal before considering a patient to be within a diagnostic category. FASTING:YES FASTING: YES Test Performed at: [facility] [address] Goran Meek MD 07/13/2023 9:46 AM ACQUISITIONS LIBRARIAN 07/13/2023 9:46 AM ACQUISITIONS LIBRARIAN Ant Meyer MD URINE ORDERABLES Final Res ult Performing Organization Address City/[facility]/ZIP Co de Phone Number [facility] [phone] [facility] [address] * (ABNORMAL) HEMOGLOBIN A1C (07/13/2023 9:46 AM ACQUISITIONS LIBRARIAN) HEMOGLOBIN A1C 5.7(H) <5.7 % of total Hgb [facility] Comment: For someone without known diabetes, a hemoglobin A1c value between 5.7% and 6.4% is consistent with prediabetes and should be confirmed with a follow-up test. For someone with known diabetes, a value <7% indicates that their diabetes is well controlled. A1c targets should be individualized based on duration of diabetes, age, comorbid conditions, and other considerations. This assay result is consistent with an increased risk of diabetes. Currently, no consensus exists regarding use of hemoglobin A1c for diagnosis of diabetes for children. ESTIMATED AVERAGE GLUCOSE (MG/DL) 117 mg/dL [facility] [place] ESTIMATED AVERAGE GLUCOSE (MMOL/L) 6.5 mmol/L [facility] [place] Comment: FASTING:YES FASTING: YES Test Performed at: [place] [address] [place] [address] Goran [facility] Blood 07/13/2023 9:46 AM ACQUISITIONS LIBRARIAN 07/13/2023 9:46 AM ACQUISITIONS LIBRARIAN Ant Meyer MD CHEMISTRY ORDERABLES Final Result Performing Organization Address [facility]/ZIP [facility] Phone Number [facility] [phone] [place] [address] [place] [address] * HM DIABETES EYE EXAM (09/16/2022) Abstract Provider HEALTH MAINTENANCE Edited Resu lt - Final [facility] - [address] [address] CLIA# [id number] [address] [place] [address] * COLONOSCOPY REPORT (05/24/2018 2:49 PM CDT) Narrative Procedure Note Marvin Montesinos MD - 05/24/2018 2:48 PM CDT [facility] Endoscopy Patient Name: Bigg Gonzalez Procedure Date: 05/24/2018 Date of : 1940 Admit Type: Outpatient Attending MD: Marvin Montesinos MD Procedure: Colonoscopy Indications: Last colonoscopy: December 2005, Iron deficiency anemia Patient Profile: Refer to note in patient chart for documentation of history and physical. Providers: Marvin Montesinos MD Referring MD: Ant Meyer MD Complications: No immediate complications. Estimated blood loss: Minimal. Procedure: Informed consent was obtained for the procedure, including moderate sedation after risks were discussed. Based on the pre-procedure assessment, including review of the patient's medical history, medications, allergies, and review of systems, the patient was deemed to be an appropriate candidate for sedation. A timeout was performed. Continuous ECG monitoring, pulse oximetry, blood pressure monitoring, and direct observation were performed. The Colonoscope was introduced through the anus and advanced to the terminal ileum, with identification of the appendiceal orifice and IC valve. The colonoscopy was technically difficult and complex due to significant looping and a tortuous colon. Successful completion of the procedure was aided by applying abdominal pressure. The patient tolerated the procedure well. The quality of the bowel preparation was adequate to identify polyps. Findings: The perianal and digital rectal examinations were normal. Pertinent negatives include normal prostate (size, shape, and consistency). The terminal ileum appeared normal. Two sessile polyps were found in the transverse colon. The polyps were 8 to 13 mm in size. These polyps were removed with a cold snare. Resection and retrieval were complete. Three polyps were found in the cecum. The polyps were diminutive in size. These polyps were removed with a cold biopsy forceps. Resection and retrieval were complete. A 15 mm polyp was found in the ascending colon. The polyp was sessile. The polyp was removed with a cold snare. Resection and retrieval were complete. Three sessile polyps were found in the ascending colon. The polyps were small in size. These polyps were removed with a cold biopsy forceps. Resection and retrieval were complete. A 11 mm polyp was found in the rectum. The polyp was sessile. The polyp was removed with a cold snare. Resection and retrieval were complete. Diverticula were found in the entire colon. Increased haustrations were found in the sigmoid colon. Non-bleeding internal hemorrhoids were found during retroflexion. The hemorrhoids were moderate. No additional abnormalities were found on retroflexion. A moderate amount of semi-solid stool was found in the sigmoid colon and in the descending colon, without interference to visualization. Lavage of the area was performed using a moderate amount, resulting in clearance with excellent visualization. Impression: - The examined portion of the ileum was normal. - Two 8 to 13 mm polyps in the transverse colon, removed with a cold snare. Resected and retrieved. - Three diminutive polyps in the cecum, removed with a cold biopsy forceps. Resected and retrieved. - One 15 mm polyp in the ascending colon, removed with a cold snare. Resected and retrieved. - Three small polyps in the ascending colon, removed with a cold biopsy forceps. Resected and retrieved. - One 11 mm polyp in the rectum, removed with a cold snare. Resected and retrieved. - Diverticulosis in the entire examined colon. - Haustrations increased. - Non-bleeding internal hemorrhoids. Recommendation: - Discharge patient to home. - Use fiber, for example Citrucel, Fibercon, Konsyl or Metamucil. - Continue present medications. - Await pathology results. - Continue present medications. - see EGD instructions also. - Diet should be low fat, assorted fruits /vegetables, low red meat, hi dietary calcium and folate. - Decrease caffeine i.e. cola, coffee, tea. - Reduce weight to decrease risk of future malignancy. Discuss diet with PCP. - Pathology will determine timing for next colonoscopy. - Call office 2 weeks if not notified results. Marvin Montesinos MD 05/24/2018 2:48:41 PM This report has been signed electronically. Number of Addenda: [id number] [place] [address] Marvin Montesinos MD GI PROCEDURE ORDERABLES Final Result from Last 3 Months or Most Recently Relevant to Health Maintenance Insurance [facility] [id number] RX [employer] Medicare Part D Advance Directives For more information, please contact: [phone] * Full Code (Latest Code Status on File) Date Activated Date Inactivated Comments 05/31/2018 12:50 PM 06/02/2018 8:52 PM * Full Code Date Activated Date Inactivated Comments 05/30/2018 1:56 PM 05/31/2018 12:50 PM * Full Code Date Activated Date Inactivated Comments 07/22/2015 6:06 PM 07/23/2015 11:34 AM * Full Code Date Activated Date Inactivated Comments 07/22/2015 8:19 AM 07/22/2015 6:06 PM * Full Code Date Activated Date Inactivated Comments 04/13/2014 9:35 AM 04/13/2014 7:36 PM Care Teams Employee Benefits Attorney Relationship Specialty Start Date End Date Ant Meyer MD PCP - General Family Practice 03/30/14
--- OUTSIDE RECORDS SUMMARY | 2024-10-06 11:37 | XMS_ITS | Encounter Summary ---
Author Organization [facility] Address 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 Gender Identity Not on file Sexual Orientation Not on file 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 Not on file Not on file Not on file documented as of this encounter Miscellaneous Notes * Telephone Encounter - Pat Diaz LPN - 10/05/2024 4:01 PM DRY BOX OPERATOR 4:01 PM 10/05/2024 Date of last visit addressing condition(s) being treated: 04/12/2024 Date of next visit in this department: Visit date not found Correct Pharmacy: Yes Recent Visits Date Type Provider Dept 04/12/24 Office Visit Noel Casey PA-C [facility] Primary Care [address] [place] [address] 01/06/24 Office Visit Ant Meyer MD [facility] Primary Care [facility] 202 09/30/23 Office Visit Ant Meyer MD [facility] Primary Care [facility] 202 09/01/23 Office Visit Ant Meyer MD [facility] Primary Care [address] [place] [address] 202 Showing recent visits within past 400 days with a meds authorizing provider and meeting all other requirements Future Appointments No visits were found meeting these conditions. Showing future appointments within next 400 days with a meds authorizing provider and meeting all other requirements Pat GILES BOX OPERATOR documented in this encounter Plan of Treatment Upcoming Encounters Date Type Department Care Team (Late st Contact Info) Description 10/23/2024 3:30 PM CDT Procedure visit [facility] Heart and Vascular - [address] [facility] 202 [address] [address] [facility] [address] [place] [address] 11/14/2024 11:15 AM CDT Office Visit [facility] Heart and Vascular - [address] [place] [address] Jaime Miner ANP [address] [address] [place] [address] [place] [address] [facility] [address] [place] [address] 12/05/2024 11:30 AM CDT Office Visit [facility] Neurology [address] [facility] [address] [facility] [address] [place] [address] [place] [address] [facility] [address] [place] [address] 12/26/2024 11:00 AM CDT Appointment [facility] Supp Svcs Blood Flow [address] [place] [id number] Johanny Khan, SUSANNA [address] [facility] [address] [place] [address] 12/26/2024 11:45 AM CDT Office Visit [facility] Special Police Heart [facility] [address] [facility] [address] [place] [address] Johanny Khan, [employer] ARCHITECT [address] [facility] [address] [place] [address] Jerel Caruso MD [address] [facility] [address] [place] [address] 01/18/2025 1:30 PM CDT Procedure visit [facility] Heart and Vascular - [address] [facility] 202 [address] [facility] [address] [place] [address] documented as of this encounter Visit Diagnoses Not on filedocumented in this encounter Care Teams Freight Unloader Relationship Specialty Start Date End Date Ant Meyer MD PCP - General Family Practice 03/30/14 documented as of this encounter
--- OUTSIDE RECORDS SUMMARY | 2024-10-06 11:37 | XMS_ITS | Patient Health Record ---
Author Organization [facility] Address [address] [place] [id number] Care Team Providers Care Food And Beverage Associate Name Role Phone Dr. Ant Meyer Primary Care Provider Joni Berrios Unavailable [phone] REASON FOR REFERRAL No Information MEDICATIONS Medication SIG (Take, Route, Frequency, Duration) Notes Start Date End Date Status Xarelto 20 MG 1 tablet with food O rally Once a day Active glipiZIDE 5 MG 1 tablet Orally Once a day Active Sotalol HCl 80 MG 1 tablet Orally Twic e a day Active Potassium Chloride 10 10 MEQ 1 packet Orally Once a day Active Omeprazole 40 MG 1 capsule Orally Onc e a day Active Aspirin 81 MG 1 tablet Orally Once a day Active oxyBUTYnin Chloride ER 10 MG 1 tablet Orally Once a day Active Atorvastatin Calcium 10 MG 1 tablet Oral ly Once a day Active Furosemide 40 MG 1 tablet Orally Once a day Active SOCIAL HISTORY Sex Assigned At : Social History Observation Description Sex Assigned At Unknown PROBLEMS Problem Type ICD Code Onset Dates Problem Status W/U Status Risk SNOMED Code Notes Problem DEVIN (584.9) Active confirmed Acute alecia l failure syndrome (21290993) Likely due to acute heart failure when he was in the hospital, which has resolved now Problem CKD, 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 Problem CHF (428.0) Active confirmed Congestive heart failure (60029669) Likely due to aortic regurgitation Problem Atrial fibrillation (427.31) Active confirmed Atrial fibrillation (25428988) PLAN OF TREATMENT No Information Insurance Providers Payer Name Payer Address Payer Phone Subscriber Number Group Number Insured Name Patient Relationship to Insured Coverage Start Date Coverage End Date Medicare Part B [address] [place] [id number] [id number] Bigg Veloz Self - patient is the insured Makeda Canas [address] [place], [place] [id number] Bigg Veloz Self - patient is the insured MEDICAL (GENERAL) HISTORY Medical History History ICD Code Aortic stenosis: aortic valve replacemen t, porcine - 2007, Dr. Kuhn Aortic regurgitation Diabetes Hypertension Hyperlipidemia Gerd Hiatal hernia Atrial fibrillation DEVIN Surgical History Surgery Date(Month/Year) Bioprosthetic aortic valve replacement Cardioversion Hospitalization History Reason Date(Month/Year) Aortic valve replacement Chest discomfort April 2015
--- OUTSIDE RECORDS SUMMARY | 2024-10-06 11:38 | XMS_ITS | Clinical Summary ---
Author Organization [id number] Address [address] [place] [address] Phone Care Team Providers Care Patient Care Provider Name Role Phone Ant Meyer MD Primary Care Provider [phone] Wilmer Sanchez MD Unavailable [phone] Williams Chavarria MD Unavailable [phone] Allergies Active Allergy Reactions Criticality Noted Date [...] 04/15/2021 Assessment & Plan (10/13/2021 10:00 AM TANDEM MILL STICKER): Continues to note numbness and tingling in [...] worsen. Assessment & Plan (10/13/2021 9:57 AM TANDEM MILL STICKER): L-spine x-ray 04/2021: Moderate lumbar facet OA, mild thoracolumbar scoliosis As discussed above, primary issue is persistent chronic lower back pain. PT previously worsened symptoms. Continues to defer injections per pain management. Could reconsider this if symptoms worsen. Assessment & Plan (07/15/2021 12:36 PM TANDEM MILL STICKER): L-spine x-ray 04/2021: Moderate lumbar facet OA, [...] C6 Assessment & Plan (10/03/2019 11:22 AM TANDEM MILL STICKER): Xray C spine 06/02/2019: mild loss of anterior vertebral height of C6 Patient continues to defer PT. Could reconsider this if symptoms worsen. Assessment & Plan (08/01/2019 11:00 AM TANDEM MILL STICKER): Xray C spine 06/02/2019: mild loss of [...] prednisone. Assessment & Plan (08/04/2022 10:00 AM TANDEM MILL STICKER): Prior CT hip without contrast 11/2020 revealed [...] tapering Assessment & Plan (10/13/2021 9:56 AM TANDEM MILL STICKER): Suspect this is contributing to some of his residual chronic pain complaints. Prior CT hip without contrast 11/2020 revealed mild right hip CPPD arthropathy, advanced pubic symphysis CPPD arthropathy. CPPD crystals seen on prior right knee fluid analysis, as well. Continue prednisone 3 mg daily, as joint symptoms do exacerbate with tapering Assessment & Plan (07/15/2021 12:35 PM TANDEM MILL STICKER): Suspect this is contributing to some of [...] daily. Assessment & Plan (10/03/2020 10:18 AM TANDEM MILL STICKER): Suspect this is contributing to some of his chronic pain complaints, primarily in the right knee and posterior hip. CPPD crystals seen on prior right knee fluid analysis. Currently on prednisone 3 mg daily. Taper, as discussed above. Assessment & Plan (07/04/2020 12:08 PM TANDEM MILL STICKER): Suspect this is contributing to some of [...] above. Assessment & Plan (10/03/2019 11:22 AM TANDEM MILL STICKER): Calcium pyrophosphate crystals seen on right knee fluid analysis few visits prior. Denies any new pain, swelling, or stiffness. Increase prednisone to 4 mg daily, as above. Assessment & Plan (08/01/2019 10:59 AM TANDEM MILL STICKER): Calcium pyrophosphate crystals seen on right knee [...] complaints. Assessment & Plan (08/04/2022 10:01 AM TANDEM MILL STICKER): He received a left knee intra-articular ultrasound-guided [...] extremity, which prompted him to go to [facility] for further evaluation. Had right knee aspiration [...] and notable swelling/tenderness. Will obtain records from [facility]. Fu 4 weeks. Sooner if needed. Seen [...] MRI Assessment & Plan (10/13/2021 9:56 AM TANDEM MILL STICKER): Recent x-ray 07/05/2020: Mild right hip OA [...] MRI Assessment & Plan (07/15/2021 12:37 PM TANDEM MILL STICKER): Recent x-ray 07/05/2020: Mild right hip OA [...] MRI Assessment & Plan (10/03/2020 10:17 AM TANDEM MILL STICKER): Recent x-ray 07/05/2020: Mild right hip OA Prior radiographs in 2017 displayed evidence for CPPD in the right hip. Following with Dr. Chavarria, orthopedics. He did receive R hip intra-articular injection per orthopedics after last visit, although notes that this only offered benefit for 2 days. Is scheduling a follow up with ortho. Continues to defer PT. Assessment & Plan (07/04/2020 12:08 PM TANDEM MILL STICKER): Primary complaint continues to be persistent pain [...] OA. Assessment & Plan (07/04/2020 12:09 PM TANDEM MILL STICKER): X-ray 09/30/2018 displayed mild AC OA Suspect [...] worsen. 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 Recheck in two years. Assessment & Plan (11/10/2022 9:34 AM CDT): DEXA 04/08/2021: L-spine-1.3 (osteopenia) left femoral neck-0.4, left total hip 0.2, right femoral neck-0.5, right total hip -0.1; normal; FRAX 7/2 Assessment & Plan (08/04/2022 10:02 AM TANDEM MILL STICKER): DEXA 04/08/2021: L-spine-1.3 (osteopenia) left femoral neck-0.4, left total hip 0.2, right femoral neck-0.5, right total hip -0.1; normal; FRAX 7/2 Recheck in 2 years Assessment & Plan (01/05/2022 9:27 AM CDT): DEXA 04/08/2021: L-spine-1.3 (osteopenia) left femoral neck-0.4, left total hip 0.2, right femoral neck-0.5, right total hip -0.1; normal; FRAX 7/2 Recheck in 2 years Assessment & Plan (10/13/2021 9:57 AM TANDEM MILL STICKER): DEXA 04/08/2021: L-spine-1.3 (osteopenia) left femoral neck-0.4, left total hip 0.2, right femoral neck-0.5, right total hip -0.1; normal; FRAX 7/2 Recheck in 2 years Assessment & Plan (07/15/2021 12:37 PM TANDEM MILL STICKER): DEXA 04/08/2021: L-spine-1.3 (osteopenia) left femoral neck-0.4, [...] supplementation. Assessment & Plan (09/26/2018 12:38 PM TANDEM MILL STICKER): Patient did not obtain DEXA scan ordered at last visit. Obtain at this time. Continue [id number] calcium and vitamin-D supplementation. Assessment & Plan (08/23/2018 4:32 PM TANDEM MILL STICKER): Continue otc calcium and vitamin D. Proceed with dexa scan. Assessment & Plan (07/05/2018 12:41 PM TANDEM MILL STICKER): Denies any recent dexa. Will obtain, as is on superintendent container terminal steroids. Advised OTC calcium and vit d supplementation. Encounter for long-term (current) use of medicat ions 07/05/2018 Assessment & Plan (11/10/2022 9:33 AM CDT): Routine labs today. Assessment & Plan (08/04/2022 10:00 AM TANDEM MILL STICKER): Routine labs today. Assessment & Plan (01/05/2022 9:27 AM CDT): Routine labs today. Assessment & Plan (10/13/2021 9:57 AM TANDEM MILL STICKER): Routine labs today. Assessment & Plan (07/15/2021 12:36 PM TANDEM MILL STICKER): Routine labs today. Assessment & Plan (04/15/2021 12:19 PM CDT): Routine labs today. Assessment & Plan (01/02/2021 9:28 AM CDT): Routine labs today. Assessment & Plan (10/03/2020 10:18 AM TANDEM MILL STICKER): Routine labs today. Assessment & Plan (07/04/2020 12:08 PM TANDEM MILL STICKER): Routine labs today. Assessment & Plan (04/03/2020 11:48 AM CDT): Routine labs today. Assessment & Plan (12/26/2019 11:21 AM CDT): Routine labs today. Assessment & Plan (11/14/2019 10:05 AM CDT): Routine labs in 2-4 weeks. Assessment & Plan (10/03/2019 11:22 AM TANDEM MILL STICKER): Routine labs today. Assessment & Plan (08/01/2019 11:00 AM TANDEM MILL STICKER): Routine labs today. Assessment & Plan (06/01/2019 [...] today. Assessment & Plan (09/26/2018 12:39 PM TANDEM MILL STICKER): Routine labs today. Assessment & Plan (08/23/2018 4:32 PM TANDEM MILL STICKER): Routine labs today. Assessment & Plan (07/05/2018 12:45 PM TANDEM MILL STICKER): Routine labs today. Acute blood loss anemia [...] needed Assessment & Plan (08/04/2022 9:59 AM TANDEM MILL STICKER): Overall, has done very well since last [...] needed. Assessment & Plan (10/13/2021 9:55 AM TANDEM MILL STICKER): Overall, has done fairly well since last [...] needed. Assessment & Plan (07/15/2021 12:34 PM TANDEM MILL STICKER): He again did try to taper off [...] needed. Assessment & Plan (10/03/2020 10:16 AM TANDEM MILL STICKER): Since last visit, patient has remained on [...] needed. Assessment & Plan (07/04/2020 12:07 PM TANDEM MILL STICKER): Continues to deny significant shoulders girdle discomfort. [...] needed. Assessment & Plan (10/03/2019 11:22 AM TANDEM MILL STICKER): Since last visit, patient increased prednisone to [...] needed. Assessment & Plan (08/01/2019 10:59 AM TANDEM MILL STICKER): Since last visit, patient has tapered prednisone [...] off. Assessment & Plan (09/26/2018 12:41 PM TANDEM MILL STICKER): Patient notes that shoulder girdle/proximal upper extremity [...] therapy. Assessment & Plan (08/23/2018 4:31 PM TANDEM MILL STICKER): Patient had some confusion with prednisone tapering, [...] needed. Assessment & Plan (07/05/2018 12:39 PM TANDEM MILL STICKER): Full resolution of symptoms with prednisone 20 [...] (CMS/HCC) 05/05/2018 Chronic systolic HF (heart failure) ([facility]/HCC) S/P AVR (aortic valve replacement) 12/14/2014 CAD (coronary artery disease) 12/04/2014 (aortic stenosis) 12/04/2014 Pacemaker 10/17/2014 SSS (sick sinus syndrome) ([facility]) 06/27/2014 Peripheral venous insufficiency 06/06/2014 Hyperlipidemia 06/06/2014 Benign essential hypertension 06/06/2014 Assessment & Plan (01/20/2023 4:19 PM CDT): Impression: Chronic stable hypertension. Plan: Continue amlodipine and metoprolol. 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 Endocarditis, subacute 08/04/2011 Immunizations Immunization Administration [...] on file Sexual Orientation Not on file Obstetrics History Last Filed Vital Signs Vital Sign Reading Time Taken Comments Blood Pressure 140/87 12/30/2022 1:10 PM CDT Pulse 83 12/30/2022 1:10 PM CDT Temperature 36.4 C (97.6 F) 10/13/2021 9:17 AM TANDEM MILL STICKER Respiratory Rate - - Oxygen Saturation 94% 11/10/2022 9:12 AM CDT Inhaled Oxygen Concentration - - Weight 113.4 kg (250 lb) 01/20/2023 2:47 PM CDT Height 180.3 cm (5' 11 ) 01/20/2023 2:47 PM CDT Body Mass Index 34.87 01/20/2023 2:47 PM CDT Plan of Treatment Health Maintenance Due Date Last Done Comments Albumin Creatinine Ratio, Urine 1940 Depression Screening 1939 Fall Risk Assessment 1939 Hemoglobin A1C 1939 Dilated Eye Exam 1939 Foot Exam 1939 Hepatitis B Screening 1957 Well Visit 65+ 2004 DTaP/Tdap/Td Vaccine (1 - Tdap) 12/08/2011 2 Zoster Vaccine (2 of 2) 10/06/2019 08/11/2019 Lipid Panel 05/10/2021 05/10/2020 eGFR 08/04/2023 08/04/2022, 12/15, 10/13/2021, Additional history exists Covid-19 Vaccine (3 - 2023-2 5 season) 2024 11/13/2020, 10/23/2020 Influenza Vaccine (#1) 2024 , 08/11/2019, 05/31/2018, Additional history exists Pneumococcal vaccine 65+ Completed 017, 04/26/2015, 04/30/2011 Procedures Procedure Name Priority Date/Time Associated Diagnosis Comments COMPREHENSIVE METABOLIC PANEL Routine 08/04/2022 9:37 AM TANDEM MILL STICKER Polymyalgia rheumatica ([facility]) ([facility]) Encounter for long-term (current) use of medications from Last 3 Months or Most Recently Relevant to Health Maintenance Results * (ABNORMAL) Comprehensive metabolic panel (08/04/2022 9:37 AM TANDEM MILL STICKER) Glucose 116(H) 65 - 99 mg/dL [facility] Comment: Fasting reference interval For someone without known diabetes, a glucose value between 100 and 125 mg/dL is consistent with prediabetes and should be confirmed with a follow-up test. BUN 21 7 - 25 mg/dL [facility] Creatinine 1.15 0.70 - 1.22 mg/dL [facility] eGFR 63 > OR = 60 mL/min/1. 73m2 [facility] Comment: The eGFR is based on the CKD-EPI 2020 equation. To calculate the new eGFR from a previous Creatinine or Cystatin C result, go to https://www.kidney.org/professionals/ kdoqi/gfr%5Fcalculator BUN/creat ratio NOT APPLICABLE 6 (calc) [facility] Sodium 140 135 - 146 mmol/L [facility] Potassium, pl 3.9 3.5 - 5.3 mmol/L [facility] Chloride 100 98 - 110 mmol/L [facility] CO2 29 20 - 32 mmol/L [facility] Calcium 9.7 8.6 - 10.3 mg/dL [facility] Protein, sr 7.0 6.1 - 8.1 g/dL [facility] Albumin 4.3 3.6 - 5.1 g/dL [facility] GLOBULIN 2.7 1.9 - 3.7 g/dL (calc) [facility] Alb/glob ratio 1.6 1.0 - 2.5 (calc) [facility] Bilirubin, total 0.7 0.2 - 1.2 mg/dL [facility] Alk phos 95 35 - 144 U/L [facility] AST 15 10 - 35 U/L [facility] ALT (SGPT) 15 9 - 46 U/L [facility] Blood 08/04/2022 9:37 AM TANDEM MILL STICKER 08/04/2022 9:38 AM TANDEM MILL STICKER Marvin FELICIANO LAB BLOOD ORDERABLES nal Result QUE[facility] [id number] [phone] from Last 3 Months or Most Recently Relevant to Health Maintenance Insurance MEDICARE SOLUTIONS MEDICARE [facility] MEDICARE SOLUTIONS MEDICARE SOLUTIONS Care Teams Patient Care Provider Relationship Specialty Start Date End Date Ant Meyer MD [address] [facility] [address] [place] [address] PCP - General Family Medicine 05/18/18 Wilmer Sanchez MD [address] [facility] [address] [place] [address] Consulting Physician Rheumatology 05/18/18 Williams Chavarria MD [address] [place] [address] Referring Physician Orthopedic Surgery 01/02/21
--- OUTSIDE RECORDS SUMMARY | 2024-10-06 11:38 | XMS_ITS | Encounter Summary ---
Author Organization [facility] Address 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 Gender Identity Not on file Sexual Orientation Not on file documented as of this encounter Plan of Treatment Upcoming Encounters Date Type Department Care Team (Late st Contact Info) Description 10/23/2024 3:30 PM CDT Procedure visit [facility] Heart and Vascular - [address] [facility] [address] [facility] [address] [place] [phone] 11/14/2024 11:15 AM CDT Office Visit [facility] Heart and Vascular - [address] [place] [address] Jaime Miner ANP [address] [facility] [address] [place] [address] [place] [address] [facility] [address] [place] [address] 12/05/2024 11:30 AM CDT Office Visit [facility] Neurology [address] [facility] [address] [facility] [address] [place] [phone] [place] [address] [facility] [address] [place] [address] 12/26/2024 11:00 AM CDT Appointment [facility] Blood Flow [address] [place] [phone] Johanny Khan APN [address] [facility] [address] [place] [address] 12/26/2024 11:45 AM CDT Office Visit [facility] Cashiers Supervisor Heart [facility] [address] [facility] [address] [place] [address] Johanny Khan APN [address] [facility] [address] [place] [address] Jerel Caruso MD [address] [facility] [address] [place] [address] 01/18/2025 1:30 PM CDT Procedure visit [facility] Heart and Vascular - [address] [facility] [address] [facility] [address] [place] [address] documented as of this encounter Visit Diagnoses Diagnosis Impotence of organic origin- Primary documented in this encounter Care Teams Stripper And Taper Relationship Specialty Start Date End Date Ant Meyer MD PCP - General Family Practice 03/30/14 documented as of this encounter
--- OUTSIDE RECORDS SUMMARY | 2024-10-06 11:38 | XMS_ITS | Referral Summary ---
Author Organization [facility] [employer] Address [address] [place] [address] Care Team Providers Care Supervisor Dental Laboratory Name Role Phone Ant Meyer MD Primary Care Provider [phone] Source Comments [facility] [employer],non-owned Affiliates and Associated Physician Practices is amultiple site organization consisting of ambulatory clinics and hospital sitesin [place], [place], [place] and [place]. This disclosure is being madepursuant to the Care Everywhere program and may not contain all information available regarding this patient. Last updated 18.[employer] Allergies No known active allergies Medications * Be aware that medications may not be up to date on this document. Alwaysverify current medications with the patient. Medication Sig Dispensed Refills Start Date End Date Status glipiZIDE (GLUCOTROL) 5 MG tablet Take 5 mg by mouth 2 times daily before meals. Active metformin ER 24hr (GLUCOPHAGE XR) 500 MG tablet Take 500 mg by mouth daily with dinner. Active oxybutynin CR 24hr (DITROPAN-XL) 10 MG tabletIndications:Ur inary Frequency Take 10 mg by mouth at bedtime. Indications: Frequent Urination Active allopurinol (ZYLOPRIM) 300 MG tabletIndications:Pr imary Gout Take 300 mg by mouth once daily. Indications: Primary Gout Active omeprazole (PRILOSEC) 40 MG capsuleIndications:G ERD-Related Laryngitis (Inactive) Take 40 mg by mouth daily before breakfast. Indications: GERD-Related Laryngitis Active metoprolol succinate XL 24hr (TOPROL XL) 50 MG tabletIndications:Galan praventricular Cardiac Arrhythmia Take 50 mg by mouth once daily. Indications: Supraventricular Cardiac Arrhythmia Active amLODIPine (NORVASC) 5 MG tabletIndications:Hy pertension Take 5 mg by mouth once daily. Indications: High Blood Pressure Active amiodarone (CORDARONE) 200 MG tabletIndications:At rial Fibrillation Take 200 mg by mouth once daily. Indications: Atrial Fibrillation Active potassium chloride (KLOR-CON) 10 MEQ tabletIndications:Hy pertension Take 10 mEq by mouth 2 times daily. Indications: High Blood Pressure Active gemfibrozil (LOPID) 600 MG tabletIndications:Ty pe IV Hyperlipidemia Take 600 mg by mouth 2 times daily before meals. 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 Endocarditis, subacute 08/04/2011 Social History Tobacco Use Types Packs/Day Years Used Date Smoking Tobacco: Never Alcohol Use Standard Drinks/Week Comments Not Asked 0 (1 standard drink = 0.6 oz pur e alcohol) Sex and Gender Information Value Date Recorded Sex Assigned at Not on file Gender Identity Not on file Sexual Orientation Not on file Last Filed Vital Signs Vital Sign Reading Time Taken Comments Blood Pressure 145/93 08/08/2011 5:36 PM ASIC ENGINEER Pulse 84 08/08/2011 5:36 PM ASIC ENGINEER Temperature 36.6 C (97.8 F) 08/08/2011 5:36 PM ASIC ENGINEER Respiratory Rate 18 08/08/2011 5:36 PM ASIC ENGINEER Oxygen Saturation 97% 08/08/2011 5:36 PM ASIC ENGINEER Inhaled Oxygen Concentration - - Weight 119.7 kg (264 lb) 08/05/2011 10:45 AM ASIC ENGINEER Height 180.3 cm (5' 11 ) 08/05/2011 10:45 AM ASIC ENGINEER Body Mass Index 36.82 08/05/2011 10:45 AM ASIC ENGINEER Plan of Treatment Not on file Advance Directives * FULL RESUSCITATION (Latest Code Status on File) Date Activated Date Inactivated Comments 08/05/2011 7:44 AM 08/09/2011 10:20 AM Care Teams Supervisor Dental Laboratory Relationship Specialty Start Date End Date Ant Meyer MD [address] [place] [phone] PCP - General Family Medicine 01/09/22
--- OUTSIDE RECORDS SUMMARY | 2024-10-06 11:38 | XMS_ITS | Encounter Summary ---
Author Organization [facility] Address [address] [place] [address] Care Team Providers Care Cutter First Name Role Phone Ant Meyer MD Primary Care Provider [phone] Encounter Details Date Type Department Care Team (Latest Contact Info) Description 12/22/2001 Outpatient Historical [facility] William Quintana MD [address] [facility] [address] [place], [place] [id number] MALFUNC DEV/GRAFT NEC (Primary Dx) Social History Tobacco Use Types Packs/Day Years Used Date Smoking Tobacco: Never Assessed Sex and Gender Information Value Date Recorded Sex Assigned at Not on file Legal Sex Male 3:05 AM HAM TRIMMER Gender Identity Not on file Sexual Orientation Not on file documented as of this encounter Plan of Treatment Upcoming Encounters Date Type Department Care Team (Late st Contact Info) Description 10/23/2024 3:30 PM CDT Procedure visit [facility] Heart and Vascular - [address] [facility] 202 [address] [facility] [address] [place] [phone] 11/14/2024 11:15 AM CDT Office Visit [facility] Heart and Vascular - [address] [place] [address] Jaime Miner ANP [address] [facility] [address] [place] [address] [place] [address] [facility] [address] [place] [address] 12/05/2024 11:30 AM CDT Office Visit [facility] Neurology [address] [facility] [address] [facility] [address] [place] [phone] [place] [address] [facility] [address] [place] [address] 12/26/2024 11:00 AM CDT Appointment [facility] Blood Flow [address] [place] [phone] Johanny Khan APN [address] [facility] [address] [place] [address] 12/26/2024 11:45 AM CDT Office Visit [facility] Back End Developer Heart [facility] [address] [facility] [address] [place] [address] Johanny Khan APN [address] [facility] [address] [place] [address] Jerel Caruso MD [address] [facility] [address] [place] [address] 01/18/2025 1:30 PM CDT Procedure visit [facility] Heart and Vascular - [address] [facility] 202 [address] [facility] [address] [place] [address] documented as of this encounter Visit Diagnoses Diagnosis Mechanical complication of genitourinary device, implant, and graft, other- Primary documented in this encounter Care Teams Cutter First Relationship Specialty Start Date End Date Ant Meyer MD PCP - General Family Practice 03/30/14 documented as of this encounter
--- OUTSIDE RECORDS SUMMARY | 2024-10-06 11:38 | XMS_ITS | Patient Health Summary ---
Author Organization [facility] Address [address] [place] [address] Care Team Providers Care Surgical Consultant Name Role Phone Ant Meyer MD Primary Care Provider [phone] [facility],non-owned Affiliates and Associated Physician Practices is amultiple site organization consisting of ambulatory clinics and hospital sitesin [place], [place], [place] and [place]. This disclosure is being madepursuant to the Care Everywhere program and may not contain all information available regarding this patient. Last updated 18.[facility] SeeMore Interactive Allergies No known active allergies Medications * Be aware that medications may not be up to date on this document. Alwaysverify current medications with the patient. * glipiZIDE (GLUCOTROL) 5 MG tablet Take 5 mg by mouth 2 times daily before meals. * metformin ER 24hr (GLUCOPHAGE XR) 500 MG tablet Take 500 mg by mouth daily with dinner. * oxybutynin CR 24hr (DITROPAN-XL) 10 MG tablet Take 10 mg by mouth at bedtime. Indications: Frequent Urination * allopurinol (ZYLOPRIM) 300 MG tablet Take 300 mg by mouth once daily. Indications: Primary Gout * omeprazole (PRILOSEC) 40 MG capsule Take 40 mg by mouth daily before breakfast. Indications: GERD-Related Laryngitis * metoprolol succinate XL 24hr (TOPROL XL) 50 MG tablet Take 50 mg by mouth once daily. Indications: Supraventricular Cardiac Arrhythmia * amLODIPine (NORVASC) 5 MG tablet Take 5 mg by mouth once daily. Indications: High Blood Pressure * amiodarone (CORDARONE) 200 MG tablet Take 200 mg by mouth once daily. Indications: Atrial Fibrillation * potassium chloride (KLOR-CON) 10 MEQ tablet Take 10 mEq by mouth 2 times daily. Indications: High Blood Pressure * gemfibrozil (LOPID) 600 MG tablet Take 600 mg by mouth 2 times daily before meals. Indications: Type IV Hyperlipidemia Active Problems Problem Noted Date Diagnosed Date [...] Comments Blood Pressure 145/93 08/08/2011 5:36 PM TRAINING CONSULTANT Pulse 84 08/08/2011 5:36 PM TRAINING CONSULTANT Temperature 36.6 C (97.8 F) 08/08/2011 5:36 PM TRAINING CONSULTANT Respiratory Rate 18 08/08/2011 5:36 PM TRAINING CONSULTANT Oxygen Saturation 97% 08/08/2011 5:36 PM TRAINING CONSULTANT Inhaled Oxygen Concentration - - Weight 119.7 kg (264 lb) 08/05/2011 10:45 AM TRAINING CONSULTANT Height 180.3 cm (5' 11 ) 08/05/2011 10:45 AM TRAINING CONSULTANT Body Mass Index 36.82 08/05/2011 10:45 AM TRAINING CONSULTANT Procedures * MRI BRAIN WO CONTRAST(Performed 08/26/2011) Performed for Acute endocarditis, unspecified (HCC), Syncope and collapse * CARDIAC RHYTHM STRIP ORDER(Performed 08/12/2011) * IP CONSULT TO HOME HEALTH CARE(Performed 08/08/2011) * IP CONSULT TO HOME HEALTH CARE(Performed 08/08/2011) * IP CONSULT TO HOME HEALTH CARE(Performed 08/07/2011) * IP CONSULT TO HOME HEALTH CARE(Performed 08/07/2011) * GLUCOSE - POINT OF CARE(Performed 08/07/2011) * BASIC METABOLIC PANEL (CALCIUM TOTAL)(Performed 08/07/2011) * CBC W/O DIFFERENTIAL(Performed 08/07/2011) * GLUCOSE - POINT OF CARE(Performed 08/06/2011) * XR CHEST 1VW(Performed 08/06/2011) Performed for Fitting and adjustment of vascular catheter * IP CONSULT TO CARDIOTHORACIC SURGERY(Performed 08/06/2011) * GLUCOSE - POINT OF CARE(Performed 08/06/2011) * ERYTHROCYTE SEDIMENTATION RATE(Performed 08/06/2011) * C-REACTIVE PROTEIN(Performed 08/06/2011) * CBC W AUTO DIFFERENTIAL(Performed 08/06/2011) * GLUCOSE - POINT OF CARE(Performed 08/06/2011) * URINALYSIS REFLEX TO MICROSCOPIC NO CULTURE(Performed 08/06/2011) * XR RIBS BILAT 3VW(Performed 08/05/2011) Performed for Acute endocarditis, unspecified (HCC) * IP CONSULT TO NUTRITIONAL SERV(Performed 08/05/2011) * ECHOCARDIOGRAM 2D WITH DOPPLER(Performed 08/05/2011) Performed for Acute endocarditis, unspecified (HCC), Endocarditis of prosthetic valve (HCC) * ECHOCARDIOGRAM TRANSESOPHAGEAL(Performed 08/05/2011) Performed for Acute endocarditis, unspecified (HCC), Endocarditis of prosthetic valve (HCC) * C-REACTIVE PROTEIN(Performed 08/05/2011) * ERYTHROCYTE SEDIMENTATION RATE(Performed 08/05/2011) * LDH BLOOD(Performed 08/05/2011) * IP CONSULT TO INFECTIOUS DISEASES(Performed 08/05/2011) * CULTURE BLOOD(Performed 08/04/2011) * GLUCOSE - POINT OF CARE(Performed 08/04/2011) * XR CHEST 2VW(Performed 08/04/2011) Performed for Endocarditis of prosthetic valve (HCC) * COMPREHENSIVE METABOLIC PANEL(Performed 08/04/2011) * CBC W AUTO DIFFERENTIAL(Performed 08/04/2011) * CULTURE BLOOD(Performed 08/04/2011) * CULTURE BLOOD(Performed 08/04/2011) * EKG 12-LEAD(Performed 08/04/2011) Performed for Endocarditis of prosthetic valve (HCC) * GROSS + MICRO EXAM(Performed 03/02/2007) Results * MRI BRAIN NON CONTRAST (08/26/2011 5:29 PM TRAINING CONSULTANT) Anatomical Region Laterality Modality Head Magnetic Resonan ce Angiography 08/26/2011 8:12 PM TRAINING CONSULTANT Impressions 08/26/2011 8:12 PM TRAINING CONSULTANT Chronic ischemic changes Narrative 08/26/2011 8:12 PM TRAINING CONSULTANT MRI brain without contrast Clinical: Acute endocarditis Fatigue and malaise Technique: Multiplanar, multisequential MR images of the brain without contrast. Findings: There is scattered chronic white matter and brainstem chronic ischemic change. There are old bilateral basal ganglia and external capsule lacunar infarcts. Old lacunar infarcts are present in the left midbrain, isaac and right cerebellum. There is no diffusion restriction, mass effect or midline shift. Procedure Note Kaylee Godinez MD - 08/26/2011 MRI brain without contrast Clinical: Acute endocarditis Fatigue and malaise Technique: Multiplanar, multisequential MR images of the brain without contrast. Findings: There is scattered chronic white matter and brainstem chronic ischemic change. There are old bilateral basal ganglia and external capsule lacunar infarcts. Old lacunar infarcts are present in the left midbrain, isaac and right cerebellum. There is no diffusion restriction, mass effect or midline shift. IMPRESSION Chronic ischemic changes Brooks Burnett MD MR ORDERABLES * CARDIAC RHYTHM STRIP ORDER (08/12/2011 6:49 AM TRAINING CONSULTANT) Narrative Transcriptions Document, Scanned - 08/12/2011 6:49 AM CST Scanned Document CARDIAC SERVICES ORD ERABLES * IP CONSULT TO HOME CARE (08/08/2011 9:55 AM TRAINING CONSULTANT) Only the most recent of4 resultswithin the time period is included. Narrative Merari Pepper LPN - 08/08/2011 9:55 AM TRAINING CONSULTANT Merari Pepper LPN 08/08/2011 9:55 AM Home care consult noted. Patient has been set up with [facility] for nursing and [facility] for iv medication. Patient will need to stay for dose evening dose tonight and will start care in the morning. Thank you for the referral Avelina Pepper LPN [employer] [phone] option 1 Procedure Note Merari Pepper LPN - 08/08/2011 9:41 AM CST Home care consult noted. Patient has been set up with [facility] Home care fornursing and [facility] for iv medication. Patient will need to stay fordose evening dose tonight and will start care in the morning. Thank you for the referral Avelina Pepper LPN [employer] [phone] option 1 Brooks Burnett MD INPATIENT ANCILLARY CONSULT * (ABNORMAL) GLUCOSE - POINT OF CARE (08/07/2011 8:00 AM TRAINING CONSULTANT) Only the most recent of5 resultswithin the time period is included. Pathologist [facility] Glucose WB/POC 153(H) 70 - 110 mg/dl [facility] BLOOD SPECIMEN / Unknown 08/07/2011 8:00 AM TRAINING CONSULTANT 08/09/2011 2:53 AM TRAINING CONSULTANT Brooks Burnett MD LAB - POINT OF CARE ORDERABLES Performing Organization Address [facility] de Phone Number [facility] [address] [place] [phone] * (ABNORMAL) CBC W/O DIFFERENTIAL (08/07/2011 5:03 AM TRAINING CONSULTANT) [facility] WBC 8.9 4.0 - 10.0 K/CUMM [facility] RBC 3.99(L) 4.40 - 6.40 M/CUMM [facility] Hemoglobin 11.9(L) 13.5 - 18.0 gm/dL [facility] Hematocrit 36.0(L) 40.0 - 54.0 % [facility] MCV 90.2 80.0 - 100.[address] [facility] MCH 29.8 26.0 - 34.[address] [facility] MCHC 33.1 31.0 - 37.0 gm/dL [facility] RDW 13.1 11.5 - 14.5 % [facility] Platelet Count 169 150 - 400 K/CUMM [facility] Blood specimen (specimen) BLOOD SPECIMEN / Unknown 08/07/2011 5:03 AM TRAINING CONSULTANT 08/07/2011 5:48 AM TRAINING CONSULTANT Brooks Burnett MD LAB - HEMATOLOGY ORD ERABLES Performing Organization Address [facility] de Phone Number [facility] [address] [place] [address] * (ABNORMAL) BASIC METABOLIC PANEL (CALCIUM TOTAL) (08/07/2011 5:03 AM TRAINING CONSULTANT) Pathologist [facility] Sodium 140 136 - 145 mmol/L [facility] Potassium 3.7 3.5 - 5.1 mmol/L [facility] Chloride 105 98 - 107 mmol/L [facility] BUN 18 7 - 21.0 mg/dl [facility] Creatinine 1.15 0.5 - 1.3 mg/dl [facility] Glucose 66(L) 75 - 110 mg/dl [facility] CO2 24 22 - 30 mmol/L [facility] Calcium 9.0 8.5 - 10.1 mg/dl [facility] eGFR by MDRD >60 Not applicable >70 yrs old mL/min/1.73m2 [facility] Comment eGFR [facility] Comment: The eGFR does not apply to patients who are younger than 18 or older than 70. Blood specimen (specimen) BLOOD SPECIMEN / Unknown 08/07/2011 5:03 AM TRAINING CONSULTANT 08/07/2011 5:48 AM TRAINING CONSULTANT Brooks Burnett MD LAB - CHEMISTRY ANAHI [facility] Organization Address City/State/[facility] Co de Phone Number [facility] [address] [place] [address] * XR CHEST PA OR AP (08/06/2011 4:00 PM TRAINING CONSULTANT) Anatomical Region Laterality Modality Chest Radio Fluoroscop y 08/06/2011 5:03 PM TRAINING CONSULTANT Impressions 08/06/2011 5:03 PM TRAINING CONSULTANT PICC ending in the mid superior vena cava Large hiatus hernia Narrative 08/06/2011 5:03 PM TRAINING CONSULTANT Chest, one view portable: DATE: 08/06/2011 at 1540 hours INDICATION: PICC placement. FINDINGS: Multiple views are obtained, one of which faintly demonstrates the right arm PICC ending in the mid superior vena cava. The lungs are clear but there is a large rounded retrocardiac density compatible with a hiatus hernia. Procedure Note Parker Daley MD - 08/06/2011 Chest, one view portable: DATE: 08/06/2011 at 1540 hours INDICATION: PICC placement. FINDINGS: Multiple views are obtained, one of which faintly demonstrates the right arm PICC ending in the mid superior vena cava. The lungs are clear but there is a large rounded retrocardiac density compatible with a hiatus hernia. IMPRESSION PICC ending in the mid superior vena cava Large hiatus hernia Coleen Lenz MD DIAGNOSTIC IMAGING O RDERABLES * IP CONSULT TO CARDIOTHORACIC SURGERY (08/06/2011 1:28 PM TRAINING CONSULTANT) Narrative Daniel Kuhn MD - 08/06/2011 1:28 PM TRAINING CONSULTANT BRITTNEY Thomson 08/06/2011 11:04 AM CTSI Consult Note Subjective: Patient is a 71 y.o. male with a history of bioprosthetic AVR who was admitted with a 1 month history of prod cough, 10# weight loss, and pleuritic type chest discomfort. He had been seen by his PCP approx 5 days prior to admission, had blood cultures drawn, and was started on po Levaquin. His symptoms continued, and he was admitted for further evaluation and treatment. Blood cultures grew an alpha strep (per [facility]). ID was consulted. Cardiology was consulted to r/o valvular endocarditis. NELA was performed 08/05, but was a difficult study that did not reveal any vegetations. TTE is pending. CTSI is consulted for possible reoperative aortic valve replacement. Referring Physician: Amelia Dhaliwal MD Primary Care Physician: Brooks Burnett MD Patient Contact info: [phone] (home) Past Medical History Diagnosis Date Diabetes mellitus type II History of heart valve replacement with porcine valve HTN (hypertension) Atrial fibrillation LACY on CPAP Past Surgical History: Bioprosthetic AVR 2007 Penile implant Prior to Admission medications Medication Sig Start Date End Date Taking? Authorizing Provider glipiZIDE (GLUCOTROL) 5 MG tablet Take 5 mg by mouth 2 times daily before meals. Yes Historical Provider, metformin ER 24hr (GLUCOPHAGE XR) 500 MG tablet Take 500 mg by mouth daily with dinner. Yes Historical Provider, oxybutynin CR 24hr (DITROPAN-XL) 10 MG tablet Take 10 mg by mouth at bedtime. Indications: Frequent Urination Yes Historical Provider, allopurinol (ZYLOPRIM) 300 MG tablet Take 300 mg by mouth once daily. Indications: Primary Gout Yes Historical Provider, omeprazole (PRILOSEC) 40 MG capsule Take 40 mg by mouth daily before breakfast. Indications: GERD-Related Laryngitis Yes Historical Provider, metoprolol succinate XL 24hr (TOPROL XL) 50 MG tablet Take 50 mg by mouth once daily. Indications: Supraventricular Cardiac Arrhythmia Yes Historical Provider, amLODIPine (NORVASC) 5 MG tablet Take 5 mg by mouth once daily. Indications: High Blood Pressure Yes Historical Provider, amiodarone (CORDARONE) 200 MG tablet Take 200 mg by mouth once daily. Indications: Atrial Fibrillation Yes Historical Provider, potassium chloride (KLOR-CON) 10 MEQ tablet Take 10 mEq by mouth 2 times daily. Indications: High Blood Pressure Yes Historical Provider, gemfibrozil (LOPID) 600 MG tablet Take 600 mg by mouth 2 times daily before meals. Indications: Type IV Hyperlipidemia Yes Historical Provider, MEDICATIONS FOR CURRENT ENCOUNTER: SCHEDULED MEDICATIONS: *Hold/Avoid Medication, Other, DIRECTED allopurinol (ZYLOPRIM) tablet 300 mg, Oral, QDAY amiodarone (CORDARONE) tablet 200 mg, Oral, QDAY amLODIPine (NORVASC) tablet 5 mg, Oral, QDAY cefTRIAXone (ROCEPHIN) IVPB 2 g, Intravenous, q12h gemfibrozil (LOPID) tablet 600 mg, Oral, BID AC glipiZIDE (GLUCOTROL) tablet 5 mg, Oral, BID AC heparin injection 5,000 Units, Subcutaneous, BID metformin ER 24hr (GLUCOPHAGE XR) tablet 500 mg, Oral, QDAY WITH DINNER metoprolol succinate XL 24hr (TOPROL XL) tablet 50 mg, Oral, QDAY oxybutynin CR 24hr (DITROPAN-XL) tablet 10 mg, Oral, NIGHTLY pantoprazole EC (PROTONIX) tablet 40 mg, Oral, QDAY potassium chloride SA (K-DUR) tablet 10 mEq, Oral, BID CONTINUOUS MEDICATIONS: PRN MEDICATIONS: dextrose (Diabetic Use) 40 % oral gel 1 Tube, Oral, PRN dextrose 50% injection 12.5-25 g, Intravenous, PRN glucagon (GLUCAGEN) injection 1 mg, Intramuscular, PRN No Known Allergies History Substance Use Topics Smoking status: Never Smoker Smokeless tobacco: Not on file Alcohol Use: Not on file Family History: Mother of [place] age 80 Family history of premature heart disease (< 55 male or < 65 female): No Review of Systems A comprehensive review of systems was negative except as described in HPI. Exam: General appearance: alert, cooperative, no distress Heart: regular rhythm, normal S1 and S2, without rubs or gallops; Grade 3/6 MAEGAN Lungs: breath sounds normal and symmetric; no rales or wheezes Abdomen: soft without mass, non-tender, with normal bowel sounds Extremities: no clubbing, cyanosis or edema normal dentition for age Objective: BP: 122/90 Pulse: 66 Temp: 97.7 F Resp: 20 Wt: 264 lb (119.75 kg) BMI: 36.82 kg/m2 SpO2: 97% FiO2: Data Review: Component Name 08/04/11 1820 SODIUM 140 POTASSIUM 3.5 CHLORIDE 102 CO2 26 BUN 17 CREATININE 1.39* GLUCOSE 100 CALCIUM 8.9 ALBUMIN 3.2* ALKPHOS 71 ALT 32 AST 15 TBIL 0.3 TPROT 7.4 EGFR 50 Component Name 08/05/11 0414 08/04/11 1820 WBC -- 11.5* HGB -- 12.5* HCT 34.1* 36.9* PLTCOUNT -- 211 Component Name 08/06/11 0130 COLORUA Light Yellow CHARACTERUA Clear SPECGRAVUA 1.010 PHUA 6.5 PROTEINUA NEGATIVE BLOODUA NEGATIVE LEUKOCYTEUA NEGATIVE NITRITEUA NEGATIVE GLUCOSEUA NEGATIVE KETONEUA NEGATIVE BILIRUBINUA NEGATIVE UROBILINUA 0.2 WBCUA -- RBCUA -- EPITHUA -- MUCUSUA -- CASTUA -- CRYSTALUA -- BACTERIAUA -- YEASTUA -- TRICHUA -- ECG: Sinus rhythm with sinus arrhythmia and first degree AVB GA 432 ms Chest X-Ray: Chest, 2 views: DATE: 08/04/2011. INDICATION: Chest inflammation or infection. FINDINGS: Since 2006 a large hiatus hernia has increased now measuring 9.3 cm in longest dimension. The lungs are clear and free of effusion. The heart is not enlarged but there are mediastinal postoperative changes consistent with coronary bypass. There is a chronic compression fracture in the midthoracic spine. IMPRESSION 1. Lungs clear 2. Chronic large hiatus hernia 3. Chronic mid thoracic compression fracture. Signed by: PARKER DALEY MD on WedAug 05, 2011 09:37:00 AM TRAINING CONSULTANT NELA 08/05/11 Study was technically difficult - Pt has a large Hiatal Hernia and I was unable to enter his Stomach. Due to the hernia his heart is further displaced anteriorly and images Were practically un-obtainable. At 35 cms from his teeth a very limited view was obtained which revealed the prosthesis, but we where Unable to detect Vegetations. A Transtoraxic Echo will be performed Note - Of concern is that in his monitor the Pt has a severe First Degree AV Block TTE: pending Assessment/Plan: Telemetry shows first degree AVB with intermittent second degree AVB- will dc rate limiting meds ( Toprol and amiodarone) Await results of transthoracic echo, but will likely recommend long-term antibiotic therapy and repeat echo in 6-8 weeks. Thank you for this consultation. Brooks Burnett MD INPATIENT CONSULT OR DERABLES * (ABNORMAL) C-REACTIVE PROTEIN (08/06/2011 11:09 AM TRAINING CONSULTANT) Only the most recent of2 resultswithin the time period is included. Pathologist [facility] C-Reactive Protein 2.51(H) 0.000 - 0.500 mg/dl [facility] Blood specimen (specimen) BLOOD SPECIMEN / Unknown 08/06/2011 11:09 AM TRAINING CONSULTANT 08/06/2011 11:32 AM TRAINING CONSULTANT Daren Weinberg MD LAB - CHEMISTRY ORD ERABLES Performing Organization Address [facility] Co de Phone Number [facility] [address] [place] [phone] * (ABNORMAL) SED RATE WESTERGREN AUTO (08/06/2011 11:09 AM TRAINING CONSULTANT) Only the most recent of2 resultswithin the time period is included. Pathologist [facility] Erythrocyte Sedimentation Rate Westergren 66(H) 0 - 20 mm/Hr [facility] Hematocrit 37.0(L) 40.0 - 54.0 % [facility] Blood specimen (specimen) BLOOD SPECIMEN / Unknown 08/06/2011 11:09 AM TRAINING CONSULTANT 08/06/2011 11:32 AM TRAINING CONSULTANT Daren Weinberg MD LAB - HEMATOLOGY OR DERABLES Performing Organization Address City/[facility] Co de Phone Number [facility] [address] [place] [phone] * (ABNORMAL) CBC W AUTO DIFFERENTIAL (08/06/2011 11:09 AM TRAINING CONSULTANT) Only the most recent of2 resultswithin the time period is included. [facility] WBC 9.7 4.0 - 10.0 K/CUMM [facility] RBC 4.11(L) 4.40 - 6.40 M/CUMM [facility] Hemoglobin 12.4(L) 13.5 - 18.0 gm/dL [facility] Hematocrit 37.0(L) 40.0 - 54.0 % [facility] MCV 90.0 80.0 - 100.[address] [facility] MCH 30.2 26.0 - 34.[address] [facility] MCHC 33.5 31.0 - 37.0 gm/dL [facility] Platelet Count 196 150 - 400 K/CUMM [facility] RDW 13.2 11.5 - 14.5 % [facility] Granulocytes % 76.9(H) 50 - 70 % [facility] Lymphocytes % 14.1(L) 20 - 40 % [facility] Monocytes % 7.7 0 - 12 % [facility] Eosinophils % 0.8 0 - 5 % [facility] Basophils % 0.2 0 - 2 % [facility] Granulocytes Absolute 7.44(H) 2.00 - 7.00 x1000/cmm [facility] Lymphocytes Absolute 1.37 0.80 - 4.00 x1000/cmm [facility] Monocytes Absolute 0.75 0.00 - 1.20 x1000/cmm [facility] Eosinophils Absolute 0.08 0.00 - 0.50 x1000/cmm [facility] Basophils Absolute 0.02 0.00 - 0.20 x1000/cmm [facility] Blood specimen (specimen) BLOOD SPECIMEN / Unknown 08/06/2011 11:09 AM TRAINING CONSULTANT 08/06/2011 11:32 AM TRAINING CONSULTANT Daren Weinberg MD LAB - HEMATOLOGY OR DERABLES Performing Organization Address City/State/[facility] Co de Phone Number [facility] [address] [place] [address] * URINALYSIS ROUTINE AUTO (08/06/2011 1:30 AM TRAINING CONSULTANT) Source Clean Catch [facility] Color UA Light Yellow [facility] Character UA Clear [facility] Glucose UA NEGATIVE NEGATIVE mg/dl [facility] Bilirubin UA NEGATIVE NEGATIVE [facility] Ketone UA NEGATIVE NEGATIVE mg/dl [facility] Specific [place] UA 1.010 1.003 - 1.030 [facility] Blood UA NEGATIVE NEGATIVE [facility] pH UA 6.5 5.0 - 9.0 [facility] Protein UA NEGATIVE NEGATIVE-TR CONNIE mg/dl [facility] Urobilinogen UA 0.2 0.2 - 1.0 [place] Units/dl [facility] Nitrite UA NEGATIVE NEGATIVE [facility] Leukocyte UA NEGATIVE NEGATIVE [facility] URINE SPECIMEN OBTAINED BY CLEAN CATCH PROCEDURE / Unknown 08/06/2011 1:30 AM TRAINING CONSULTANT 08/06/2011 2:33 AM TRAINING CONSULTANT Daren Weinberg MD LAB - URINALYSIS OR DERABLES Performing Organization Address City/State/[facility] Co de Phone Number [facility] [address] [place] [address] * XR RIBS BILATERAL 3 VW (08/05/2011 5:28 PM TRAINING CONSULTANT) Anatomical Region Laterality Modality Chest Radio Fluoroscop y 08/05/2011 6:46 PM TRAINING CONSULTANT Impressions 08/05/2011 6:46 PM TRAINING CONSULTANT Osteopenia. No definite rib fracture seen. Narrative 08/05/2011 6:46 PM TRAINING CONSULTANT Bilateral rib: HISTORY: Rib pain. The ribs are osteopenic. There is no definite fractures is seen. The visualized lung morrow are clear. There is no pneumothorax or pleural fluid Procedure Note Jordyn Cardoso MD - 08/05/2011 Bilateral rib: HISTORY: Rib pain. The ribs are osteopenic. There is no definite fractures is seen. The visualized lung morrow are clear. There is no pneumothorax or pleural fluid IMPRESSION Osteopenia. No definite rib fracture seen. Daren Weinberg MD DIAGNOSTIC IMAGING ORDERABLES * NUTRITION CONSULT (08/05/2011 4:52 PM TRAINING CONSULTANT) Narrative Magdalene Ochoa, JUAN/MEGHANA - 08/05/2011 4:52 PM TRAINING CONSULTANT Magdalene Ochoa RD/MEGHANA 08/05/2011 4:52 PM Initial Nutrition Assessment Pt states he would eat about 4 meals per day. When he got sick he cut back to 3 meals per day. Has lost about 30# since Thanksgi. States his appetite is back and feels like eating again. A: Relevant Medical Problems: endocarditis, DM, Lacy, HTN, afib Height: 5' 11 (180.3 cm) Wt Readings from Last 3 Encounters: 08/05/11 264 lb (119.75 kg) IBW: 172# 153%IBW Adjusted Body Weight: 195# BMI: Body mass index is 36.82 kg/(m^2).BMI Range: Severely Obese Class 2 Unintentional weight loss: 30# in 3 weeks per pt and family Current Nutrition Order: regular P.O.Intake for the past 48 hrs: No Data Recorded Estimated Needs: KCAL: 2380 fely/d(20cal/kg BW adj for obesity) Protein (g): 119g/d(1g/kg BW) Fluid (ml): 2380 ml/d(1ml/kcal) Labs: Component Name 08/04/11 1820 SODIUM 140 POTASSIUM 3.5 CHLORIDE 102 CO2 26 BUN 17 CREATININE 1.39* GLUCOSE 100 CALCIUM 8.9 ALBUMIN 3.2* ALKPHOS 71 ALT 32 AST 15 TBIL 0.3 TPROT 7.4 EGFR 50 Patient Vitals for the past 30 hrs: Glucose Bedside (mg/dL) 08/04/11 2216 206 mg/dL Intake/Output Summary (Last 24 hours) at 08/05/11 1650 Last data filed at 08/05/11 1200 Gross per 24 hour Intake 650 ml Output 850 ml Net -200 ml PERTINENT MEDICATIONS FOR CURRENT ENCOUNTER: SCHEDULED MEDICATIONS: *Hold/Avoid Medication, Other, DIRECTED allopurinol (ZYLOPRIM) tablet 300 mg, Oral, QDAY amiodarone (CORDARONE) tablet 200 mg, Oral, QDAY amLODIPine (NORVASC) tablet 5 mg, Oral, QDAY cefTRIAXone (ROCEPHIN) IVPB 2 g, Intravenous, q12h gemfibrozil (LOPID) tablet 600 mg, Oral, BID AC glipiZIDE (GLUCOTROL) tablet 5 mg, Oral, BID AC heparin injection 5,000 Units, Subcutaneous, BID metformin ER 24hr (GLUCOPHAGE XR) tablet 500 mg, Oral, QDAY WITH DINNER metoprolol succinate XL 24hr (TOPROL XL) tablet 50 mg, Oral, QDAY oxybutynin CR 24hr (DITROPAN-XL) tablet 10 mg, Oral, NIGHTLY pantoprazole EC (PROTONIX) tablet 40 mg, Oral, QDAY potassium chloride SA (K-DUR) tablet 10 mEq, Oral, BID CONTINUOUS MEDICATIONS: Skin Intact ASSESSMENT:nursing consult received for pt who has lost 30# over past 3 weeks due to a decrease in his appetite. Pt has bacteremia and hx of DM. Blood sugars when checked were 200. Currently pt is on regular diet and OHA. po intake has not been recorded yet. Alb is low normal. D: Nutrition Diagnostic Statement: (NC-2.2) Altered nutrition-related lab values related to: regular diet order as evidenced by : blood sugars > 200 I: Nutrition Intervention(s) #1: (ND-1) Meals and snacks: (regular) Nutrition recommendation: alter/change nutrition order change to 2200 fely ADA diet; consider checking blood sugars. Will add HS snack to regimen of fruit. Will monitor po intake, check labs, wt and blood sugars. Education was not indicated GOALS: M: Nutrition Goal #1: Biochemical data will be improved/normalized Nutrition Goal #1 Timeframe: Within 24 - 72 hours Magdalene Ochoa, /RD/LD 08/05/2011 4:45 PM Procedure Note Magdalene Ochoa, JUAN/LD - 08/05/2011 4:44 PM CST Initial Nutrition Assessment Pt states he would eat about 4 meals per day. When he got sick he cutback to 3 meals per day. Has lost about 30# since . Stateshis appetite is back and feels like eating again. A: Relevant Medical Problems: endocarditis, DM, Lacy, HTN, afib Height: 5' 11 (180.3 cm) Wt Readings from Last 3 Encounters: 08/05/11 264 lb (119.75 kg) IBW: 172# 153%IBW Adjusted Body Weight: 195# BMI: Body mass index is36.82 kg/(m^2).BMI Range: Severely Obese Class 2 Unintentional weight loss: 30# in 3 weeks per pt and family Current Nutrition Order: regular P.O.Intake for the past 48 hrs: No Data Recorded Estimated Needs: KCAL: 2380 fely/d(20cal/kg BW adj for obesity) Protein (g): 119g/d(1g/kg BW) Fluid (ml): 2380 ml/d(1ml/kcal) Labs: Component Name 08/04/11 1820 SODIUM 140 POTASSIUM 3.5 CHLORIDE 102 CO2 26 BUN 17 CREATININE 1.39* GLUCOSE 100 CALCIUM 8.9 ALBUMIN 3.2* ALKPHOS 71 ALT 32 AST 15 TBIL 0.3 TPROT 7.4 EGFR 50 Patient Vitals for the past 30 hrs: Glucose Bedside (mg/dL) 08/04/11 2216 206 mg/dL Intake/Output Summary (Last 24 hours) at 08/05/11 1650 Last data filed at 08/05/11 1200 Gross per 24 hour Intake 650 ml Output 850 ml Net -200 ml PERTINENT MEDICATIONS FOR CURRENT ENCOUNTER: SCHEDULED MEDICATIONS: *Hold/Avoid Medication, Other, DIRECTED allopurinol (ZYLOPRIM) tablet 300 mg, Oral, QDAY amiodarone (CORDARONE) tablet 200 mg, Oral, QDAY amLODIPine (NORVASC) tablet 5 mg, Oral, QDAY cefTRIAXone (ROCEPHIN) IVPB 2 g, Intravenous, q12h gemfibrozil (LOPID) tablet 600 mg, Oral, BID AC glipiZIDE (GLUCOTROL) tablet 5 mg, Oral, BID AC heparin injection 5,000 Units, Subcutaneous, BID metformin ER 24hr (GLUCOPHAGE XR) tablet 500 mg, Oral, QDAY WITHDINNER metoprolol succinate XL 24hr (TOPROL XL) tablet 50 mg, Oral, QDAY oxybutynin CR 24hr (DITROPAN-XL) tablet 10 mg, Oral, NIGHTLY pantoprazole EC (PROTONIX) tablet 40 mg, Oral, QDAY potassium chloride SA (K-DUR) tablet 10 mEq, Oral, BID CONTINUOUS MEDICATIONS: Skin Intact ASSESSMENT:nursing consult received for pt who has lost 30# over past 3weeks due to a decrease in his appetite. Pt has bacteremia and hx of DM.Blood sugars when checked were 200. Currently pt is on regular diet andOHA. po intake has not been recorded yet. Alb is low normal. D: Nutrition Diagnostic Statement: (NC-2.2) Altered nutrition-related labvalues related to: regular diet order as evidenced by : blood sugars >200 I: Nutrition Intervention(s) #1: (ND-1) Meals and snacks: (regular) Nutrition recommendation: alter/change nutrition order change to 2200 calADA diet; consider checking blood sugars. Will add HS snack to regimen of fruit. Will monitor po intake, check labs, wt and blood sugars. Education was not indicated GOALS: M: Nutrition Goal #1: Biochemical data will be improved/normalized Nutrition Goal #1 Timeframe: Within 24 - 72 hours Magdalene Ochoa MS/RD/LD 08/05/2011 4:45 PM Brooks Burnett MD INPATIENT ANCILLARY CONSULT * ECHOCARDIOGRAM TRANSESOPHAGEAL (08/05/2011 10:42 AM TRAINING CONSULTANT) 08/05/2011 10:4 2 AM TRAINING CONSULTANT Narrative 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 - History: - Diabetes, porcine heart valve, hypertension, atrial fibrillation and LACY on CPAP. - Procedure information: - This was a technically difficult study. DUE TO THE PRESENCE OF A LARGE HIATAL HERNIA, THERE WAS PRACTICALLY NO ESOPHAGEAL CONTACT WITH THE HEART. I WAS ALSO UNABLE TO ENTER THE GASTRIC CHAMBER DUE TO THE ABOVE ANOMALY - Left ventricle: - Ejection fraction was estimated to be 65 %. - This study was inadequate for the evaluation of regional wall motion. - Wall thickness was normal. - Left atrium: - The atrium was mildly dilated. Indications: Endocarditis of porcine aortic valve. History: Prior history: Diabetes, porcine heart valve, hypertension, atrial fibrillation and LACY on CPAP. Procedure: The procedure was performed in the echo lab. This was a routine study. The transesophageal approach was used. Systolic blood pressure was 112 mmHg. Diastolic blood pressure was 75 mmHg. This was a technically difficult study. DUE TO THE PRESENCE OF A LARGE HIATAL HERNIA, THERE WAS PRACTICALLY NO ESOPHAGEAL CONTACT WITH THE HEART. I WAS ALSO UNABLE TO ENTER THE GASTRIC CHAMBER DUE TO THE ABOVE ANOMALY Left ventricle: Size was normal. Ejection fraction was estimated to be 65 %. This study was inadequate for the evaluation of regional wall motion. Wall thickness was normal. Doppler: The study was not technically sufficient to allow evaluation of LV diastolic function. Aortic valve: A porcine bioprosthesis was present. Doppler: There was mild regurgitation. Aorta: The root exhibited normal size. There was no atheroma. There was no evidence for dissection. There was no evidence for aneurysm. Mitral valve: Not well visualized. Left atrium: The atrium was mildly dilated. Pulmonic valve: Not well visualized. Pericardium: There was no pericardial effusion. The pericardium was normal in appearance. 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 - History: - Diabetes, porcine heart valve, hypertension, atrial fibrillation and LACY on CPAP. - Procedure information: - This was a technically difficult study. DUE TO THE PRESENCE OF A LARGE HIATAL HERNIA, THERE WAS PRACTICALLY NO ESOPHAGEAL CONTACT WITH THE HEART. I WAS ALSO UNABLE TO ENTER THE GASTRIC CHAMBER DUE TO THE ABOVE ANOMALY - Left ventricle: - Ejection fraction was estimated to be 65 %. - This study was inadequate for the evaluation of regional wall motion. - Wall thickness was normal. - Left atrium: - The atrium was mildly dilated. Indications: Endocarditis of porcine aortic valve. History: Prior history: Diabetes, porcine heart valve, hypertension, atrial fibrillation and LACY on CPAP. Procedure: The procedure was performed in the echo lab. This was a routine study. The transesophageal approach was used. Systolic blood pressure was 112 mmHg. Diastolic blood pressure was 75 mmHg. This was a technically difficult study. DUE TO THE PRESENCE OF A LARGE HIATAL HERNIA, THERE WAS PRACTICALLY NO ESOPHAGEAL CONTACT WITH THE HEART. I WAS ALSO UNABLE TO ENTER THE GASTRIC CHAMBER DUE TO THE ABOVE ANOMALY Left ventricle: Size was normal. Ejection fraction was estimated to be 65 %. This study was inadequate for the evaluation of regional wall motion. Wall thickness was normal. Doppler: The study was not technically sufficient to allow evaluation of LV diastolic function. Aortic valve: A porcine bioprosthesis was present. Doppler: There was mild regurgitation. Aorta: The root exhibited normal size. There was no atheroma. There was no evidence for dissection. There was no evidence for aneurysm. Mitral valve: Not well visualized. Left atrium: The atrium was mildly dilated. Pulmonic valve: Not well visualized. Pericardium: There was no pericardial effusion. The pericardium was normal in appearance. Prepared and signed by Dimas Dhaliwal MD Signed 06-Aug-2011 08:24:48 Dimas Dhaliwal MD ECHO ORDERABLES Performing Organization Address [facility] Co de Phone Number [facility] [address] [place] [address] * LDH BLOOD (08/05/2011 4:14 AM TRAINING CONSULTANT) LDH 201 105 - 333 U/L [facility] Blood specimen (specimen) BLOOD SPECIMEN / Unknown 08/05/2011 4:14 AM TRAINING CONSULTANT 08/05/2011 5:23 AM TRAINING CONSULTANT Coleen Lenz MD LAB - CHEMISTRY ANAHI LEE Performing Organization Address [facility] Co de Phone Number [facility] [address] [place] [address] * IP CONSULT TO INFECTIOUS DISEASES (08/05/2011 1:57 AM TRAINING CONSULTANT) Narrative Coleen Lenz MD - 08/05/2011 1:57 AM TRAINING CONSULTANT Coleen Lenz MD 08/05/2011 1:57 AM Infectious Disease Consult brief initial note: Pt seen, hx elicited and exam performed. 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 Also has diabetes, hypertension, PAF,sleep apnea. 1 month hx of a low grade resp infectious illness with progressive weight loss, night sweats, and fever. No SOB or neuro sxs. Only focal sx is 1 wk hx of L ant costal margin superficial tenderness. 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 Pre rx bld cxs ([facility]) have grown an alpha strep. Pts constitutional sxs somewhat improved and L costal edge pain decreasing. Exam signif for afebrile, nontoxic well appearance, with no distress. Lungs clear. Loud 3/6 MAEGAN, no diastolic component appreciated (per Dr. Burnett murmur is chronic and stable), focal superficial tenderness at L ant costal edge without induration or erythema.. No spleen percussed or palpated. Labs: Wbc 11.5, hgb 12.5, plts 211. 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 osteomyelitis or infectious costochondritis or an unusual embolic or immune phenomenon. The sxs are so characteristic of a subacute BE presentation, that this alpha strep bacteremia is highly unlikely to be a transient coincidence.. Rec: --Repeat bld cxs in effort to confirm organism, likely (-) due to pre Rx, will try to get organism from [facility] for speciation and TERRELL studies to assist in defining optimal Rx. Alpha strep is the only organism infecting a well epithelialized prosthetic valve that has a high likelihood of cure with extended medical Rx alone. Hope that the perivalvular leak does not increase risk of annular infection. --Initiate Rx with Ceftriaxone 2 gm IVPB q 12h. Will plan on 6 wks beta lactam IV rx, and hope to avoid need for aminoglycoside in this elderly diabetic. --check LDH, ESR,CRP --Agree with NELA Will follow closely with you and advise. Coleen Lenz MD [phone] Procedure Note Coleen Lenz MD - 08/04/2011 7:15 PM CST Infectious Disease Consult brief initial note: Pt seen, hx elicited and exam performed. 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 Also has diabetes, hypertension, PAF,sleep apnea. 1 month hx of alow grade resp infectious illness with progressive weight loss, nightsweats, and fever. No SOB or neuro sxs. Only focal sx is 1 wk hx of L antcostal margin superficial tenderness. 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 Pre rx bld cxs([facility]) have grown an alpha strep. Pts constitutional sxs somewhatimproved and L costal edge pain decreasing. Exam signif for afebrile, nontoxic well appearance, with no distress.Lungs clear. Loud 3/6 MAEGAN, no diastolic component appreciated (per murmur is chronic and stable), focal superficial tenderness at L antcostal edge without induration or erythema.. No spleen percussed orpalpated. Labs: Wbc 11.5, hgb 12.5, plts 211. 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 osteomyelitis or infectiouscostochondritis or an unusual embolic or immune phenomenon. The sxs areso characteristic of a subacute BE presentation, that this alpha strepbacteremia is highly unlikely to be a transient coincidence.. Rec: --Repeat bld cxs in effort to confirm organism, likely (-) due to pre Rx,will try to get organism from [facility] for speciation and TERRELL studies toassist in defining optimal Rx. Alpha strep is the only organism infectinga well epithelialized prosthetic valve that has a high likelihood of curewith extended medical Rx alone. Hope that the perivalvular leak does notincrease risk of annular infection. --Initiate Rx with Ceftriaxone 2 gm IVPB q 12h. Will plan on 6 wks betalactam IV rx, and hope to avoid need for aminoglycoside in this elderlydiabetic. --check LDH, ESR,CRP --Agree with NELA Will follow closely with you and advise. Coleen Lenz MD [phone] Brooks Burnett MD INPATIENT CONSULT OR DERABLES * CULTURE BLOOD (08/04/2011 10:20 PM TRAINING CONSULTANT) Only the most recent of3 resultswithin the time period is included. Result [facility] Comment: Final No growth Blood specimen (specimen) PERIPHERAL BLOOD / Unknown 08/04/2011 10:20 PM TRAINING CONSULTANT 08/04/2011 10:55 PM TRAINING CONSULTANT Narrative Resulting Agency Comment Performed By [facility];[address];[place] [address] Coleen Lenz MD LAB - MICROBIOLOGY O RDERABLES [facility] [address] [place] [address] * XR CHEST PA AND LATERAL (08/04/2011 8:43 PM TRAINING CONSULTANT) Anatomical Region Laterality Modality Chest Radiographic Geri ging 08/05/2011 9:37 AM TRAINING CONSULTANT Impressions 08/05/2011 9:37 AM TRAINING CONSULTANT 1. Lungs clear 2. Chronic large hiatus hernia 3. Chronic mid thoracic compression fracture. Narrative 08/05/2011 9:37 AM TRAINING CONSULTANT Chest, 2 views: DATE: 08/04/2011. INDICATION: Chest inflammation or infection. FINDINGS: Since 2006 a large hiatus hernia has increased now measuring 9.3 cm in longest dimension. The lungs are clear and free of effusion. The heart is not enlarged but there are mediastinal postoperative changes consistent with coronary bypass. There is a chronic compression fracture in the midthoracic spine. Procedure Note Parker Daley MD - 08/05/2011 Chest, 2 views: DATE: 08/04/2011. INDICATION: Chest inflammation or infection. FINDINGS: Since 2006 a large hiatus hernia has increased now measuring 9.3 cm in longest dimension. The lungs are clear and free of effusion. The heart is not enlarged but there are mediastinal postoperative changes consistent with coronary bypass. There is a chronic compression fracture in the midthoracic spine. IMPRESSION 1. Lungs clear 2. Chronic large hiatus hernia 3. Chronic mid thoracic compression fracture. Brooks Burnett MD DIAGNOSTIC IMAGING O KIMMY * (ABNORMAL) COMPREHENSIVE METABOLIC PANEL (08/04/2011 6:20 PM TRAINING CONSULTANT) Sodium 140 136 - 145 mmol/L [facility] Potassium 3.5 3.5 - 5.1 mmol/L [facility] Chloride 102 98 - 107 mmol/L [facility] BUN 17 7 - 21.0 mg/dl [facility] Creatinine 1.39(H) 0.5 - 1.3 mg/dl [facility] Glucose 100 75 - 110 mg/dl [facility] Calcium 8.9 8.5 - 10.1 mg/dl [facility] Alkaline Phosphatase 71 38 - 126 U/L [facility] AST 15 5.0 - 40 U/L [facility] Bilirubin Total 0.3 0.2 - 1.0 mg/dl [facility] Protein Total 7.4 6.4 - 8.2 gm/dl [facility] Albumin 3.2(L) 3.4 - 5.0 gm/dl [facility] CO2 26 22 - 30 mmol/L [facility] ALT 32 12.0 - 78.0 U/L [facility] eGFR by MDRD 50 Not applicable >70 yrs old mL/min/1.73m2 [facility] Comment eGFR [facility] Comment: The eGFR does not apply to patients who are younger than 18 or older than 70. Blood specimen (specimen) BLOOD SPECIMEN / Unknown 08/04/2011 6:20 PM TRAINING CONSULTANT 08/04/2011 6:52 PM TRAINING CONSULTANT Brooks Burnett MD LAB - CHEMISTRY [facility] Organization Address City/State/ZIP Co de Phone Number [facility] [address] [place] [address] * EKG 12-LEAD (08/04/2011) Brooks Burnett MD ECG ORDERABLES * GROSS + MICRO EXAM (03/02/2007 10:39 AM CDT) Result CASE NUMBER [id number] Comment: ORDERING PHYSICIAN DANIEL KUHN SPECIMEN TYPE Heart Valve-Aortic Valve Date 03/03/2007 Physician Kenisha Kuhn Gross Description The specimen is labeled with the patient's name, Clifton Gonzalez, and aortic valve. It consists of a 3 x 2 x 1 cm aggregate of multiple irregular glistening fragments of hardwick tissue, grossly consistent with semi-lunar valve. Areas of marked calcification and grittiness measuring up to 0.6 cm is seen on the cut surface. Dental Receptionist sections of the specimen are submitted in a single cassette following decalcification. LW haider Microscopic Exam Microscopic examination reveals fragments of valvular tissue with large and extensive areas of distrophic calcification. Areas of hyalinization and edematous change are noted. GM/na Diagnosis I. Aortic valve, excision -- Calcification and hyalinization, extensive GM/na Pack Changer na Pathologist Johanna Norris M.D. [place]. 03/07/2007 1043 <1> CPT code 49304,24228 MISCELLANEOUS SAMPLES / Unknown 03/02/2007 10:39 AM CDT 03/03/2007 7:39 AM CDT Historical Provider MD LAB - PATHOLOGY/C YTOLOGY ORDERABLES Care Teams Surgical Consultant Relationship Specialty Start Date End Date Ant Meyer MD [address] [place] [phone] PCP - General Family Medicine 01/09/22
--- OUTSIDE RECORDS SUMMARY | 2024-10-06 11:38 | XMS_ITS | Clinical Summary ---
Author Organization [facility] [employer] Address [address] [place] [address] Care Team Providers Care Proposal Engineer Name Role Phone Ant Meyer MD Primary Care Provider [phone] Source Comments [employer],non-owned Affiliates and Associated Physician Practices is amultiple site organization consisting of ambulatory clinics and hospital sitesin [place], [place], [place] and [place]. This disclosure is being madepursuant to the Care Everywhere program and may not contain all information available regarding this patient. Last updated 18.[employer] Allergies No known active allergies Medications * [...] Comments Blood Pressure 145/93 08/08/2011 5:36 PM STONE LATHE OPERATOR Pulse 84 08/08/2011 5:36 PM STONE LATHE OPERATOR Temperature 36.6 C (97.8 F) 08/08/2011 5:36 PM STONE LATHE OPERATOR Respiratory Rate 18 08/08/2011 5:36 PM STONE LATHE OPERATOR Oxygen Saturation 97% 08/08/2011 5:36 PM STONE LATHE OPERATOR Inhaled Oxygen Concentration - - Weight 119.7 kg (264 lb) 08/05/2011 10:45 AM STONE LATHE OPERATOR Height 180.3 cm (5' 11 ) 08/05/2011 10:45 AM STONE LATHE OPERATOR Body Mass Index 36.82 08/05/2011 10:45 AM STONE LATHE OPERATOR Plan of Treatment Health Maintenance Due Date Last Done Comments MEDICARE AWV 12 MONTHS 1940 DTAP/TDAP/TD VACCINES (1 - Tdap) 1958 PNEUMOCOCCAL VACCINE 50+ (1 of 1 - PCV) 1989 ZOSTER VACCINE (1 of 2) 1989 Respiratory Syncytial Virus (RSV) Vaccine Pt: or over 60 yrs (1 - 1-dose 75+ series) 2014 COVID-19 VACCINE ( - 2023-2 5 season) 2024 INFLUENZA VACCINE (#1) 2024 DEPRESSION SCREENING 08/16/2024 HEPATITIS B VACCINE Aged Out No longe r eligible based on patient's age to complete this topic HIB VACCINE Aged Out No longer eligi ble based on patient's age to complete this topic HPV VACCINE Aged Out No longer eligi ble based on patient's age to complete this topic MENINGOCOCCAL (Group B) VACCINE Aged Out No longer eligible based on patient's age to complete this topic MENINGOCOCCAL VACCINE Aged Out No alek peace eligible based on patient's age to complete this topic Advance Directives * FULL RESUSCITATION (Latest Code Status on File) Date Activated Date Inactivated Comments 08/05/2011 7:44 AM 08/09/2011 10:20 AM Care Teams Proposal Engineer Relationship Specialty Start Date End Date Ant Meyer MD [address] [place] [phone] PCP - General Family Medicine 01/09/22
--- OUTSIDE RECORDS SUMMARY | 2024-10-06 11:40 | XMS_ITS | Continuity of Care Document ---
Author Organization [facility] Address [address] [facility] [address] [place] [address] Phone Care Team Providers Care Chief Enterprise Architect Name Role Phone Frannie Lamar MD Unavailable [...] Copied on Encounter OFFICE/OUTPAT IENT VISIT EST [facility] , [address] [address], [place], [address], [place] [phone] [facility] Right hip painPrimary osteoarthritis of right hip 8 [facility] Frannie. [address], [place], [place], [id number] . tel: [phone] OFFICE/OUTPAT IENT VISIT EST [facility] , [address], [address], [phone] [facility] Primary osteoarthritis of right hip 8 Oanh Cameron. [address] [facility], [place], [place], [id number] . tel:[phone] Referring Provider: Ant Michael, [address] , [place], [address] . tel:[phone] OFFICE/OUTPAT IENT VISIT NEW [facility] , [address] [address], [place], [address], [place] [phone] [facility] Body mass index (BMI) 39.0-39.9, adultRight hip painPrimary osteoarthritis of right hip 8 [facility] Frannie. [address], [place], [place], [id number] . tel: [phone] Referring Provider: Rakesh Hugo, [address], [place], [address] . tel:[phone] OFFICE/OUTPAT IENT VISIT NEW [facility] , [address] [address], [place], [address], [place] tel:[phone] [facility] Right hip painPrimary osteoarthritis of right hipBody mass index (BMI) 39.0-39.9, adult 8 Oanh Cameron. [address], [place], [place], [id number] . tel: [phone] Referring Provider: Ant Michael, [address], [place], [address] . tel:[phone] Family History Family Member Type Diagnosis Age At Onset No Information Immunizations Vaccine Date Status Comments Pneumo (2 yrs or older)(PPV) administered Source: Other Provider Payers Payer name Insurance type Covered republican ID Ursula bagley(s) Medicare [id number] [id number] Social History Type Description Quantity Date Captured [...]
== END 2024-10-06 12:33 | disposition home or self-care (01) ==
PROVIDERS: Emergency Provider Nurse Practitioner Family
DX: M86.9 Osteomyelitis, unspecified (principal); I48.91 Unspecified atrial fibrillation; I11.0 Hypertensive heart disease with heart failure; I50.9 Heart failure, unspecified; I25.10 Atherosclerotic heart disease of native coronary artery without angina pectoris; E11.9 Type 2 diabetes mellitus without complications; Z79.01 Long term (current) use of anticoagulants; W01.0XXA Fall on same level from slipping, tripping and stumbling without subsequent striking against object, initial encounter
CPT/HCPCS: 72170; 99213; G0463